=== PATIENT | female | born 1945 | race Caucasian/White ===

== ENCOUNTER → 2017-09-08 09:56 | Outpatient (CLI) | payer MEDICARE, MEDICAID, SELFPAY ==
--- NOTE | 2017-09-08 | DI.MG.S_ITS ---
BILATERAL DIGITAL SCREENING MAMMOGRAM 3D/2D WITH CAD: 09/08/2017 CLINICAL: Routine screening. Comparison is made to exams dated: 02/20/2016 mammogram and 03/05/2016 mammogram - [facility]. The tissue of both breasts is heterogeneously dense. This may lower the sensitivity of mammography. Current study was also evaluated with a Computer Aided Detection (CAD) system. No significant masses, calcifications, or other findings are seen in either breast. There has been no significant interval change. IMPRESSION: NEGATIVE There is no mammographic evidence of malignancy. A 1 year screening mammogram is recommended. This exam was interpreted at Station ID: [id number]. NOTE: For mammograms, a report in lay terms will be sent to the patient. Approximately 15% of breast malignancies will not be visualized mammographically. In the management of a palpable breast mass, a negative mammogram must not discourage biopsy of a clinically suspicious lesion. Electronically Signed By: Xavi sellers/rasta:09/08/2017 17:08:17 letter sent: Normal Exam ACR BI-RADS Category 1: Negative [id number]
== END ==
PROVIDERS: PCP Physician Assistant; Visit Provider Physician Assistant
DX: Z12.31 Encounter for screening mammogram for malignant neoplasm of breast (principal)
CPT/HCPCS: 77063; 77067

== ENCOUNTER → 2017-10-12 10:18 | Outpatient (CLI) | payer MEDICARE, MEDICAID, SELFPAY ==
--- NOTE | 2017-10-12 | DI.US.S_ITS ---
PROCEDURE: US ARTERIAL DUPLEX LE BI INDICATIONS: PERIPHERAL VASCULAR DISEASE TECHNIQUE: Color and pulse Doppler interrogation was performed of both lower extremity arterial systems, with image documentation. COMPARISON: None. FINDINGS: Right lower extremity: Common femoral artery: 101 cm/sec, with biphasic flow. Deep femoral artery: 213 cm/sec, with monophasic flow. Proximal superficial femoral artery: 70 cm/sec, with monophasic flow. Mid superficial femoral artery: 178 cm/sec, with triphasic flow. Distal superficial femoral artery: 114 cm/sec, with monophasic flow. Popliteal artery: 64 cm/sec, with monophasic flow. Posterior tibial artery: 23 cm/sec, with monophasic flow. Anterior tibial artery/dorsalis pedis: 40 cm/sec, with monophasic flow. Hernandez-scale imaging description: Scattered plaque Left lower extremity: Common femoral artery: 199 cm/sec, with monophasic flow. Deep femoral artery: 229 cm/sec, with monophasic flow. Proximal superficial femoral artery: 180 cm/sec, with monophasic flow. Mid superficial femoral artery: 102 cm/sec, with monophasic flow. Distal superficial femoral artery: 78 cm/sec, with monophasic flow. Popliteal artery: No flow Posterior tibial artery: 35 cm/sec, with monophasic flow. Anterior tibial artery/dorsalis pedis: 36 cm/sec, with monophasic flow. Hernandez-scale imaging description: Scattered plaque IMPRESSION: 1. Left popliteal artery is occluded with 2 vessel runoff via collaterals 2. High grade stenosis at the origin of both profundus femoris arteries and possibly at the distal aspect of the left common femoral artery and in the midportion of the right superficial femoral artery. Possibility of stenosis in the proximal left superficial femoral artery is indeterminate. 3. Monophasic waveforms are evident throughout the lower extremities bilaterally. Dictated by: Erik West M.D. on 10/12/2017 at 14:17 Approved by: Erik West M.D. on 10/12/2017 at 14:22
== END ==
PROVIDERS: PCP Physician Assistant; Visit Provider Internal Medicine Cardiovascular Disease
DX: I70.203 Unspecified atherosclerosis of native arteries of extremities, bilateral legs (principal)
CPT/HCPCS: 93925

== ENCOUNTER → 2017-11-02 11:09 | Outpatient (CLI) | payer MEDICARE, MEDICAID, SELFPAY ==
[2017-11-02 12:18] LABS: Add Manual Diff / Slide Review NO; Basophils Percent Auto 0.3 % (0-2); Eosinophils Percent Auto 3.1 % (2-4); Hematocrit 28.9 % (36-46); Hemoglobin 9.8 g/dL (12.0-16.0); Lymphocytes Percent Auto 32.1 % (25-40); Mean Corpuscular HGB Conc 33.8 % (30-36); Mean Corpuscular Hemoglobin 33.8 PG (26-34); Mean Corpuscular Volume 100.1 fL (80-100); Monocytes Percent Auto 11.4 % (3-14); Neutrophils Absolute Auto 3000 /uL (3000-5900); Neutrophils Percent Auto 53.1 % (50-75); Platelet Count 146 X10^3/uL (150-400); Red Blood Cell Count 2.89 X10^6/uL (4.0-5.2); Red Cell Distribution Width 14.1 % (11.6-14.8); White Blood Cell Count 5.6 X10^3/uL (4.5-11.0)
[2017-11-02 12:43] LABS: BUN Creatinine Ratio 33.8 (6-22); Blood Urea Nitrogen 27 mg/dL (7-17); Calcium 9.5 mg/dL (8.4-10.2); Carbon Dioxide 34 mmol/L (22-32); Chloride 102 mmol/L (98-107); Estimated Glomerular Filt Rate > 60.0 mL/min (>60); Glucose 108 mg/dL (80-110); HEMOLYSIS < 15 (0-50); Potassium 4.5 mmol/L (3.4-5.1); Sodium 142 mmol/L (137-145)
== END ==
PROVIDERS: PCP Physician Assistant; Visit Provider Internal Medicine Cardiovascular Disease
DX: I10 Essential (primary) hypertension (principal); I73.9 Peripheral vascular disease, unspecified
CPT/HCPCS: 36415; 80048; 85025

== ENCOUNTER → 2017-11-19 10:09 | Outpatient (CLI) | payer MEDICARE, MEDICAID, SELFPAY ==
[2017-11-19 11:16] LABS: Add Manual Diff / Slide Review NO; Basophils Percent Auto 0.2 % (0-2); Eosinophils Percent Auto 2.9 % (2-4); Hematocrit 35.7 % (36-46); Lymphocytes Percent Auto 31.8 % (25-40); Mean Corpuscular HGB Conc 33.6 % (30-36); Mean Corpuscular Hemoglobin 34.3 PG (26-34); Mean Corpuscular Volume 101.9 fL (80-100); Neutrophils Absolute Auto 2400 /uL (3000-5900); Neutrophils Percent Auto 54.1 % (50-75); Platelet Count 213 X10^3/uL (150-400); Red Cell Distribution Width 15.4 % (11.6-14.8); White Blood Cell Count 4.4 X10^3/uL (4.5-11.0)
[2017-11-19 11:34] LABS: BUN Creatinine Ratio 32.9 (6-22); Blood Urea Nitrogen 23 mg/dL (7-17); Calcium 9.1 mg/dL (8.4-10.2); Carbon Dioxide 36 mmol/L (22-32); Chloride 102 mmol/L (98-107); Estimated Glomerular Filt Rate > 60.0 mL/min (>60); Glucose 111 mg/dL (80-110); HEMOLYSIS < 15 (0-50); Potassium 4.1 mmol/L (3.4-5.1); Sodium 144 mmol/L (137-145)
== END ==
PROVIDERS: PCP Physician Assistant; Visit Provider Registered Nurse
DX: I73.9 Peripheral vascular disease, unspecified (principal); I10 Essential (primary) hypertension
CPT/HCPCS: 36415; 80048; 85025

== ENCOUNTER → 2018-01-26 14:39 | Outpatient (CLI) | payer MEDICARE, MEDICAID, SELFPAY | PROVIDERS: PCP Physician Assistant; Visit Provider Physician Assistant | DX: M81.0 Age-related osteoporosis without current pathological fracture (principal); Z78.0 Asymptomatic menopausal state; E11.9 Type 2 diabetes mellitus without complications; Z87.891 Personal history of nicotine dependence | CPT/HCPCS: 77080 ==

== ENCOUNTER → 2018-04-02 08:10 | Outpatient (CLI) | payer MEDICARE, MEDICAID, SELFPAY ==
--- NOTE | 2018-04-02 | DI.US.S_ITS ---
PROCEDURE: US ARTERIAL DUPLEX LE BI INDICATIONS: PVD TECHNIQUE: Color and pulse Doppler interrogation was performed of both lower extremity arterial systems, with image documentation. COMPARISON: [facility] Ultrasound, US, US ARTERIAL LOWER EXTREMITY DOPPLER BILATERAL, 11/20/2017, 10:25. [facility], US, US ARTERIAL DUPLEX LE BI, 10/12/2017, 10:36. FINDINGS: Right lower extremity: Common femoral artery: 106 cm/sec, with biphasic flow. Deep femoral artery: 219 cm/sec, with monophasic flow. Proximal superficial femoral artery: 70 cm/sec, with monophasic flow. Mid superficial femoral artery: 148 cm/sec, with monophasic flow. Distal superficial femoral artery: 113 cm/sec, with monophasic flow. Popliteal artery: 67 cm/sec, with monophasic flow. Posterior tibial artery: 21 cm/sec, with monophasic flow. Anterior tibial artery/dorsalis pedis: 47 cm/sec, with monophasic flow. Hernandez-scale imaging description: Scattered plaque. Left lower extremity: Common femoral artery: 253 cm/sec, with monophasic flow. Deep femoral artery: 35 cm/sec, with monophasic flow. Proximal superficial femoral artery: 87 cm/sec, with monophasic flow. Mid superficial femoral artery: 82 cm/sec, with monophasic flow. Distal superficial femoral artery: 104 cm/sec, with monophasic flow. Popliteal artery: 112 cm/sec, with monophasic flow. Posterior tibial artery: 49 cm/sec, with monophasic flow. Anterior tibial artery/dorsalis pedis: 54 cm/sec, with monophasic flow. Hernandez-scale imaging description: Scattered plaque. IMPRESSION: 1. Diffuse monophasic flow bilaterally. 2. It is noted that the popliteal artery on the left was previously occluded now demonstrates revascularization. 3. Improved appearance of previous stenosis identified within the distal right superficial femoral artery. Dictated by: Christy Johnson M.D. on 04/02/2018 at 16:16 Approved by: Christy Johnson M.D. on 04/02/2018 at 16:22
== END ==
PROVIDERS: PCP Physician Assistant; Visit Provider Registered Nurse
DX: I73.9 Peripheral vascular disease, unspecified (principal)
CPT/HCPCS: 93925

== ENCOUNTER → 2018-06-23 11:04 | Outpatient (CLI) | payer MEDICARE, MEDICAID, SELFPAY ==
--- NOTE | 2018-06-23 | DI.RAD.S_ITS ---
PROCEDURE: XR HIP W PEL IF DONE LT 2V INDICATIONS: LEFT HIP PAIN TECHNIQUE: AP pelvis with lateral view(s) of the left hip(s). COMPARISON: None. FINDINGS: Bones: No fractures or dislocations. Pelvic ring appears intact. No suspicious bony lesions. Soft tissues: The visualized bowel gas pattern is normal. No suspicious soft tissue calcifications. IMPRESSION: Normal for age, source of current left hip pain symptoms is not seen. Dictated by: Gerardo Brito M.D. on 06/23/2018 at 13:18 Approved by: Gerardo Brito M.D. on 06/23/2018 at 13:18
== END ==
PROVIDERS: PCP Physician Assistant; Visit Provider Physician Assistant
DX: M25.552 Pain in left hip (principal)
CPT/HCPCS: 73502

== ENCOUNTER → 2018-09-13 14:04 | Outpatient (CLI) | payer MEDICARE, MEDICAID, SELFPAY ==
--- NOTE | 2018-09-13 | DI.MG.S_ITS ---
BILATERAL DIGITAL SCREENING MAMMOGRAM 3D/2D WITH CAD: 09/13/2018 CLINICAL: Routine screening. Comparison is made to exams dated: 09/08/2017 mammogram, 03/05/2016 mammogram, and 02/20/2016 mammogram - [facility]. The tissue of both breasts is heterogeneously dense. This may lower the sensitivity of mammography. Current study was also evaluated with a Computer Aided Detection (CAD) system. There are benign calcifications in both breasts. No significant masses, calcifications, or other findings are seen in either breast. There has been no significant interval change. IMPRESSION: There is no mammographic evidence of malignancy. A 1 year screening mammogram is recommended. This exam was interpreted at Station ID: [id number]. NOTE: For mammograms, a report in lay terms will be sent to the patient. Approximately 15% of breast malignancies will not be visualized mammographically. In the management of a palpable breast mass, a negative mammogram must not discourage biopsy of a clinically suspicious lesion. Electronically Signed By: Gee valladares/rasta:09/13/2018 17:43:32 letter sent: Normal Exam ACR BI-RADS Category 2: Benign Finding(s) 3342F
== END ==
PROVIDERS: PCP Physician Assistant; Visit Provider Physician Assistant
DX: Z12.31 Encounter for screening mammogram for malignant neoplasm of breast (principal)
CPT/HCPCS: 77063; 77067

== ENCOUNTER → 2018-10-13 10:48 | Outpatient (CLI) | payer MEDICARE, MEDICAID, SELFPAY ==
[2018-10-13 12:06] LABS: BUN Creatinine Ratio 31.4 (6-22); Blood Urea Nitrogen 22 mg/dL (7-17); Calcium 9.7 mg/dL (8.4-10.2); Carbon Dioxide 34 mmol/L (22-32); Chloride 99 mmol/L (98-107); Estimated Glomerular Filt Rate > 60.0 mL/min (>60); Glucose 111 mg/dL (80-110); HEMOLYSIS < 15 (0-50); Potassium 3.8 mmol/L (3.4-5.1); Sodium 141 mmol/L (137-145)
== END ==
PROVIDERS: Family Provider Physician Assistant; PCP Physician Assistant; Visit Provider Registered Nurse
DX: I10 Essential (primary) hypertension (principal)
CPT/HCPCS: 36415; 80048

== ENCOUNTER → 2018-11-16 13:23 | Outpatient (CLI) | payer MEDICARE, MEDICAID, SELFPAY ==
--- NOTE | 2018-11-16 | DI.ECHO.S_ITS ---
[place] [facility]---------+ [facility] +---------+ : : [address] [address] : : : : [id number] : : : : Phone: [phone] Echocardiogram Report + + :Name: DEEPAK JAMIL Study Date: 11/16/2018 Height: 68 in : :[facility] Exam Location: [facility] Weight: 160 lb : : Gender: Female BSA: 1.9 m2 : :: 1945 Age: 72 yrs BP: 148/80 mmHg: :Reason For Study: HTN : : Performed By: Joseph Orozco : :Referring: ADDISON LEON : + + Interpretation Summary Left ventricular wall thickness is mildly increased. The ejection fraction is estimated to be 60-65%. The right ventricle is mildly dilated. Both atria are severely dilated. There is moderate mitral regurgitation. There is mild to moderate tricuspid regurgitation. The right ventricular systolic pressure is estimated to be at least 56 mmHg based on an estimated right atrial pressure of 15 mm Hg. Procedure: A two-dimensional transthoracic echocardiogram with color flow and Doppler was performed. The study quality was technically good. Comparison is made with the echocardiogram of 10/01/09. The patient was in normal sinus rhythm during the exam. The patient had frequent PACs during the exam. Left Ventricle: The left ventricle is normal in size. Left ventricular wall thickness is mildly increased. The ejection fraction is estimated to be 60- 65%. There are no focal wall motion abnormalities. Right Ventricle: The right ventricle is mildly dilated. The right ventricular systolic function is normal. Atria: Both atria are severely dilated. The interatrial septum is intact with no evidence for an atrial septal defect. Mitral Valve: The mitral valve is normal in structure and function. The mitral valve leaflets are mildly calcified. There is moderate mitral regurgitation. Aortic Valve: The aortic valve is trileaflet. The aortic valve is mildly calcified. The aortic valve opens well. No aortic regurgitation is present. Tricuspid Valve: The tricuspid valve is normal in structure and function. There is mild to moderate tricuspid regurgitation. The right ventricular systolic pressure is estimated to be at least 56 mmHg based on an estimated right atrial pressure of 15 mm Hg. Pulmonic Valve: The pulmonic valve is normal in structure and function. There is trace pulmonic regurgitation. Great Vessels: The aortic root is normal size. The ascending aorta is mildly enlarged. The aortic arch is severely enlarged. Moderately dilated abdominal aorta. Fixed mural thrombus (thrombi) in descending aorta. The pulmonary artery is normal size. Pericardium/ Pleura There is no pericardial effusion. There is no pleural effusion. MMode/2D Measurements & Calculations LVIDd: 4.8 cm LVOT diam: 2.0 cm LVIDs: 2.9 cm Ao root diam: 3.0 cm FS: 38.9 % Aortic Jxn: 2.6 cm EPSS: 0.26 cm asc Aorta Diam: 3.7 cm IVSd: 1.3 cm Ao Arch Diam (Prox Trans): 5.1 cm LVPWd: 1.1 cm LV kenney. diameter/BSA (cm/m^2): 2.6 LV sys. diameter/BSA (cm/m^2): 1.6 LA dimension: 4.8 cm RA long axis: 6.1 cm LA A2 area: 25.4 cm2 RA area: 32.8 cm2 LA A4 area: 29.1 cm2 RA vol: 150.9 ml LA length (vol): 6.1 cm RA : 81.2 ml/m2 LA vol: 102.9 ml IVC diam: 2.3 cm LA vol index: 55.3 ml/m2 RVD1 (basal): 4.4 cm RVD2 (mid): 4.1 cm Doppler Measurements & Calculations Ao V2 max: 167.1 cm/sec LVOT Max Faraz: 129.6 cm/sec Ao V2 mean: 124.3 cm/sec LV V1 max P.7 mmHg Ao max P.2 mmHg LV V1 VTI: 25.3 cm Ao mean P.5 mmHg COLTON(I,D): 2.5 cm2 Ao V2 VTI: 31.7 cm COLTON(V,D): 2.5 cm2 sev ratio: 0.80 COLTON indexed to BSA (cm^2/m^2): 1.4 MV E max faraz: 74.6 cm/sec TR max faraz: 321.0 cm/sec MV A max faraz: 61.1 cm/sec TR max P.2 mmHg MV E/A: 1.2 PA V2 max: 97.4 cm/sec Med Peak E' Faraz: 3.5 cm/sec PA V2 mean: 71.7 cm/sec E/E' med: 21.3 PA mean P.2 mmHg Lat Peak E' Faraz: 12.1 cm/sec PA pr(Accel): 46.6 mmHg E/E' lat: 6.2 PA Accel Time: 0.07 sec E/e' average: 13.7 MV dec time: 0.20 sec SV(LVOT): 80.1 ml Reading Physician:02:44 PM
== END ==
PROVIDERS: Family Provider Physician Assistant; PCP Physician Assistant; Visit Provider Internal Medicine Cardiovascular Disease
DX: I08.1 Rheumatic disorders of both mitral and tricuspid valves (principal); I10 Essential (primary) hypertension
CPT/HCPCS: 93306

== ENCOUNTER → 2018-11-19 08:57 | Outpatient (CLI) | payer MEDICARE, MEDICAID, SELFPAY ==
[2018-11-19 09:26] LABS: BUN Creatinine Ratio 44.3 (6-22); Blood Urea Nitrogen 31 mg/dL (7-17); Calcium 9.2 mg/dL (8.4-10.2); Carbon Dioxide 34 mmol/L (22-32); Chloride 98 mmol/L (98-107); Estimated Glomerular Filt Rate > 60.0 mL/min (>60); Glucose 174 mg/dL (80-110); HEMOLYSIS < 15 (0-50); Potassium 4.2 mmol/L (3.4-5.1); Sodium 140 mmol/L (137-145)
--- NOTE | 2018-11-19 09:48 | DI.CT.S_ITS ---
PROCEDURE: CT ANGIO ABD AORTA RUNOFF INDICATIONS: BILATERAL LEG EDEMA TECHNIQUE: After the administration of intravenous contrast, 2.5 mm sections acquired from T12 to the feet, with optional delayed image acquisition from the knees to the feet. 3-dimensional maximum intensity projection (MIP) coronal and sagittal reformats, and/or 3-dimensional volume rendering reformatting was then performed. For radiation dose reduction, the following was used: automated exposure control. COMPARISON: [facility], US, US ARTERIAL LOWER EXTREMITY WITH ILIAC DOPPLER BILATERAL, 10/26/2018, 11:30. FINDINGS: Image quality: Excellent. Extravascular tissues: Lung bases are clear. Heart size is enlarged. Liver is normal in size and enhancement. Gallbladder is not seen. Biliary system is non dilated. Pancreas enhances normally. Spleen is normal in size and enhancement. There is a right adrenal nodule measuring 18 mm which was not definitely seen on the prior examination. No left adrenal nodules. There is a 20 mm partially exophytic cystic focus within the right interpolar kidney laterally which demonstrates a small, 3 mm diameter focus of peripheral nodular enhancement. Small nonobstructing calcifications within the right inferior pole and interpolar kidney are present. Kidneys are otherwise normal in size and enhancement, without hydronephrosis. Non opacified bowel loops demonstrate normal wall thickness and enhancement. No free fluid or air. No retroperitoneal or mesenteric adenopathy. No ventral hernias. Bladder wall thickness is normal. No inguinal hernias or adenopathy. No suspicious bony lesions. No vertebral body compression fractures. Thoracoabdominal aorta: See lower thoracic aorta demonstrates aneurysmal dilatation, measuring 15 mm short axis. There is aneurysmal dilatation of the upper abdominal aorta measuring 55 mm short axis, with moderate mural thrombus. There is mild aneurysmal dilatation of the infrarenal abdominal aorta, measuring roughly 37 mm short axis, with moderate mural thrombus. Renal and mesenteric arteries: High grade focal stenosis within the celiac artery origin. Superior mesenteric artery is patent. Inferior mesenteric artery demonstrates a moderate origin stenosis. Single bilateral renal arteries are present, which are patent. Right lower extremity: Moderate calcific stenosis of the right common iliac artery origin. Common iliac arteries otherwise mildly diffusely stenotic. Internal iliac artery demonstrates moderate diffuse stenosis. External iliac artery demonstrates mild diffuse calcific stenosis with a superimposed moderate focal weblike stenosis distally. The common femoral artery is mildly dilated measuring 12 mm short axis. Profundofemoral artery demonstrates a moderate origin stenosis. Superficial femoral artery demonstrates multifocal moderate and high grade stenoses. Above knee popliteal artery demonstrates multifocal moderate stenoses. Below knee popliteal artery is mildly diffusely stenotic. Anterior tibial artery, tibioperoneal trunk, peroneal and posterior tibial arteries are patent. Left lower extremity: There is mild diffuse calcific stenosis of the common iliac artery. Internal iliac artery demonstrates moderate diffuse stenosis. External iliac artery demonstrates a short segment limited proximal dissection proximally, and is otherwise mildly diffusely stenotic. High moderate diffuse stenosis within the common femoral artery, with superimposed high-grade focal stenoses proximally, and distally. Profundofemoral artery demonstrates a moderate origin stenosis. Superficial femoral artery demonstrates multifocal moderate high-grade stenoses. Above-knee popliteal artery demonstrates multifocal high grade stenoses and occlusions distally. Below knee popliteal artery's occluded. Reconstituted flow within the proximal anterior tibial artery is present, which is otherwise patent. Tibioperoneal trunk is mildly diffusely stenotic with a superimposed high-grade focal stenosis within its midportion. Peroneal artery is grossly patent to its normal terminus. Posterior tibial artery is grossly patent. IMPRESSION: 1. Indeterminate right renal lesion, possibly indicating low-grade neoplasm. Initial further assessment with renal protocol CT is recommended. Urological consultation recommended. 2. Possibly new right adrenal nodule, which could be further assessed with adrenal protocol MRI, if clinically indicated. 3. Bilateral inflow stenoses as described above. Short segment limited dissection within the left external iliac artery. 4. Bilateral outflow stenoses. Left-sided outflow occlusion. 5. 3 vessel runoff bilaterally. 6. Nonobstructing right renal calculi. 7. Coronary artery disease. Dictated by: Carlee Paniagua M.D. on 11/19/2018 at 15:09 Approved by: Carlee Paniagua M.D. on 11/19/2018 at 17:13
== END ==
PROVIDERS: Family Provider Physician Assistant; PCP Physician Assistant; Visit Provider Surgery Vascular Surgery
DX: I70.203 Unspecified atherosclerosis of native arteries of extremities, bilateral legs (principal); I71.6 Thoracoabdominal aortic aneurysm, without rupture; R60.0 Localized edema; N28.9 Disorder of kidney and ureter, unspecified; N20.0 Calculus of kidney; I25.10 Atherosclerotic heart disease of native coronary artery without angina pectoris; E27.9 Disorder of adrenal gland, unspecified
CPT/HCPCS: 36415; 75635; 80048; Q9967

== ENCOUNTER → 2018-12-28 09:36 | Outpatient (CLI) | payer MEDICARE, MEDICAID, SELFPAY ==
--- NOTE | 2018-12-28 | DI.CT.S_ITS ---
PROCEDURE: CT ABDOMEN WO/W CON INDICATIONS: Cyst of kidney, acquired TECHNIQUE: Optional 5 mm thick noncontrast images acquired from the diaphragm to the iliac crests. After the administration of intravenous contrast, 5 mm thick images again acquired from the diaphragm to the iliac crests in the arterial and urographic phases. 5 mm thick coronal and sagittal reformats were then acquired. For radiation dose reduction, the following was used: automated exposure control, adjustment of mA and/or kV according to patient size. COMPARISON: [facility], CT, CT ANGIO ABD AORTA RUNOFF, 11/19/2018, 9:54. FINDINGS: Image quality: Excellent. Lung bases: Lung bases are clear. Heart size is enlarged. The distal thoracic aorta is aneurysmal measuring up to 4.9 cm transversely in the chest and about 5.2 cm in greatest diameter at the level of the diaphragmatic hiatus. Genitourinary: Precontrast images demonstrate 2 punctate nonobstructing right lower pole intrarenal calcifications, and one in the left lower pole. Additionally, there are multiple small corticomedullary hyperdense foci measuring 15 mm and less in each kidney. The partially exophytic cystic mass arising from the lateral midpole the right kidney measuring about 2.1 cm has precontrast Hounsfield units of approximately 15. Postcontrast, there is no significant internal enhancement of this mass which measures about 20 Hounsfield units maximally on delayed. There is a precontrast hyperdense rounded focus along the posterior medial inferior margin. A fine septation posteriorly is visible. Better demonstrates innumerable small corticomedullary cysts in each kidney as well as an irregular cystic area in the anterior left upper pole renal cortex with small amounts of overlying cortical thinning and punctate calcifications, potentially scar. Other solid organs: Liver is smooth in margin. Left lobe hypertrophy. There is a small rim calcifications along the superior subcapsular liver dome, and a gently lobulated 2.8 cm cyst centrally in the right liver lobe. Gallbladder is decompressed. Biliary system is non dilated. Pancreas enhances normally. Spleen is normal in size and enhancement. Mild bilateral adrenal gland thickening. Peritoneum and bowel: Unenhanced bowel loops are normal in wall thickness and caliber. No free fluid or air. Nodes and vessels: No retroperitoneal or mesenteric adenopathy by size criteria. Tortuous, aneurysmal, and atherosclerotic abdominal aorta. Dilated inferior vena cava. Bones: No suspicious bony lesions. Chronic appearing L5 compression fracture. Decreased mineralization.. Miscellaneous: No ventral hernias. IMPRESSION: 1. 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 No further followup is needed. 2. Multiple other simple and hyperdense renal cysts in each kidney. No suspicious enhancing solid masses are identified. 3. Bilateral nonobstructing nephrolithiasis. 4. Thoracoabdominal aortic aneurysm, previously characterized and without significant size change since most recent prior study. Dictated by: Carlie Epstein M.D. on 12/28/2018 at 11:08 Approved by: Carlie Epstein M.D. on 12/28/2018 at 11:37
== END ==
PROVIDERS: PCP Physician Assistant; Visit Provider Physician Assistant
DX: N28.1 Cyst of kidney, acquired (principal); N20.0 Calculus of kidney; I71.2 Thoracic aortic aneurysm, without rupture
CPT/HCPCS: 74170; Q9967

== ENCOUNTER → 2019-02-22 14:54 | Outpatient (ROUT) | payer MEDICARE, MEDICAID, SELFPAY ==
[2019-02-22 16:59] LABS: Add Manual Diff / Slide Review NO; Basophils Absolute Auto 0 /uL (0-100); Basophils Percent Auto 0.2 % (0-2); Eosinophils Absolute Auto 100 /uL (0-450); Eosinophils Percent Auto 2.4 % (2-4); Hematocrit 33.8 % (36-46); Lymphocytes Absolute Auto 1100 /uL (1100-4500); Lymphocytes Percent Auto 29.8 % (25-40); Mean Corpuscular HGB Conc 32.6 % (30-36); Mean Corpuscular Hemoglobin 32.6 PG (26-34); Mean Corpuscular Volume 100.1 fL (80-100); Monocytes Absolute Auto 500 /uL (0-900); Monocytes Percent Auto 12.7 % (3-14); Neutrophils Absolute Auto 2100 /uL (1500-7000); Neutrophils Percent Auto 54.9 % (50-75); Platelet Count 155 X10^3/uL (150-400); Red Blood Cell Count 3.38 X10^6/uL (4.0-5.2); Red Cell Distribution Width 13.7 % (11.6-14.8); White Blood Cell Count 3.7 X10^3/uL (4.5-11.0)
[2019-02-22 17:04] LABS: Alanine Aminotransferase 8 IU/L (<35); Albumin 3.8 g/dL (3.5-5.0); Albumin Globulin Ratio 1.4 (1.0-2.8); Alkaline Phosphatase 59 U/L (38-126); Aspartate Aminotransferase 28 IU/L (14-36); BUN Creatinine Ratio 36.3 (6-22); Blood Urea Nitrogen 29 mg/dL (7-17); Calcium 9.1 mg/dL (8.4-10.2); Carbon Dioxide 33 mmol/L (22-32); Chloride 101 mmol/L (98-107); Cholesterol 112 mg/dL (140-199); Estimated Glomerular Filt Rate > 60.0 mL/min (>60); Globulin 2.8 g/dL (1.7-4.1); Glucose 87 mg/dL (80-110); HDL Cholesterol 38 mg/dL (40-60); HEMOLYSIS < 15 (0-50); Hemoglobin A1C% w Est Avg Glu 5.9 % (4.0-6.0); LDL Cholesterol Calculated 59 mg/dL (<100); Magnesium 1.8 mg/dL (1.6-2.3); Potassium 3.8 mmol/L (3.4-5.1); Sodium 140 mmol/L (137-145); Total Protein 6.6 g/dL (6.3-8.2); Triglycerides 74 mg/dL (35-150)
== END ==
PROVIDERS: PCP Physician Assistant; Visit Provider Physician Assistant
DX: I10 Essential (primary) hypertension (principal); E78.2 Mixed hyperlipidemia; E11.40 Type 2 diabetes mellitus with diabetic neuropathy, unspecified; I48.20 Chronic atrial fibrillation, unspecified
CPT/HCPCS: 80053; 80061; 83036; 83735; 85025

== ENCOUNTER → 2019-06-21 14:32 | Outpatient (CLI) | payer MEDICARE, MEDICAID, SELFPAY | PROVIDERS: Family Provider Physician Assistant; PCP Physician Assistant; Referring Provider Physician Assistant; Visit Provider Family Medicine | DX: I87.2 Venous insufficiency (chronic) (peripheral) (principal); L97.821 Non-pressure chronic ulcer of other part of left lower leg limited to breakdown of skin; L97.321 Non-pressure chronic ulcer of left ankle limited to breakdown of skin; E11.621 Type 2 diabetes mellitus with foot ulcer; I73.9 Peripheral vascular disease, unspecified; L03.116 Cellulitis of left lower limb; R60.0 Localized edema | CPT/HCPCS: 11042; 87070; 87075; 87077; 87147; 87186; 87205; 99203; 99213 ==

== ENCOUNTER → 2019-06-23 10:32 | Outpatient (CLI) | payer MEDICARE, MEDICAID, SELFPAY | PROVIDERS: Family Provider Physician Assistant; PCP Physician Assistant; Referring Provider Physician Assistant; Visit Provider Family Medicine | DX: I87.2 Venous insufficiency (chronic) (peripheral) (principal); E11.621 Type 2 diabetes mellitus with foot ulcer; L97.321 Non-pressure chronic ulcer of left ankle limited to breakdown of skin; L97.821 Non-pressure chronic ulcer of other part of left lower leg limited to breakdown of skin; I73.9 Peripheral vascular disease, unspecified; E11.40 Type 2 diabetes mellitus with diabetic neuropathy, unspecified; L03.116 Cellulitis of left lower limb | CPT/HCPCS: 11042; 73610; 99212 ==

== ENCOUNTER → 2019-06-23 14:34 | Outpatient (CLI) | payer MEDICARE, MEDICAID, SELFPAY ==
--- NOTE | 2019-06-23 | DI.RAD.S_ITS ---
PROCEDURE: XR ANKLE RT MIN 3V INDICATIONS: NON HEALING SORES ON THE LATERAL MALLEOLUS TECHNIQUE: 3 views of the ankle were acquired. COMPARISON: None. FINDINGS: Bones: No fractures or dislocations. Ankle mortise is normally aligned. No suspicious bony lesions. No periosteal reaction. No gadiel osseous erosive changes. Soft tissues: No tibiotalar joint effusion. Achilles tendon appears normal. Soft tissue defect noted lateral to lateral malleolus compatible with recording nonhealing wound. No soft tissue gas. IMPRESSION: No gadiel evidence of osteomyelitis. Plain film radiographs can be insensitive to osteomyelitis during the initial 15 days of the disease process. If there is clinical concern for osteomyelitis, then three-phase nuclear medicine bone scan should be considered for further evaluation. Dictated by: Amelia Monet MD, PhD on 06/23/2019 at 15:16 Approved by: Amelia Monet MD, PhD on 06/23/2019 at 15:17
== END ==
PROVIDERS: Family Provider Physician Assistant; PCP Physician Assistant; Referring Provider Family Medicine; Visit Provider Family Medicine
DX: E11.621 Type 2 diabetes mellitus with foot ulcer (principal); L97.821 Non-pressure chronic ulcer of other part of left lower leg limited to breakdown of skin; L97.321 Non-pressure chronic ulcer of left ankle limited to breakdown of skin; I87.2 Venous insufficiency (chronic) (peripheral)
CPT/HCPCS: 73610

== ENCOUNTER → 2019-06-30 14:03 | Outpatient (CLI) | payer MEDICARE, MEDICAID, SELFPAY ==
[2019-06-30 17:23] LABS: Add Manual Diff / Slide Review NO; Basophils Absolute Auto 0 /uL (0-100); Basophils Percent Auto 0.2 % (0-2); Eosinophils Absolute Auto 100 /uL (0-450); Eosinophils Percent Auto 1.9 % (2-4); Hematocrit 31.4 % (36-46); Hemoglobin 10.5 g/dL (12.0-16.0); Lymphocytes Absolute Auto 1000 /uL (1100-4500); Lymphocytes Percent Auto 17.6 % (25-40); Mean Corpuscular HGB Conc 33.3 % (30-36); Mean Corpuscular Hemoglobin 31.9 PG (26-34); Mean Corpuscular Volume 95.8 fL (80-100); Monocytes Absolute Auto 700 /uL (0-900); Monocytes Percent Auto 12.1 % (3-14); Neutrophils Absolute Auto 3900 /uL (1500-7000); Neutrophils Percent Auto 68.2 % (50-75); Platelet Count 190 X10^3/uL (150-400); Red Blood Cell Count 3.28 X10^6/uL (4.0-5.2); Red Cell Distribution Width 16.3 % (11.6-14.8); White Blood Cell Count 5.8 X10^3/uL (4.5-11.0)
[2019-06-30 17:31] LABS: D Dimer 610 ng/mL (<230)
[2019-06-30 17:33] LABS: Alanine Aminotransferase 9 IU/L (<35); Albumin 3.7 g/dL (3.5-5.0); Alkaline Phosphatase 82 U/L (38-126); Aspartate Aminotransferase 29 IU/L (14-36); BUN Creatinine Ratio 28.8 (6-22); Bilirubin Total 0.7 mg/dL (0.2-1.3); Blood Urea Nitrogen 17 mg/dL (7-17); Carbon Dioxide 32 mmol/L (22-32); Chloride 96 mmol/L (98-107); Estimated Glomerular Filt Rate > 60.0 mL/min (>60); Globulin 3.6 g/dL (1.7-4.1); Glucose 118 mg/dL (80-110); HEMOLYSIS < 15 (0-50); Potassium 4.5 mmol/L (3.4-5.1); Sodium 135 mmol/L (137-145); Total Protein 7.3 g/dL (6.3-8.2)
[2019-06-30 17:38] LABS: Prealbumin 8.4 mg/dL (17.6-36.0)
[2019-06-30 17:42] LABS: Erythrocyte Sedimentation Rate 77 MM/HR (0-20)
[2019-06-30 17:56] LABS: C-Reactive Protein Quant 12.5 mg/dL (<1.0)
== END ==
PROVIDERS: Family Provider Physician Assistant; PCP Physician Assistant; Referring Provider Physician Assistant; Visit Provider Family Medicine
DX: I87.2 Venous insufficiency (chronic) (peripheral) (principal); E11.621 Type 2 diabetes mellitus with foot ulcer; L97.821 Non-pressure chronic ulcer of other part of left lower leg limited to breakdown of skin; L97.321 Non-pressure chronic ulcer of left ankle limited to breakdown of skin; I73.9 Peripheral vascular disease, unspecified; L03.116 Cellulitis of left lower limb; E11.40 Type 2 diabetes mellitus with diabetic neuropathy, unspecified; R60.0 Localized edema; E11.622 Type 2 diabetes mellitus with other skin ulcer
CPT/HCPCS: 11042; 11045; 36415; 80053; 84134; 85025; 85379; 85651; 86140; 87070; 87077; 87147; 87186; 87205; 99214

== ENCOUNTER → 2019-07-07 13:47 | Outpatient (CLI) | payer MEDICARE, MEDICAID, SELFPAY | PROVIDERS: Family Provider Physician Assistant; PCP Physician Assistant; Referring Provider Physician Assistant; Visit Provider Family Medicine | DX: I70.262 Atherosclerosis of native arteries of extremities with gangrene, left leg (principal); L97.821 Non-pressure chronic ulcer of other part of left lower leg limited to breakdown of skin; L97.321 Non-pressure chronic ulcer of left ankle limited to breakdown of skin; I87.2 Venous insufficiency (chronic) (peripheral); E11.621 Type 2 diabetes mellitus with foot ulcer; L03.116 Cellulitis of left lower limb; Z79.02 Long term (current) use of antithrombotics/antiplatelets; Z79.84 Long term (current) use of oral hypoglycemic drugs; R60.0 Localized edema | CPT/HCPCS: 93971; 99213; 99214 ==

== ENCOUNTER → 2019-07-07 14:59 | Outpatient (CLI) | payer MEDICARE, MEDICAID, SELFPAY ==
--- NOTE | 2019-07-07 15:02 | DI.US.S_ITS ---
PROCEDURE: US PERIPH VENOUS LOW EXTREM LT INDICATIONS: EDEMA TECHNIQUE: Real-time imaging, as well as color and pulse Doppler interrogation, were performed of the lower extremity deep veins from the inguinal ligament to the popliteal fossa. COMPARISON: None. FINDINGS: The common femoral, femoral and popliteal veins are normally compressible, and free of intraluminal thrombus. Color and pulse Doppler demonstrate normal phasic intraluminal flow. There is normal augmentation response to distal compression maneuver. IMPRESSION: Negative for deep venous thrombosis. Note: An attempt was made to contact Dr. Sharif at the time of this dictation (2:36 PM [place] time on July 07, 2019), yet there was no answer the office. Dictated by: Tay Leiva M.D. on 07/07/2019 at 14:34 Approved by: Tay Leiva M.D. on 07/07/2019 at 14:36
== END ==
PROVIDERS: Family Provider Physician Assistant; PCP Physician Assistant; Referring Provider Family Medicine; Visit Provider Family Medicine
DX: R60.0 Localized edema (principal)
CPT/HCPCS: 93971

== ENCOUNTER → 2019-08-22 09:28 | Outpatient (CLI) | payer MEDICARE, MEDICAID, SELFPAY | PROVIDERS: Family Provider Physician Assistant; PCP Physician Assistant; Visit Provider Family Medicine | DX: I87.2 Venous insufficiency (chronic) (peripheral) (principal); L97.825 Non-pressure chronic ulcer of other part of left lower leg with muscle involvement without evidence of necrosis; L97.323 Non-pressure chronic ulcer of left ankle with necrosis of muscle; S81.002A Unspecified open wound, left knee, initial encounter; S81.802A Unspecified open wound, left lower leg, initial encounter; L08.9 Local infection of the skin and subcutaneous tissue, unspecified; E11.43 Type 2 diabetes mellitus with diabetic autonomic (poly)neuropathy; I73.9 Peripheral vascular disease, unspecified; D64.89 Other specified anemias | CPT/HCPCS: 11042; 11043; 11045; 87070; 87075; 87077; 87186; 87205; 97605; 99213; 99214 ==

== ENCOUNTER → 2019-08-29 12:59 | Outpatient (CLI) | payer MEDICARE, MEDICAID, SELFPAY | PROVIDERS: Family Provider Physician Assistant; PCP Physician Assistant; Referring Provider Physician Assistant; Visit Provider Family Medicine | DX: I87.2 Venous insufficiency (chronic) (peripheral) (principal); L97.325 Non-pressure chronic ulcer of left ankle with muscle involvement without evidence of necrosis; L97.825 Non-pressure chronic ulcer of other part of left lower leg with muscle involvement without evidence of necrosis; S81.002A Unspecified open wound, left knee, initial encounter; S81.802A Unspecified open wound, left lower leg, initial encounter; L08.9 Local infection of the skin and subcutaneous tissue, unspecified; E11.43 Type 2 diabetes mellitus with diabetic autonomic (poly)neuropathy; I73.9 Peripheral vascular disease, unspecified; D64.89 Other specified anemias | CPT/HCPCS: 11042; 11043; 11045; 97605; 99214 ==

== ENCOUNTER → 2019-08-31 15:49 | Outpatient (CLI) | payer MEDICARE, MEDICAID, SELFPAY ==
[2019-08-31 16:59] LABS: BUN Creatinine Ratio 15.7 (6-22); Blood Urea Nitrogen 13 mg/dL (7-17); Calcium 8.6 mg/dL (8.4-10.2); Carbon Dioxide 32 mmol/L (22-32); Chloride 95 mmol/L (98-107); Estimated Glomerular Filt Rate > 60.0 mL/min (>60); Glucose 88 mg/dL (80-110); HEMOLYSIS < 15 (0-50); Potassium 3.7 mmol/L (3.4-5.1); Sodium 134 mmol/L (137-145)
== END ==
PROVIDERS: Family Provider Physician Assistant; PCP Physician Assistant; Referring Provider Internal Medicine; Visit Provider Internal Medicine
DX: I10 Essential (primary) hypertension (principal)
CPT/HCPCS: 80048

== ENCOUNTER → 2019-09-05 13:11 | Outpatient (CLI) | payer MEDICARE, MEDICAID, SELFPAY | PROVIDERS: Family Provider Physician Assistant; PCP Physician Assistant; Referring Provider Physician Assistant; Visit Provider Family Medicine | DX: I73.9 Peripheral vascular disease, unspecified (principal); L97.326 Non-pressure chronic ulcer of left ankle with bone involvement without evidence of necrosis; M86.9 Osteomyelitis, unspecified; E11.51 Type 2 diabetes mellitus with diabetic peripheral angiopathy without gangrene; L97.821 Non-pressure chronic ulcer of other part of left lower leg limited to breakdown of skin; I87.2 Venous insufficiency (chronic) (peripheral); E11.43 Type 2 diabetes mellitus with diabetic autonomic (poly)neuropathy; S81.002A Unspecified open wound, left knee, initial encounter; S81.802A Unspecified open wound, left lower leg, initial encounter; D64.89 Other specified anemias | CPT/HCPCS: 11042; 73610; 97597; 97598; 97605; 99213 ==

== ENCOUNTER → 2019-09-05 14:56 | Outpatient (CLI) | payer MEDICARE, MEDICAID, SELFPAY ==
--- NOTE | 2019-09-05 | DI.RAD.S_ITS ---
PROCEDURE: XR ANKLE LT MIN 3V INDICATIONS: NON-HEALING ULCER OF LEFT LATERAL MALLEOLUS TECHNIQUE: 3 views of the ankle were acquired. COMPARISON: None. FINDINGS: Bones: No fractures or dislocations. Ankle mortise is normally aligned. No suspicious bony lesions. Cortical irregularity and lucency visualized involving the lateral aspect of the lateral malleolus with adjacent soft tissue ulceration. Soft tissues: No tibiotalar joint effusion. Achilles tendon appears normal. IMPRESSION: Soft tissue ulceration and osteomyelitis involving the distal aspect of the lateral malleolus. Dictated by: Pavel Chino [facility] Interpreted: Christy Johnson MD on 09/05/2019 at 17:20 Approved by: Christy Johnson M.D. on 09/05/2019 at 17:44
== END ==
PROVIDERS: Family Provider Physician Assistant; PCP Physician Assistant; Referring Provider Family Medicine; Visit Provider Family Medicine
DX: I73.9 Peripheral vascular disease, unspecified (principal); L97.326 Non-pressure chronic ulcer of left ankle with bone involvement without evidence of necrosis; M86.9 Osteomyelitis, unspecified
CPT/HCPCS: 73610

== ENCOUNTER → 2019-09-12 13:17 | Outpatient (CLI) | payer MEDICARE, MEDICAID, SELFPAY | PROVIDERS: Family Provider Physician Assistant; PCP Physician Assistant; Referring Provider Physician Assistant; Visit Provider Family Medicine | DX: E11.51 Type 2 diabetes mellitus with diabetic peripheral angiopathy without gangrene (principal); L97.821 Non-pressure chronic ulcer of other part of left lower leg limited to breakdown of skin; L97.324 Non-pressure chronic ulcer of left ankle with necrosis of bone; I87.2 Venous insufficiency (chronic) (peripheral); E11.43 Type 2 diabetes mellitus with diabetic autonomic (poly)neuropathy; S81.002A Unspecified open wound, left knee, initial encounter; S81.802A Unspecified open wound, left lower leg, initial encounter; D64.89 Other specified anemias; M86.672 Other chronic osteomyelitis, left ankle and foot; R00.0 Tachycardia, unspecified | CPT/HCPCS: 11042; 11045; 87070; 87075; 87077; 87205; 97605; 99214 ==

== ENCOUNTER → 2019-09-19 13:03 | Outpatient (CLI) | payer MEDICARE, MEDICAID, SELFPAY ==
--- NOTE | 2019-09-19 | DI.MRI.S_ITS ---
PROCEDURE: MR ANKLE LT WO/W CON INDICATIONS: Local infection of the skin and subcutaneous tissue, unspeci TECHNIQUE: Noncontrast sagittal T1 spin echo and T2 fast spin echo with fat saturation, axial proton density fast spin echo and T2 fast spin echo with fat saturation, axial T1 spin echo with fat saturation, coronal T1 spin echo and T2 fast spin echo with fat saturation through the ankle/hindfoot. Post-contrast axial, coronal, and sagittal T1 spin echo with fat saturation through the ankle/hindfoot. COMPARISON: None. FINDINGS: Image quality: Excellent. Bones and joints: Osteoarthritic changes are noted as well and coal, hindfoot and midfoot joints. No fracture or dislocation. Geographic areas of T2 hyperintense signal within the medullary space of the distal tibial shaft is seen most consistent with areas of osteonecrosis. Edema is noted involving lateral malleolus. Subtle erosive changes involving the lateral cortex of lateral malleolus is seen. Diffuse ankle soft tissue swelling is seen. Ulceration over the lateral malleolus is seen. No discrete abscess collection. Medial structures: The posterior tibialis, flexor digitorum longus, and flexor hallucis longus tendons are intact. The posterior tibial neurovascular bundle appears normal within the tarsal tunnel, without extrinsic mass effect. The deep layer (anterior and posterior tibiotalar ligaments) and superficial layer (tibionavicular, tibiospring, and tibiocalcaneal ligaments) of the deltoid ligament appear normal. The spring ligament components (superomedial calcaneonavicular, medioplantar oblique calcaneonavicular, and inferoplantar longitudinal ligaments) are intact. Lateral structures: The anterior talofibular, calcaneofibular, and posterior talofibular ligaments appear intact. More superiorly, the anterior and posterior tibiofibular ligaments appear intact, as is the intermalleolar ligament. The tibiofibular syndesmosis is normal in width at 2 mm or less. The peroneus longus and brevis tendons demonstrate normal location and morphology. Adjacent bony peroneal tubercle and retrotrochlear prominence are normal in size. The sinus tarsi demonstrates normal fatty signal, without edema, fibrosis, or cyst formation. Visualized sinus tarsi components (cervical ligament, interosseous talocalcaneal ligament, roots of the inferior extensor retinaculum) appear normal. The calcaneonavicular and calcaneocuboid components of the bifurcate ligament appear intact. The dorsal calcaneocuboid ligament appears intact. Anterior structures: The tibialis anterior, extensor hallucis longus, and extensor digitorum longus tendons appear intact. The dorsal talonavicular ligament appears intact. Posterior and plantar structures: Achilles tendon is intact. Medial and lateral bands of the plantar fascia are of normal thickness. No abductor digiti quinti muscle atrophy to suggest Rodrigues neuropathy. IMPRESSION: 1. Osteoarthritic changes throughout all ankle, hindfoot and midfoot joints. No fracture or dislocation. 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 2. Ulceration over lateral aspect of lateral malleolus with underlying marrow edema. Finding is concerning for osteomyelitis involving the lateral malleolus. No discrete drainable abscess collection is seen. Subtle erosion involving the lateral cortex of lateral malleolus deep to the ulceration. No other area of abnormal marrow signal. 3. Ankle tendons and ligaments are grossly intact. Dictated by: Segundo Garcia M.D. on 09/19/2019 at 16:07 Approved by: Segundo Garcia M.D. on 09/19/2019 at 16:11
== END ==
PROVIDERS: Family Provider Physician Assistant; PCP Physician Assistant; Referring Provider Internal Medicine Infectious Disease; Visit Provider Internal Medicine Infectious Disease
DX: E11.51 Type 2 diabetes mellitus with diabetic peripheral angiopathy without gangrene (principal); E11.43 Type 2 diabetes mellitus with diabetic autonomic (poly)neuropathy; L98.499 Non-pressure chronic ulcer of skin of other sites with unspecified severity; L97.821 Non-pressure chronic ulcer of other part of left lower leg limited to breakdown of skin; L97.324 Non-pressure chronic ulcer of left ankle with necrosis of bone; M87.862 Other osteonecrosis, left tibia; M86.672 Other chronic osteomyelitis, left ankle and foot; L08.9 Local infection of the skin and subcutaneous tissue, unspecified; I87.2 Venous insufficiency (chronic) (peripheral); S81.002A Unspecified open wound, left knee, initial encounter; S81.802A Unspecified open wound, left lower leg, initial encounter; D64.89 Other specified anemias
CPT/HCPCS: 11042; 11043; 11045; 73723; 97605; A9579

== ENCOUNTER → 2019-09-19 15:54 | Outpatient (CLI) | payer MEDICARE, MEDICAID, SELFPAY | PROVIDERS: Family Provider Physician Assistant; PCP Physician Assistant; Referring Provider Physician Assistant; Visit Provider Family Medicine | DX: E11.51 Type 2 diabetes mellitus with diabetic peripheral angiopathy without gangrene (principal); L97.821 Non-pressure chronic ulcer of other part of left lower leg limited to breakdown of skin; L97.324 Non-pressure chronic ulcer of left ankle with necrosis of bone; I87.2 Venous insufficiency (chronic) (peripheral); E11.43 Type 2 diabetes mellitus with diabetic autonomic (poly)neuropathy; S81.002A Unspecified open wound, left knee, initial encounter; S81.802A Unspecified open wound, left lower leg, initial encounter; D64.89 Other specified anemias; M86.672 Other chronic osteomyelitis, left ankle and foot | CPT/HCPCS: 11042; 11043; 11045; 97605; 99214 ==

== ENCOUNTER → 2019-09-26 08:14 | Outpatient (CLI) | payer MEDICARE, MEDICAID, SELFPAY ==
--- NOTE | 2019-09-26 | DI.RAD.S_ITS ---
PROCEDURE: FL GUIDED PICC PLACEMENT INDICATIONS: Osteomyelitis, unspecified COMPARISON: None. FINDINGS: PICC was placed by the intravenous therapy team from the right side. Fluoroscopic spot film demonstrates the tip of PICC projecting to the area of middle 3rd of the SVC IMPRESSION: Tip of PICC projects to the area of the middle 3rd of the SVC. Dictated by: Gerardo Brito M.D. on 09/26/2019 at 9:41 Approved by: Gerardo Brito M.D. on 09/26/2019 at 9:41
[2019-09-26 09:58] LABS: Add Manual Diff / Slide Review NO; Basophils Absolute Auto 100 /uL (0-100); Basophils Percent Auto 0.9 % (0-2); Eosinophils Absolute Auto 100 /uL (0-450); Eosinophils Percent Auto 0.9 % (2-4); Hematocrit 28.9 % (36-46); Hemoglobin 9.2 g/dL (12.0-16.0); Lymphocytes Absolute Auto 1000 /uL (1100-4500); Lymphocytes Percent Auto 15.7 % (25-40); Mean Corpuscular Hemoglobin 28.9 PG (26-34); Mean Corpuscular Volume 90.3 fL (80-100); Monocytes Absolute Auto 700 /uL (0-900); Monocytes Percent Auto 11.4 % (3-14); Neutrophils Absolute Auto 4600 /uL (1500-7000); Neutrophils Percent Auto 71.1 % (50-75); Platelet Count 193 X10^3/uL (150-400); Red Cell Distribution Width 19.9 % (11.6-14.8); White Blood Cell Count 6.5 X10^3/uL (4.5-11.0)
[2019-09-26 10:12] LABS: BUN Creatinine Ratio 25.3 (6-22); Blood Urea Nitrogen 24 mg/dL (7-17); C-Reactive Protein Quant 5.5 mg/dL (<1.0); Calcium 9.3 mg/dL (8.4-10.2); Carbon Dioxide 33 mmol/L (22-32); Chloride 97 mmol/L (98-107); Estimated Glomerular Filt Rate 57.7 mL/min (>60); Glucose 118 mg/dL (80-110); HEMOLYSIS < 15 (0-50); Potassium 4.3 mmol/L (3.4-5.1); Sodium 136 mmol/L (137-145)
[2019-09-26 10:18] LABS: Erythrocyte Sedimentation Rate 34 MM/HR (0-20)
== END ==
PROVIDERS: Family Provider Physician Assistant; PCP Physician Assistant; Referring Provider Internal Medicine Infectious Disease; Visit Provider Internal Medicine Infectious Disease
DX: Z45.2 Encounter for adjustment and management of vascular access device (principal); M86.9 Osteomyelitis, unspecified
CPT/HCPCS: 36573; 80048; 85025; 85651; 86140

== ENCOUNTER → 2019-09-26 11:01 | Outpatient (CLI) | payer MEDICARE, MEDICAID, SELFPAY | PROVIDERS: Family Provider Physician Assistant; PCP Physician Assistant; Referring Provider Physician Assistant; Visit Provider Family Medicine | DX: E11.51 Type 2 diabetes mellitus with diabetic peripheral angiopathy without gangrene (principal); L97.821 Non-pressure chronic ulcer of other part of left lower leg limited to breakdown of skin; L97.324 Non-pressure chronic ulcer of left ankle with necrosis of bone; I87.2 Venous insufficiency (chronic) (peripheral); E11.43 Type 2 diabetes mellitus with diabetic autonomic (poly)neuropathy; S81.002A Unspecified open wound, left knee, initial encounter; S81.802A Unspecified open wound, left lower leg, initial encounter; D64.89 Other specified anemias; M86.672 Other chronic osteomyelitis, left ankle and foot; Z45.2 Encounter for adjustment and management of vascular access device; M86.9 Osteomyelitis, unspecified | CPT/HCPCS: 11042; 36573; 80048; 85025; 85651; 86140; 97597; 97598; 99213 ==

== ENCOUNTER → 2019-10-03 15:13 | Outpatient (CLI) | payer MEDICARE, MEDICAID, SELFPAY | PROVIDERS: Family Provider Physician Assistant; PCP Physician Assistant; Referring Provider Physician Assistant; Visit Provider Family Medicine | DX: E11.51 Type 2 diabetes mellitus with diabetic peripheral angiopathy without gangrene (principal); L97.821 Non-pressure chronic ulcer of other part of left lower leg limited to breakdown of skin; L97.324 Non-pressure chronic ulcer of left ankle with necrosis of bone; I87.2 Venous insufficiency (chronic) (peripheral); E11.43 Type 2 diabetes mellitus with diabetic autonomic (poly)neuropathy; S81.002A Unspecified open wound, left knee, initial encounter; S81.802A Unspecified open wound, left lower leg, initial encounter; D64.89 Other specified anemias; M86.672 Other chronic osteomyelitis, left ankle and foot | CPT/HCPCS: 11042; 97597; 97598; 97605; 99213 ==

== ENCOUNTER → 2019-10-10 13:50 | Outpatient (CLI) | payer MEDICARE, MEDICAID, SELFPAY | PROVIDERS: Family Provider Physician Assistant; PCP Physician Assistant; Referring Provider Physician Assistant; Visit Provider Family Medicine | DX: E11.51 Type 2 diabetes mellitus with diabetic peripheral angiopathy without gangrene (principal); L97.821 Non-pressure chronic ulcer of other part of left lower leg limited to breakdown of skin; L97.324 Non-pressure chronic ulcer of left ankle with necrosis of bone; I87.2 Venous insufficiency (chronic) (peripheral); E11.43 Type 2 diabetes mellitus with diabetic autonomic (poly)neuropathy; S81.002A Unspecified open wound, left knee, initial encounter; S81.802A Unspecified open wound, left lower leg, initial encounter; D64.89 Other specified anemias; M86.672 Other chronic osteomyelitis, left ankle and foot | CPT/HCPCS: 11042; 97597; 97598; 99183; 99213; G0277 ==

== ENCOUNTER → 2019-10-11 14:08 | Outpatient (CLI) | payer MEDICARE, MEDICAID, SELFPAY | PROVIDERS: Family Provider Physician Assistant; PCP Physician Assistant; Referring Provider Physician Assistant; Visit Provider Family Medicine | DX: E11.51 Type 2 diabetes mellitus with diabetic peripheral angiopathy without gangrene (principal); L97.821 Non-pressure chronic ulcer of other part of left lower leg limited to breakdown of skin; L97.324 Non-pressure chronic ulcer of left ankle with necrosis of bone; I87.2 Venous insufficiency (chronic) (peripheral); E11.43 Type 2 diabetes mellitus with diabetic autonomic (poly)neuropathy; S81.002A Unspecified open wound, left knee, initial encounter; S81.802A Unspecified open wound, left lower leg, initial encounter; D64.89 Other specified anemias; M86.672 Other chronic osteomyelitis, left ankle and foot | CPT/HCPCS: 99183; G0277 ==

== ENCOUNTER → 2019-10-13 13:28 | Outpatient (CLI) | payer MEDICARE, MEDICAID, SELFPAY | PROVIDERS: Family Provider Physician Assistant; PCP Physician Assistant; Referring Provider Physician Assistant; Visit Provider Family Medicine | DX: E11.51 Type 2 diabetes mellitus with diabetic peripheral angiopathy without gangrene (principal); L97.821 Non-pressure chronic ulcer of other part of left lower leg limited to breakdown of skin; L97.324 Non-pressure chronic ulcer of left ankle with necrosis of bone; I87.2 Venous insufficiency (chronic) (peripheral); E11.43 Type 2 diabetes mellitus with diabetic autonomic (poly)neuropathy; S81.002A Unspecified open wound, left knee, initial encounter; S81.802A Unspecified open wound, left lower leg, initial encounter; D64.89 Other specified anemias; M86.672 Other chronic osteomyelitis, left ankle and foot | CPT/HCPCS: 99183; G0277 ==

== ENCOUNTER → 2019-10-18 13:06 | Outpatient (CLI) | payer MEDICARE, MEDICAID, SELFPAY | PROVIDERS: Family Provider Physician Assistant; PCP Physician Assistant; Referring Provider Physician Assistant; Visit Provider Family Medicine | DX: E11.51 Type 2 diabetes mellitus with diabetic peripheral angiopathy without gangrene (principal); L97.821 Non-pressure chronic ulcer of other part of left lower leg limited to breakdown of skin; L97.324 Non-pressure chronic ulcer of left ankle with necrosis of bone; I87.2 Venous insufficiency (chronic) (peripheral); E11.43 Type 2 diabetes mellitus with diabetic autonomic (poly)neuropathy; S81.002A Unspecified open wound, left knee, initial encounter; S81.802A Unspecified open wound, left lower leg, initial encounter; D64.89 Other specified anemias; M86.672 Other chronic osteomyelitis, left ankle and foot | CPT/HCPCS: 87070; 87075; 87205; 97597; 99183; 99214; G0277 ==

== ENCOUNTER → 2019-10-19 09:43 | Outpatient (CLI) | payer MEDICARE, MEDICAID, SELFPAY | PROVIDERS: Family Provider Physician Assistant; PCP Physician Assistant; Referring Provider Physician Assistant; Visit Provider Family Medicine | DX: E11.51 Type 2 diabetes mellitus with diabetic peripheral angiopathy without gangrene (principal); L97.821 Non-pressure chronic ulcer of other part of left lower leg limited to breakdown of skin; L97.324 Non-pressure chronic ulcer of left ankle with necrosis of bone; I87.2 Venous insufficiency (chronic) (peripheral); E11.43 Type 2 diabetes mellitus with diabetic autonomic (poly)neuropathy; S81.002A Unspecified open wound, left knee, initial encounter; S81.802A Unspecified open wound, left lower leg, initial encounter; D64.89 Other specified anemias; M86.672 Other chronic osteomyelitis, left ankle and foot | CPT/HCPCS: 99183; G0277 ==

== ENCOUNTER → 2019-10-20 13:55 | Outpatient (CLI) | payer MEDICARE, MEDICAID, SELFPAY | PROVIDERS: Family Provider Physician Assistant; PCP Physician Assistant; Referring Provider Physician Assistant; Visit Provider Family Medicine | DX: E11.622 Type 2 diabetes mellitus with other skin ulcer (principal); L97.822 Non-pressure chronic ulcer of other part of left lower leg with fat layer exposed; L97.324 Non-pressure chronic ulcer of left ankle with necrosis of bone; T81.31XA Disruption of external operation (surgical) wound, not elsewhere classified, initial encounter; S81.802A Unspecified open wound, left lower leg, initial encounter; E11.51 Type 2 diabetes mellitus with diabetic peripheral angiopathy without gangrene; L97.821 Non-pressure chronic ulcer of other part of left lower leg limited to breakdown of skin; I87.2 Venous insufficiency (chronic) (peripheral); E11.43 Type 2 diabetes mellitus with diabetic autonomic (poly)neuropathy; S81.002A Unspecified open wound, left knee, initial encounter; D64.89 Other specified anemias; M86.672 Other chronic osteomyelitis, left ankle and foot | CPT/HCPCS: 99183; 99213; G0277 ==

== ENCOUNTER 2019-10-24 12:40 | Inpatient (IN) | payer MEDICARE, MEDICAID, SELFPAY ==
[2019-10-24] VITALS (32 sets, daily range): BP systolic 106–154; BP diastolic 65–98; PULSE 98–156; RESP 16–32; TEMP 36.4–36.9; O2SAT 92–100; BMI 32.0
--- NOTE | 2019-10-24 12:44 | DI.US.S_ITS ---
PROCEDURE: US PERIPH VENOUS UP EXTREM LT INDICATIONS: SWELLING TECHNIQUE: Real-time imaging, as well as color and pulse Doppler interrogation, was performed of the left upper extremity deep veins from the inferior neck to the antecubital fossa. COMPARISON: None. FINDINGS: The internal jugular vein, visualized portions of the subclavian vein, axillary, and brachial veins are free of intraluminal thrombus. Where physically possible, the veins are normally compressible. Color and pulse Doppler demonstrate normal intraluminal flow, with expected phasicity and pulsatility. Additional scanning of the cephalic and basilic veins of the superficial system demonstrate normal compressibility, without thrombus. Subcutaneous edema is present. IMPRESSION: No left upper extremity DVT. Dictated by: Michael Canchola M.D. on 10/24/2019 at 13:54 Approved by: Michael Canchola M.D. on 10/24/2019 at 13:58
[2019-10-24] MEDS: FUROSEMIDE 40 MG/4 ML VIAL IV (13:01)
--- NOTE | 2019-10-24 13:01 | ED.WEAKNESS ---
HPI - Weakness General Chief complaint: Shortness of Breath/Dyspnea Stated complaint: weakness, edema Time Seen by Provider: 10/24/19 12:43 Source: patient and EMS Mode of arrival: EMS Limitations: no limitations History of Present Illness HPI Narrative: Patient is a 73-year-old female with history of AFib, peripheral vascular disease, diabetes hypertension hyperlipidemia with chronic ongoing source of her legs on IV antibiotics since August 14 presenting today with generalized weakness. She is followed closely with wound care and was supposed to get blood work done yesterday however over the last 3 days she has been continuously week. She feels like she has swelling in all of her extremities arms legs and abdomen. She denies any shortness of breath orthopnea she has no chest pain fever or cough. She is noted to be in AFib with RVR with heart rate in 140. MD Complaint: generalized weakness Related Data Home Medications Medication Instructions Recorded Confirmed alendronate 70 mg PO QWEEK 10/24/19 10/24/19 amlodipine 5 mg PO DAILY 10/24/19 10/24/19 ampicillin-sulbactam 12 g IV DAILY 10/24/19 10/24/19 ascorbic acid (vitamin C) 500 mg PO DAILY 10/24/19 10/24/19 aspirin [Adult Low Dose Aspirin] 81 mg PO DAILY 10/24/19 10/24/19 cholecalciferol (vitamin D3) 25 mcg PO DAILY 10/24/19 10/24/19 [Vitamin D3] clonidine HCl 0.1 mg PO BID 10/24/19 10/24/19 diltiazem HCl 120 mg PO DAILY 10/24/19 10/24/19 furosemide 40 mg PO QAM 10/24/19 10/24/19 gabapentin 900 mg PO Q8HR 10/24/19 10/24/19 losartan 100 mg PO DAILY 10/24/19 10/24/19 metformin 500 mg PO BID 10/24/19 10/24/19 metoprolol tartrate 50 mg PO BID 10/24/19 10/24/19 mupirocin calcium 1 applic TOPICAL DAILY 10/24/19 10/24/19 oxybutynin chloride 5 mg PO DAILY 10/24/19 10/24/19 oxycodone 5 mg PO QID PRN 10/24/19 10/24/19 pantoprazole 40 mg PO BID 10/24/19 10/24/19 potassium chloride 20 meq PO QAM 10/24/19 10/24/19 sucralfate 10 ml PO QID 10/24/19 10/24/19 zinc 50 mg PO DAILY 10/24/19 10/24/19 Allergies Allergy/AdvReac Type Severity Reaction Status Date / Time No Known Allergies Allergy Verified 10/24/19 12:49 Review of Systems Review of Systems ROS Unobtainable: All systems reviewed & are unremarkable except as noted in HPI and below Constitutional Constitutional: Denies body ache(s), Denies chills, Denies increased appetite and Reports poor appetite Eyes Eyes: Denies change in vision, Denies eye discharge, Denies irritation and Denies loss of vision ENT Ears, Nose, Mouth, and Throat: Denies dizziness Cardiovascular Cardiovascular: Denies chest pain, Reports rapid heart rate, Reports irregular heart rhythm, Reports leg ulcers, Reports leg edema, Denies lightheadedness, Denies palpitations, Denies dyspnea, Denies dyspnea on exertion and Denies orthopnea Respiratory Respiratory: Denies cough, Denies dyspnea, Denies dyspnea on exertion and Denies wheezing Gastrointestinal Gastrointestinal: Denies abdominal pain, Denies change in bowel habits, Denies diarrhea, Denies nausea and Denies vomiting Musculoskeletal Musculoskeletal: Denies arthralgias and Denies back pain Integumentary/Breasts Skin/Breast: Reports as per HPI Neurologic Neurologic: Denies confusion, Denies dizziness and Denies loss of vision Psychiatric Psychiatric: Denies confusion Endocrine Endocrine: Denies palpitations Allergic/Immunologic Allergic/Immunologic: Denies wheezing Patient History Social History household members: children Smoking Status: Former smoker alcohol intake: current Exam Initial Vital Signs Initial Vital Signs: Vital Signs Temperature 98.3 F 10/24/19 12:37 Pulse Rate 141 H 10/24/19 12:37 Respiratory Rate 30 H 10/24/19 12:37 Blood Pressure 125/94 H 10/24/19 12:37 Pulse Oximetry 92 10/24/19 12:37 GENERAL: Chronically ill elderly female no acute distress and in no acute distress. HEENT: Head atraumatic,EOMI, pupils reactive, face symmetric, moist mucous membranes CARDIOVASCULAR: Irregularly irregular RESPIRATORY: Breath sounds equal bilaterally, no wheezes rales or rhonchi. ABDOMEN: Soft, nontender. Normoactive bowel sounds all 4 quadrants. No guarding or rebound. EXTREMITIES: Normal range of motion, no clubbing or edema. Neurovascularly intact. Left upper extremity swelling noted no right arm swelling, bilateral lower extremity pitting edema NEUROLOGICAL: Alert and oriented x4.Normal gait and speech. Cranial nerves II through XII grossly intact. SKIN: Chronic wounds noted in lower extremities dressings in place no significant surrounding erythema Course Orders Ordered: ED Orders 10/24/19 12:44 Consult to Respiratory Therapy Evaluate & Treat US periph venous up extrem lt Stat EKG-12 Lead Stat 10/24/19 12:50 Blood Culture Stat Complete Blood Count AUTO DIFF Stat Comprehensive Metabolic Panel Stat Lactate (Lactic Acid) Stat Magnesium Stat NT-proBNP (BNP-Adult 18+) Stat Partial Thromboplastin Time Stat Procalcitonin Stat Prothrombin Time INR Stat Thyroid Stimulating Hormone Stat Troponin & CK Cardiac Panel Stat 10/24/19 13:12 Urinalysis and Microscopic Stat Urine Culture Stat 10/24/19 13:59 XR chest 1V Stat 10/24/19 14:53 CT angio chest abdomen pelvis Stat Apixaban (Eliquis) 5 mg PO BID VISHNU Med Stored In (Pharmacy Fridge) 0 each PO PRN PRN PRN Reason: MED STORED IN PHARMACY FRIDGE Oxycodone HCl (Percolone) 5 mg PO QID PRN PRN Reason: Pain, Moderate (4-6) Last Admin: 10/24/19 18:48 Dose: 5 mg Documented by: JENNA Discontinued Medications Diltiazem HCl (Cardizem) 10 mg IV NOW ONE Stop: 10/24/19 13:01 Last Admin: 10/24/19 13:22 Dose: 10 mg Documented by: ARACELIS Diltiazem HCl (Cardizem) 10 mg IV NOW ONE Stop: 10/24/19 16:02 Last Admin: 10/24/19 16:43 Dose: 10 mg Documented by: JASPAL Furosemide (Lasix) 40 mg IV NOW ONE Stop: 10/24/19 12:45 Last Admin: 10/24/19 13:01 Dose: 40 mg Documented by: BECKY Metoprolol Tartrate (Lopressor) 50 mg PO NOW ONE Stop: 10/24/19 16:02 Last Admin: 10/24/19 16:45 Dose: 50 mg Documented by: JASPAL Consultations Consultation #1: Dr. Ramsay, vascular surgeon at [place] look at most recent CT at [place] he states that aneurysm is well known and stable at this time. Time: 15:52 Vital Signs Vital signs: Vital Signs - 8 hr 10/24/19 12:37 10/24/19 12:50 10/24/19 12:54 Temperature 98.3 F Pulse Rate 141 H 141 H 138 H Respiratory Rate 30 H 32 H 24 Blood Pressure 125/94 H Pulse Oximetry 92 92 97 10/24/19 13:00 10/24/19 13:15 10/24/19 13:21 Temperature Pulse Rate 146 H 155 H Respiratory Rate 20 19 Blood Pressure 139/98 H 139/84 Pulse Oximetry 99 99 10/24/19 13:22 10/24/19 13:30 10/24/19 13:45 Temperature Pulse Rate 156 H 126 H 140 H Respiratory Rate 24 24 Blood Pressure 139/84 145/86 H 106/87 Pulse Oximetry 99 97 10/24/19 14:00 10/24/19 14:15 10/24/19 14:30 Temperature Pulse Rate 140 H 132 H 140 H Respiratory Rate 31 H 25 H 16 Blood Pressure 117/81 119/91 H Pulse Oximetry 98 99 100 10/24/19 14:45 10/24/19 15:11 10/24/19 15:12 Temperature Pulse Rate 134 H 120 H 138 H Respiratory Rate 21 24 Blood Pressure 130/95 H 135/92 H Pulse Oximetry 99 97 98 10/24/19 15:14 10/24/19 15:15 10/24/19 15:30 Temperature Pulse Rate 153 H 136 H 139 H Respiratory Rate 22 21 21 Blood Pressure 130/69 Pulse Oximetry 98 98 98 10/24/19 15:45 10/24/19 16:00 Temperature Pulse Rate 136 H 152 H Respiratory Rate 21 24 Blood Pressure Pulse Oximetry 98 98 MDM - Weakness Lab Data Attestation: I reviewed the patient's lab results. Result diagrams: 10/24/19 12:50 10/24/19 12:50 Labs: Lab Results 10/24/19 10/24/19 10/24/19 Range/Units 12:50 12:50 12:50 WBC 5.0 (4.5-11.0) X10^3/uL RBC 3.52 L (4.0-5.2) X10^6/uL Hgb 9.7 L (12.0-16.0) g/dL Hct 30.9 L (36-46) % MCV 87.9 (80-100) fL MCH 27.6 (26-34) PG MCHC 31.4 (30-36) % RDW 19.6 H (11.6-14.8) % Plt Count 109 L (150-400) X10^3/uL Neut % (Auto) 69.6 (50-75) % Lymph % (Auto) 17.6 L (25-40) % [place] % (Auto) 11.9 (3-14) % Eos % (Auto) 0.4 L (2-4) % Baso % (Auto) 0.5 (0-2) % Neut # (Auto) 3500 (0289-6608) /uL Lymph # (Auto) 900 L (7475-4730) /uL [place] # (Auto) 600 (0-900) /uL Eos # (Auto) 0 (0-450) /uL Baso # (Auto) 0 (0-100) /uL PT 14.6 H (10.1-12.7) SECONDS INR 1.3 (0.9-1.3) APTT 26 L (26.4-36.2) SECONDS Sodium (137-145) mmol/L Potassium (3.4-5.1) mmol/L Chloride (98-107) mmol/L Carbon Dioxide (22-32) mmol/L BUN (7-17) mg/dL Creatinine (0.52-1.04) mg/dL Estimated GFR (>60) mL/min BUN/Creatinine Ratio (6-22) Glucose (80-110) mg/dL Lactate (0.7-2.1) mmol/L Calcium (8.4-10.2) mg/dL Magnesium 2.0 (1.6-2.3) mg/dL Total Bilirubin (0.2-1.3) mg/dL AST (14-36) IU/L ALT (<35) IU/L Alkaline Phosphatase (38-126) U/L Total Creatine Kinase 46 (30-135) U/L CK-MB (CK-2) TNP CK-MB (CK-2) Rel Index TNP Troponin I 0.034 (0.01-0.034) ng/mL NT-Pro-B Natriuret Pep 6430 H (<125) pg/mL Total Protein (6.3-8.2) g/dL Albumin (3.5-5.0) g/dL Globulin (1.7-4.1) g/dL Albumin/Globulin Ratio (1.0-2.8) Procalcitonin (<0.5) ng/mL TSH (0.47-4.68) uIU/mL Free T4 (0.78-2.19) ng/dL Urine Color Urine Appearance Urine pH (4.5-8.0) Ur Specific [place] (1.000-1.035) Urine Protein (Negative) Urine Glucose (UA) (Negative) g/dL Urine Ketones (NEGATIVE) Urine Occult Blood (Negative) Urine Nitrate (Negative) Urine Bilirubin (NEGATIVE) Urine Urobilinogen (0.2) E.U./dL Ur Leukocyte Esterase (NEGATIVE) Urine RBC (0-5/HPF) Urine WBC (0-5/HPF) Urine Bacteria (None) Urine Yeast (None) Ur Culture Indicated? COVID-19 PCR 10/24/19 10/24/19 10/24/19 Range/Units 12:50 12:50 12:50 WBC (4.5-11.0) X10^3/uL RBC (4.0-5.2) X10^6/uL Hgb (12.0-16.0) g/dL Hct (36-46) % MCV (80-100) fL MCH (26-34) PG MCHC (30-36) % RDW (11.6-14.8) % Plt Count (150-400) X10^3/uL Neut % (Auto) (50-75) % Lymph % (Auto) (25-40) % [place] % (Auto) (3-14) % Eos % (Auto) (2-4) % Baso % (Auto) (0-2) % Neut # (Auto) (3129-0567) /uL Lymph # (Auto) (1562-8856) /uL [place] # (Auto) (0-900) /uL Eos # (Auto) (0-450) /uL Baso # (Auto) (0-100) /uL PT (10.1-12.7) SECONDS INR (0.9-1.3) APTT (26.4-36.2) SECONDS Sodium 139 (137-145) mmol/L Potassium 4.2 (3.4-5.1) mmol/L Chloride 102 (98-107) mmol/L Carbon Dioxide 28 (22-32) mmol/L BUN 36 H (7-17) mg/dL Creatinine 1.35 H (0.52-1.04) mg/dL Estimated GFR 38.4 L (>60) mL/min BUN/Creatinine Ratio 26.7 H (6-22) Glucose 143 H (80-110) mg/dL Lactate 2.0 (0.7-2.1) mmol/L Calcium 8.7 (8.4-10.2) mg/dL Magnesium (1.6-2.3) mg/dL Total Bilirubin 0.9 (0.2-1.3) mg/dL AST 23 (14-36) IU/L ALT 7 (<35) IU/L Alkaline Phosphatase 77 (38-126) U/L Total Creatine Kinase (30-135) U/L CK-MB (CK-2) CK-MB (CK-2) Rel Index Troponin I (0.01-0.034) ng/mL NT-Pro-B Natriuret Pep (<125) pg/mL Total Protein 6.0 L (6.3-8.2) g/dL Albumin 3.1 L (3.5-5.0) g/dL Globulin 2.9 (1.7-4.1) g/dL Albumin/Globulin Ratio 1.1 (1.0-2.8) Procalcitonin 0.06 (<0.5) ng/mL TSH (0.47-4.68) uIU/mL Free T4 (0.78-2.19) ng/dL Urine Color Urine Appearance Urine pH (4.5-8.0) Ur Specific [place] (1.000-1.035) Urine Protein (Negative) Urine Glucose (UA) (Negative) g/dL Urine Ketones (NEGATIVE) Urine Occult Blood (Negative) Urine Nitrate (Negative) Urine Bilirubin (NEGATIVE) Urine Urobilinogen (0.2) E.U./dL Ur Leukocyte Esterase (NEGATIVE) Urine RBC (0-5/HPF) Urine WBC (0-5/HPF) Urine Bacteria (None) Urine Yeast (None) Ur Culture Indicated? COVID-19 PCR 10/24/19 10/24/19 10/24/19 Range/Units 12:50 12:50 13:12 WBC (4.5-11.0) X10^3/uL RBC (4.0-5.2) X10^6/uL Hgb (12.0-16.0) g/dL Hct (36-46) % MCV (80-100) fL MCH (26-34) PG MCHC (30-36) % RDW (11.6-14.8) % Plt Count (150-400) X10^3/uL Neut % (Auto) (50-75) % Lymph % (Auto) (25-40) % [place] % (Auto) (3-14) % Eos % (Auto) (2-4) % Baso % (Auto) (0-2) % Neut # (Auto) (5141-4150) /uL Lymph # (Auto) (4979-8430) /uL [place] # (Auto) (0-900) /uL Eos # (Auto) (0-450) /uL Baso # (Auto) (0-100) /uL PT (10.1-12.7) SECONDS INR (0.9-1.3) APTT (26.4-36.2) SECONDS Sodium (137-145) mmol/L Potassium (3.4-5.1) mmol/L Chloride (98-107) mmol/L Carbon Dioxide (22-32) mmol/L BUN (7-17) mg/dL Creatinine (0.52-1.04) mg/dL Estimated GFR (>60) mL/min BUN/Creatinine Ratio (6-22) Glucose (80-110) mg/dL Lactate (0.7-2.1) mmol/L Calcium (8.4-10.2) mg/dL Magnesium (1.6-2.3) mg/dL Total Bilirubin (0.2-1.3) mg/dL AST (14-36) IU/L ALT (<35) IU/L Alkaline Phosphatase (38-126) U/L Total Creatine Kinase (30-135) U/L CK-MB (CK-2) CK-MB (CK-2) Rel Index Troponin I (0.01-0.034) ng/mL NT-Pro-B Natriuret Pep (<125) pg/mL Total Protein (6.3-8.2) g/dL Albumin (3.5-5.0) g/dL Globulin (1.7-4.1) g/dL Albumin/Globulin Ratio (1.0-2.8) Procalcitonin (<0.5) ng/mL TSH 6.41 H (0.47-4.68) uIU/mL Free T4 1.09 (0.78-2.19) ng/dL Urine Color Yellow Urine Appearance Sl cloudy Urine pH 5.0 (4.5-8.0) Ur Specific [place] 1.015 (1.000-1.035) Urine Protein Trace H (Negative) Urine Glucose (UA) Negative (Negative) g/dL Urine Ketones Trace H (NEGATIVE) Urine Occult Blood Negative (Negative) Urine Nitrate Negative (Negative) Urine Bilirubin Negative (NEGATIVE) Urine Urobilinogen 0.2 (0.2) E.U./dL Ur Leukocyte Esterase Trace H (NEGATIVE) Urine RBC None seen (0-5/HPF) Urine WBC 5-10/hpf H (0-5/HPF) Urine Bacteria Occasional (0-1) (None) Urine Yeast 5-10/hpf H (None) Ur Culture Indicated? Specimen cultured COVID-19 PCR 10/24/19 10/24/19 Range/Units 14:50 15:40 WBC (4.5-11.0) X10^3/uL RBC (4.0-5.2) X10^6/uL Hgb (12.0-16.0) g/dL Hct (36-46) % MCV (80-100) fL MCH (26-34) PG MCHC (30-36) % RDW (11.6-14.8) % Plt Count (150-400) X10^3/uL Neut % (Auto) (50-75) % Lymph % (Auto) (25-40) % [place] % (Auto) (3-14) % Eos % (Auto) (2-4) % Baso % (Auto) (0-2) % Neut # (Auto) (1638-9285) /uL Lymph # (Auto) (0593-2916) /uL [place] # (Auto) (0-900) /uL Eos # (Auto) (0-450) /uL Baso # (Auto) (0-100) /uL PT (10.1-12.7) SECONDS INR (0.9-1.3) APTT (26.4-36.2) SECONDS Sodium (137-145) mmol/L Potassium (3.4-5.1) mmol/L Chloride (98-107) mmol/L Carbon Dioxide (22-32) mmol/L BUN (7-17) mg/dL Creatinine (0.52-1.04) mg/dL Estimated GFR (>60) mL/min BUN/Creatinine Ratio (6-22) Glucose (80-110) mg/dL Lactate (0.7-2.1) mmol/L Calcium (8.4-10.2) mg/dL Magnesium (1.6-2.3) mg/dL Total Bilirubin (0.2-1.3) mg/dL AST (14-36) IU/L ALT (<35) IU/L Alkaline Phosphatase (38-126) U/L Total Creatine Kinase (30-135) U/L CK-MB (CK-2) CK-MB (CK-2) Rel Index Troponin I (0.01-0.034) ng/mL NT-Pro-B Natriuret Pep (<125) pg/mL Total Protein (6.3-8.2) g/dL Albumin (3.5-5.0) g/dL Globulin (1.7-4.1) g/dL Albumin/Globulin Ratio (1.0-2.8) Procalcitonin (<0.5) ng/mL TSH (0.47-4.68) uIU/mL Free T4 (0.78-2.19) ng/dL Urine Color Urine Appearance Urine pH (4.5-8.0) Ur Specific [place] (1.000-1.035) Urine Protein (Negative) Urine Glucose (UA) (Negative) g/dL Urine Ketones (NEGATIVE) Urine Occult Blood (Negative) Urine Nitrate (Negative) Urine Bilirubin (NEGATIVE) Urine Urobilinogen (0.2) E.U./dL Ur Leukocyte Esterase (NEGATIVE) Urine RBC (0-5/HPF) Urine WBC (0-5/HPF) Urine Bacteria (None) Urine Yeast (None) Ur Culture Indicated? COVID-19 PCR Cancelled Negative Imaging Data US - DVT: Radiologist Impression: PROCEDURE: US PERIPH VENOUS UP EXTREM LT INDICATIONS: SWELLING TECHNIQUE: Real-time imaging, as well as color and pulse Doppler interrogation, was performed of the left upper extremity deep veins from the inferior neck to the antecubital fossa. COMPARISON: None. FINDINGS: The internal jugular vein, visualized portions of the subclavian vein, axillary, and brachial veins are free of intraluminal thrombus. Where physically possible, the veins are normally compressible. Color and pulse Doppler demonstrate normal intraluminal flow, with expected phasicity and pulsatility. Additional scanning of the cephalic and basilic veins of the superficial system demonstrate normal compressibility, without thrombus. Subcutaneous edema is present. IMPRESSION: No left upper extremity DVT. Dictated by: Michael Canchola M.D. on 10/24/2019 at 13:54 Approved by: Michael Canchola M.D. on 10/24/2019 at 13:58 Chest x-ray: Radiologist Impression: PROCEDURE: XR CHEST 1V INDICATIONS: Shortness of breath TECHNIQUE: One view of the chest was acquired. COMPARISON: [place], [place] PICC W FLUOROGUIDE, 09/26/2019, 8:12. FINDINGS: Surgical changes and devices: Right upper extremity PICC in unchanged position. Lungs and pleura: Left-sided pleural effusion with overlying atelectasis/consolidation. Bibasilar airspace opacities. Mildly coarsened interstitial markings bilaterally. No pleural effusions or pneumothorax. Mediastinum: Ectatic/aneurysmal ascending thoracic aorta and aortic arch with atherosclerosis. This is not significantly changed from comparison fluoroscopic images for obtained September 2019. Mediastinal contours otherwise normal. Heart size at the upper limits of normal. Bones and chest wall: No suspicious bony lesions. Overlying soft tissues appear unremarkable. IMPRESSION: Left pleural effusion. Bibasilar consolidative airspace disease. Findings may represent cardiogenic pulmonary edema or infectious process. Correlate with CBC findings and BNP. Enlargement of the ascending thoracic aorta with atherosclerosis similar to the comparison study. Unchanged right upper extremity PICC position. Dictated by: Adriano Damico M.D. on 10/24/2019 at 14:30 Approved by: Adriano Damico M.D. on 10/24/2019 at 14:32 CT scan - abdomen/pelvis: Radiologist Impression: PROCEDURE: CT ANGIO CHEST ABDOMEN PELVIS INDICATIONS: Short of breath and aneurysm TECHNIQUE: Precontrast 5 mm thick sections acquired from the lung apices to the iliac crests. After the administration of intravenous contrast, 2.5 mm thick sections again acquired from the lung apices to the iliac crests. Maximum intensity projection (MIP) oblique sagittal and coronal reformats were then acquired. For radiation dose reduction, the following was used: automated exposure control. COMPARISON: [facility], CT, CT ABDOMEN WO/W CON, 12/28/2018, 9:47. FINDINGS: Image quality: Excellent. AORTA: Intramural hematoma: Absent Maximum hematoma thickness: Not applicable Focal contrast enhancement: Intramural blood pool (< 2 mm neck or imperceptible communication with aortic lumen): Absent Ulcer-like projection (broad communication with aortic lumen > 3 mm): Absent . Dissection: Absent [place] classification: Not applicable Maximum aortic diameter: 6.4 cm, at the aortic arch. Periaortic hematoma: Absent . CHEST: Lungs and pleura: No acute airspace opacities except for atelectasis adjacent to bilateral small to moderate pleural effusions and what likely is a small degree of pulmonary edema. No pneumothorax. Central and peripheral airways are patent and normal in caliber. Mediastinum: Heart size is globally enlarged, previously the case also to a lesser degree. No pericardial effusion. No mediastinal or hilar adenopathy by size criteria. Central pulmonary arteries are normal in size. Esophagus is normal in caliber. No hiatal hernias. There is evidence of right heart insufficiency given reflux of contrast into the IVC and hepatic veins. Bones and chest wall: No axillary adenopathy by size criteria. Thyroid gland is not well seen. No suspicious bony lesions. No vertebral body compression fractures. ABDOMEN: Vasculature: At the abdomen/pelvis junction there are several thin faint strands within the aortic lumen, best seen centered on series 4, image 78, with an appearance unlikely to represent a true dissection but potentially fibrin stranding within the aortic lumen. Aneurysmal dilatation to an equivalent degree to that previously present on CT scanning from December of last year is again noted. Maximal aortic transverse dimension is 5.1 cm. Celiac trunk and mesenteric arteries are patent. Renal arteries are also patent. Solid organs: Liver is normal in size and enhancement. Gallbladder is not seen . Biliary system is non dilated. Pancreas enhances normally. Spleen is normal in size and enhancement. No adrenal nodules. Both kidneys are normal in size and enhancement, without hydronephrosis. Peritoneum and bowel: No free fluid or air. Bowel loops are normal in caliber and wall thickness. Nodes and vessels: No retroperitoneal or mesenteric adenopathy by size criteria. Inferior vena cava is normal in morphology. Miscellaneous: No ventral hernias. There is generalized anasarca, and mild ascites. This was not previously present. PELVIS: Genitourinary: Bladder wall thickness is normal. Miscellaneous: No inguinal hernias or adenopathy. No ventral hernias. Generalized anasarca and mild ascites is seen as was the case within the abdomen. A left external iliac artery graft/stent appears patent Bones: No suspicious bony lesions. No vertebral body compression fractures. IMPRESSION: 1. Significant interval worsening of fluid status is present now with generalized anasarca, bilateral pleural effusions, and ascites. The pleural effusions are moderate, the anasarca is moderately severe, the ascites is mild. Cardiomegaly has advanced, and mild pulmonary edema appears present in addition to atelectasis from adjacent pleural effusions. Overall there appears to be an exacerbation of chronic CHF. 2. Aneurysmal dilatation has been extensive in this patient, but has not definitely worsened over time. There are several thin strands of low-attenuation within the chest/abdomen junction of the dilated aorta, but the appearance is most likely a manifestation of fibrin stranding rather than dissection by appearance. Note: Findings discussed in detail with the emergency room physician caring the patient. Dictated by: Gerardo Brito M.D. on 10/24/2019 at 15:14 Approved by: Gerardo Brito M.D. on 10/24/2019 at 15:44 ECG Data Attestation: I personally reviewed and interpreted this ECG as follows: Prior ECG tracings: not available for review Interpretation: Atrial fibrillation rate [address] changes MDM Narrative Medical decision making narrative: Patient has significant edema in her left upper extremity but her right upper extremity but ultrasound is negative for DVT. In elevated BNP and congestive heart failure signs on both x-ray and CT. She is found to have a stable aneurysm concerned with her vascular surgeon at [place]. Lower extremities have chronic wounds which are currently dressed, there does not appear to be any occult infection. She is also continuing to get home the Unasyn via her PICC line and is actually in infusion now. The patient did respond to 10 mg of Cardizem however heart rate who quickly increased again. She says she did take her few min home medications this morning she is given a 2nd dose of Cardizem and another dose of oral metoprolol. Dr. hough hospitalist has been updated on patient's symptoms test results and agrees with admission Discharge Plan Departure Patient Disposition: Admitted As Inpatient Clinical Impression: Atrial fibrillation with rapid ventricular response CHF (congestive heart failure) Qualifiers: Heart failure type: unspecified Heart failure chronicity: unspecified Qualified Code(s): I50.9 - Heart failure, unspecified Discharge Date/Time: 10/24/19 17:37 Admit Date/Time: 10/24/19 16:14 Admit Provider: Moriah Hough
[2019-10-24 13:11] LABS: Add Manual Diff / Slide Review NO; Basophils Absolute Auto 0 /uL (0-100); Basophils Percent Auto 0.5 % (0-2); Eosinophils Absolute Auto 0 /uL (0-450); Eosinophils Percent Auto 0.4 % (2-4); Hematocrit 30.9 % (36-46); Hemoglobin 9.7 g/dL (12.0-16.0); Lymphocytes Absolute Auto 900 /uL (1100-4500); Lymphocytes Percent Auto 17.6 % (25-40); Mean Corpuscular HGB Conc 31.4 % (30-36); Mean Corpuscular Hemoglobin 27.6 PG (26-34); Mean Corpuscular Volume 87.9 fL (80-100); Monocytes Absolute Auto 600 /uL (0-900); Monocytes Percent Auto 11.9 % (3-14); Neutrophils Absolute Auto 3500 /uL (1500-7000); Neutrophils Percent Auto 69.6 % (50-75); Platelet Count 109 X10^3/uL (150-400); Red Blood Cell Count 3.52 X10^6/uL (4.0-5.2); Red Cell Distribution Width 19.6 % (11.6-14.8)
[2019-10-24] MEDS: dilTIAZem 5 MG/ML SDV 10 MG IV ×2 (13:22→16:43)
[2019-10-24 13:27] LABS: INR 1.3 (0.9-1.3); Prothrombin Time 14.6 SECONDS (10.1-12.7)
[2019-10-24 13:29] LABS: PTT Partial Thromboplastin Tim 26 SECONDS (26.4-36.2)
[2019-10-24 13:30] LABS: Creatine Kinase 46 U/L (30-135)
[2019-10-24 13:31] LABS: Alanine Aminotransferase 7 IU/L (<35); Albumin 3.1 g/dL (3.5-5.0); Albumin Globulin Ratio 1.1 (1.0-2.8); Alkaline Phosphatase 77 U/L (38-126); Aspartate Aminotransferase 23 IU/L (14-36); BUN Creatinine Ratio 26.7 (6-22); Bilirubin Total 0.9 mg/dL (0.2-1.3); Blood Urea Nitrogen 36 mg/dL (7-17); Calcium 8.7 mg/dL (8.4-10.2); Carbon Dioxide 28 mmol/L (22-32); Chloride 102 mmol/L (98-107); Estimated Glomerular Filt Rate 38.4 mL/min (>60); Globulin 2.9 g/dL (1.7-4.1); Glucose 143 mg/dL (80-110); HEMOLYSIS < 15 (0-50); Potassium 4.2 mmol/L (3.4-5.1); Sodium 139 mmol/L (137-145)
[2019-10-24 13:31] LABS: RBC Urine None Seen (0-5/HPF)
[2019-10-24 13:35] LABS: Appearance Urine UA SL CLOUDY; Bilirubin Urine UA NEGATIVE (NEGATIVE); Color Urine UA YELLOW; Glucose Urine UA NEGATIVE (Negative); Ketones Urine UA TRACE (NEGATIVE); Leukocyte Esterase Urine UA TRACE (NEGATIVE); Nitrite Urine UA NEGATIVE (Negative); Occult Blood Urine UA NEGATIVE (Negative); Protein Urine UA TRACE (Negative); Specific Gravity Urine UA 1.015 (1.000-1.035); Urobilinogen Urine UA 0.2 E.U./dL (0.2)
[2019-10-24 13:42] LABS: NT-proBNP (BNP-Adult 18+) 6430 pg/mL (<125); Troponin I 0.034 ng/mL (0.01-0.034)
[2019-10-24 13:49] LABS: Bacteria Urine Occasional (0-1); Culture Indicated Urine Specimen Cultured; WBC Urine 5-10/HPF (0-5/HPF)
--- NOTE | 2019-10-24 13:59 | DI.RAD.S_ITS ---
PROCEDURE: XR CHEST 1V INDICATIONS: Shortness of breath TECHNIQUE: One view of the chest was acquired. COMPARISON: [place], [place] PICC W FLUOROGUIDE, 09/26/2019, 8:12. FINDINGS: Surgical changes and devices: Right upper extremity PICC in unchanged position. Lungs and pleura: Left-sided pleural effusion with overlying atelectasis/consolidation. Bibasilar airspace opacities. Mildly coarsened interstitial markings bilaterally. No pleural effusions or pneumothorax. Mediastinum: Ectatic/aneurysmal ascending thoracic aorta and aortic arch with atherosclerosis. This is not significantly changed from comparison fluoroscopic images for obtained September 2019. Mediastinal contours otherwise normal. Heart size at the upper limits of normal. Bones and chest wall: No suspicious bony lesions. Overlying soft tissues appear unremarkable. IMPRESSION: Left pleural effusion. Bibasilar consolidative airspace disease. Findings may represent cardiogenic pulmonary edema or infectious process. Correlate with CBC findings and BNP. Enlargement of the ascending thoracic aorta with atherosclerosis similar to the comparison study. Unchanged right upper extremity PICC position. Dictated by: Adriano Damico M.D. on 10/24/2019 at 14:30 Approved by: Adriano Damico M.D. on 10/24/2019 at 14:32
[2019-10-24 14:11] LABS: Procalcitonin 0.06 ng/mL (<0.5)
[2019-10-24 14:14] LABS: Thyroid Stimulating Hormone 6.41 uIU/mL (0.47-4.68)
--- NOTE | 2019-10-24 14:53 | DI.CT.S_ITS ---
PROCEDURE: CT ANGIO CHEST ABDOMEN PELVIS INDICATIONS: Short of breath and aneurysm TECHNIQUE: Precontrast 5 mm thick sections acquired from the lung apices to the iliac crests. After the administration of intravenous contrast, 2.5 mm thick sections again acquired from the lung apices to the iliac crests. Maximum intensity projection (MIP) oblique sagittal and coronal reformats were then acquired. For radiation dose reduction, the following was used: automated exposure control. COMPARISON: [facility], CT, CT ABDOMEN WO/W CON, 12/28/2018, 9:47. FINDINGS: Image quality: Excellent. AORTA: Intramural hematoma: Absent Maximum hematoma thickness: Not applicable Focal contrast enhancement: Intramural blood pool (< 2 mm neck or imperceptible communication with aortic lumen): Absent Ulcer-like projection (broad communication with aortic lumen > 3 mm): Absent . Dissection: Absent Justin classification: Not applicable Maximum aortic diameter: 6.4 cm, at the aortic arch. Periaortic hematoma: Absent . CHEST: Lungs and pleura: No acute airspace opacities except for atelectasis adjacent to bilateral small to moderate pleural effusions and what likely is a small degree of pulmonary edema. No pneumothorax. Central and peripheral airways are patent and normal in caliber. Mediastinum: Heart size is globally enlarged, previously the case also to a lesser degree. No pericardial effusion. No mediastinal or hilar adenopathy by size criteria. Central pulmonary arteries are normal in size. Esophagus is normal in caliber. No hiatal hernias. There is evidence of right heart insufficiency given reflux of contrast into the IVC and hepatic veins. Bones and chest wall: No axillary adenopathy by size criteria. Thyroid gland is not well seen. No suspicious bony lesions. No vertebral body compression fractures. ABDOMEN: Vasculature: At the abdomen/pelvis junction there are several thin faint strands within the aortic lumen, best seen centered on series 4, image 78, with an appearance unlikely to represent a true dissection but potentially fibrin stranding within the aortic lumen. Aneurysmal dilatation to an equivalent degree to that previously present on CT scanning from December of last year is again noted. Maximal aortic transverse dimension is 5.1 cm. Celiac trunk and mesenteric arteries are patent. Renal arteries are also patent. Solid organs: Liver is normal in size and enhancement. Gallbladder is not seen . Biliary system is non dilated. Pancreas enhances normally. Spleen is normal in size and enhancement. No adrenal nodules. Both kidneys are normal in size and enhancement, without hydronephrosis. Peritoneum and bowel: No free fluid or air. Bowel loops are normal in caliber and wall thickness. Nodes and vessels: No retroperitoneal or mesenteric adenopathy by size criteria. Inferior vena cava is normal in morphology. Miscellaneous: No ventral hernias. There is generalized anasarca, and mild ascites. This was not previously present. PELVIS: Genitourinary: Bladder wall thickness is normal. Miscellaneous: No inguinal hernias or adenopathy. No ventral hernias. Generalized anasarca and mild ascites is seen as was the case within the abdomen. A left external iliac artery graft/stent appears patent Bones: No suspicious bony lesions. No vertebral body compression fractures. IMPRESSION: 1. Significant interval worsening of fluid status is present now with generalized anasarca, bilateral pleural effusions, and ascites. The pleural effusions are moderate, the anasarca is moderately severe, the ascites is mild. Cardiomegaly has advanced, and mild pulmonary edema appears present in addition to atelectasis from adjacent pleural effusions. Overall there appears to be an exacerbation of chronic CHF. 2. Aneurysmal dilatation has been extensive in this patient, but has not definitely worsened over time. There are several thin strands of low-attenuation within the chest/abdomen junction of the dilated aorta, but the appearance is most likely a manifestation of fibrin stranding rather than dissection by appearance. Note: Findings discussed in detail with the emergency room physician caring the patient. Dictated by: Gerardo Brito M.D. on 10/24/2019 at 15:14 Approved by: Gerardo Brito M.D. on 10/24/2019 at 15:44
[2019-10-24 16:15] LABS: COVID19 -Nasal RAPID Negative (Negative)
[2019-10-24] MEDS: METOPROLOL IR 25 MG TABLET 50 MG PO ×2 (16:45→21:33)
[2019-10-24 18:35] LABS: Free T4, Direct Thyroxine 1.09 ng/dL (0.78-2.19)
[2019-10-24] MEDS: OXYCODONE IR 5 MG TABLET PO ×2 (18:48→23:41)
--- NOTE | 2019-10-24 20:28 | DI.ECHO.S_ITS ---
[facility]+ [facility] +---------+ : : [address] : [place] : : : : [id number] : : : : Phone: [phone]+ Echocardiogram Report + + :Name: DEEPAK JAMIL Study Date: 10/25/2019 Height: 68 in : :[facility] Weight: 210 lb : : Gender: Female BSA: 2.1 m2 : :: 1945 Age: 73 yrs BP: 118/79 mmHg: :Reason For Study: AFIB, CHF : :Ordering Physician: Beverley : :Hospitalist Performed By: Janet Hernández : :Referring: TREVOR STROUD : + + Interpretation Summary 1) Normal left ventricular size with low normal sysotlic function (EF 50-55%). 2) The right ventricle is moderately dilated. Right ventricular systolic function is severely reduced. 3) The interventricular septum is flattened, consistent with a right ventricular pressure overload condition. 4) Both atria are severely dilated. 5) There is mild to moderate mitral regurgitation. 6) There is severe tricuspid regurgitation. 7) The aortic arch is severely enlarged at 5.2cm. 8) There is mild luminal irregularity and echogenicity in the abdominal aorta, suggestive of aortic atherosclerotic disease. 9) The IVC is dilated (diameter is greater than 2.1 cm) and it collapses less than 50% with a sniff. This suggests a high right atrial pressure of 15 mm Hg. 10) There are moderate sized bilateral pleural effusions present. 11) Compared to the Echo done 11/16/2018, hypervolemia is much worse on this study. Procedure: A two-dimensional transthoracic echocardiogram with color flow and Doppler was performed. The study quality was technically good. Comparison is made with the echocardiogram of 11/16/2018. The patient was in atrial fibrillation with heart rates between 97-110 bpm during the exam. Left Ventricle: The left ventricle is normal in size. There is mild-moderate concentric left ventricular hypertrophy. The ejection fraction is estimated to be 50-55%. The interventricular septum is flattened, consistent with a right ventricular pressure overload condition. Diastolic function could not be accurately assessed due to atrial fibrillation. Right Ventricle: The right ventricle is moderately dilated. Right ventricular systolic function is severely reduced. Atria: Both atria are severely dilated. There is no Doppler evidence for an interatrial shunt. Mitral Valve: The mitral valve leaflets appear mildly thickened, but open well. The mitral regurgitant jet is eccentrically directed. There is mild to moderate mitral regurgitation. Aortic Valve: The aortic valve is trileaflet. The aortic valve is moderately calcified. The aortic valve opens well. There is no aortic valve stenosis. No aortic regurgitation is present. Tricuspid Valve: The tricuspid annulus is dilated. There is severe tricuspid regurgitation. RVSP can't be calculated due to severe tricuspid regurgitation. Pulmonic Valve: The pulmonic valve leaflets are thin and pliable; valve motion is normal. There is no pulmonic valvular regurgitation. Great Vessels: The aortic root is normal size. The ascending aorta is at the upper limits of normal in size. The aortic arch is severely enlarged. There is mild luminal irregularity and echogenicity in the abdominal aorta, suggestive of aortic atherosclerotic disease. The IVC is dilated (diameter is greater than 2.1 cm) and it collapses less than 50% with a sniff. This suggests a high right atrial pressure of 15 mm Hg. Pericardium/ Pleura There is no pericardial effusion. There are moderate sized bilateral pleural effusions present. MMode/2D Measurements & Calculations LVIDd: 4.3 cm LVOT diam: 2.0 cm LVIDs: 3.4 cm Ao root diam: 2.9 cm FS: 21.4 % asc Aorta Diam: 3.7 cm EPSS: 0.53 cm Ao Arch Diam (Prox Trans): 5.2 cm IVSd: 1.4 cm LVPWd: 1.1 cm LV kenney. diameter/BSA (cm/m^2): 2.1 LV sys. diameter/BSA (cm/m^2): 1.6 LA A2 area: 33.7 cm2 RA long axis: 7.5 cm LA A4 area: 34.5 cm2 RA area: 36.1 cm2 LA length (vol): 7.3 cm RA vol: 146.6 ml LA vol: 135.1 ml RA : 70.2 ml/m2 LA vol index: 64.8 ml/m2 IVC diam: 3.2 cm RVD1 (basal): 4.6 cm TAPSE: 1.4 cm Doppler Measurements & Calculations Ao V2 max: 134.3 cm/sec LVOT Max Faraz: 89.6 cm/sec Ao V2 mean: 92.7 cm/sec LV V1 max P.2 mmHg Ao max P.2 mmHg LV V1 VTI: 12.9 cm Ao mean P.9 mmHg COLTON(I,D): 1.9 cm2 Ao V2 VTI: 20.7 cm COLTON(V,D): 2.0 cm2 sev ratio: 0.62 COLTON indexed to BSA (cm^2/m^2): 0.91 MV E max faraz: 111.3 cm/sec TR max faraz: 291.1 cm/sec MV A max faraz: 2.6 cm/sec TR max P.9 mmHg MV E/A: 43.3 PA V2 max: 59.6 cm/sec Med Peak E' Faraz: 8.9 cm/sec PA V2 mean: 38.3 cm/sec E/E' med: 12.5 PA mean P.70 mmHg Lat Peak E' Faraz: 20.6 cm/sec PA pr(Accel): 54.6 mmHg E/E' lat: 5.4 E/e' average: 8.9 MV dec time: 0.17 sec SV(LVOT): 39.5 ml Reading Physician:03:17 PM
--- NOTE | 2019-10-24 21:51 | PM.HP.1 ---
History of Present Illness History of Present Illness Date Patient Seen: 10/24/19 Time Patient Seen: 21:04 Chief complaint: weakness, edema Narrative: Mrs. Xochitl Earl is a 73-year-old female who appears older than her stated age with a past medical history significant for chronic atrial fibrillation (anticoagulated only with aspirin related to history gastric bleed), diabetes, hypertension, hyper lipidemia and peripheral vascular disease status post arterial bypass graft left leg with chronic leg wounds followed closely by wound care clinic presents to the ER with worsening generalized weakness and extremity swelling. The patient is a poor historian who describes worsening edema in her legs and arms, left greater than right that has been increasing for 3-4 days. She has an indwelling PICC line in the left line for continuous IV infusion Unasyn for her chronic leg wounds. Patient denies complaints of shortness of breath, orthopnea, chest pain or palpitations. She has apparently unaware of her atrial fibrillation but states she has ?had it for a long time?. She reports no recent illness, fevers or chills and no known COVID-19 exposures. She denies headaches or dizziness nasal congestion or sore throat. Reports no neck or back pain. She has no shortness of breath, cough or wheezing. She denies complaints of abdominal pain, nausea vomiting. She states that she has had no change in bowel habits but cannot tell me when she last moved her bowels. She denies urinary urgency or frequency and is taking oxybutynin. With she denies falls or trauma. Upon arrival to the ER the patient is afebrile with temperature 98.3?, heart rate of 141, blood pressure of 125/94, respiratory rate of 30 saturating 92% on room air. Twelve lead EKG is obtained which finds of atrial fibrillation with rapid ventricular response a rate of 140, unifocal PVCs, no ST or T-wave changes. A chest x-ray obtained finding a left pleural effusion with basilar consolidative airspace disease, pulmonary edema versus pneumonia. S ETA abdomen and pelvis finds aortic aneurysmal changes without dissection, small amount of pulmonary edema, generalized anasarca with bilateral pleural effusions and ascites. Venous ultrasound is obtained of the left upper extremity with an indwelling PICC line finding no evidence of DVT. On laboratory analysis she has a white count of 5.0, hemoglobin of 9.7, hematocrit of 30.9, platelets of 109. She has a PT of 14.6, INR of 1.3 and a PTT of 26. Her electrolytes are all in the normal range with a potassium 4 2 and magnesium of 2.0. Her BUN is 36 and creatinine is 1.35. Her nonfasting glucose is 143. She has a total bilirubin 0.9 AST of 26, ALT of 7 and alkaline phosphatase of 77 with an albumin of 3.1. His lactic acid of 2.0. She has a total CK of 4.6 and a troponin of 0.034 and a proBNP of 6430. . She is found have an elevated TSH at 6.41 with a normal free T4 of 1.09. Urinalysis finds a specific gravity of 1.015, trace ketones, trace leukocyte esterase, negative nitrates her blood, wbc's 5-10 and yeast t 5-10 and reflexed to culture. In the ER the patient received diltiazem 10 mg x 2 and metoprolol tartrate 50 mg by mouth. She also received Lasix 40 mg. Patient was started on nasal cannula 2 liters/minute with improvement in oxygenation to 98%. COVID-19 screening is negative. The patient's admitted to the medicine service for atrial fibrillation with rapid ventricular response and exacerbation of chronic heart failure. Patient History Medical History (Updated 10/25/19 @ 00:39 by OWEN Kirkland) Aortic aneurysm (Acute) CHF (congestive heart failure) (Inactive) Chronic atrial fibrillation (Acute) Chronic ulcer of leg (Acute) Diabetes type 2, controlled (Acute) Gastric bleed (Acute) Hyperlipidemia (Acute) Hypertension (Acute) PAD (peripheral artery disease) (Acute) Surgical History (Updated 10/25/19 @ 00:40 by OWEN Kirkland) History of esophagogastroduodenoscopy (EGD) (Acute) History of femoropopliteal bypass (Acute) Family & Social History Family History (Updated 10/25/19 @ 00:41 by OWEN Kirkland) Father Cancer Smoker Mother Atrial fibrillation Congestive heart failure Social History: household members children Prior Living Arrangements Apartment/Condo Safety & Behavioral: Feels Safe in Current Yes Environment Been Physically Hurt or No Threatened By a Person Suicidal Ideation Description None Suicide Plan Description No Plan Tobacco & Substance use: Smoking Status Former smoker alcohol intake current alcohol intake frequency holiday/special occasion Substance Use Type does not use Meds Home Medications and Allergies Home Medications Medication Instructions Recorded Confirmed Type alendronate 70 mg PO QWEEK 10/24/19 10/24/19 History amlodipine 5 mg PO DAILY 10/24/19 10/24/19 History ampicillin-sulbactam 12 g IV DAILY 10/24/19 10/24/19 History ascorbic acid (vitamin C) 500 mg PO DAILY 10/24/19 10/24/19 History aspirin [Adult Low Dose Aspirin] 81 mg PO DAILY 10/24/19 10/24/19 History cholecalciferol (vitamin D3) 25 mcg PO DAILY 10/24/19 10/24/19 History [Vitamin D3] clonidine HCl 0.1 mg PO BID 10/24/19 10/24/19 History diltiazem HCl 120 mg PO DAILY 10/24/19 10/24/19 History furosemide 40 mg PO QAM 10/24/19 10/24/19 History gabapentin 900 mg PO Q8HR 10/24/19 10/24/19 History losartan 100 mg PO DAILY 10/24/19 10/24/19 History metformin 500 mg PO BID 10/24/19 10/24/19 History metoprolol tartrate 50 mg PO BID 10/24/19 10/24/19 History mupirocin calcium 1 applic TOPICAL DAILY 10/24/19 10/24/19 History oxybutynin chloride 5 mg PO DAILY 10/24/19 10/24/19 History oxycodone 5 mg PO QID PRN 10/24/19 10/24/19 History pantoprazole 40 mg PO BID 10/24/19 10/24/19 History potassium chloride 20 meq PO QAM 10/24/19 10/24/19 History sucralfate 10 ml PO QID 10/24/19 10/24/19 History zinc 50 mg PO DAILY 10/24/19 10/24/19 History Allergies Allergy/AdvReac Type Severity Reaction Status Date / Time No Known Allergies Allergy Verified 10/24/19 12:49 Review of Systems Review of Systems ROS: Yes All systems reviewed with the patient and are negative except as otherwise documented Exam Vital Signs (past 8 hours): - 10/24/19 14:00 10/24/19 14:15 10/24/19 14:30 Temperature Pulse Rate 140 H 132 H 140 H Respiratory Rate 31 H 25 H 16 Blood Pressure 117/81 119/91 H Pulse Oximetry 98 99 100 10/24/19 14:45 10/24/19 15:11 10/24/19 15:12 Temperature Pulse Rate 134 H 120 H 138 H Respiratory Rate 21 24 Blood Pressure 130/95 H 135/92 H Pulse Oximetry 99 97 98 10/24/19 15:14 10/24/19 15:15 10/24/19 15:30 Temperature Pulse Rate 153 H 136 H 139 H Respiratory Rate 22 21 21 Blood Pressure 130/69 Pulse Oximetry 98 98 98 10/24/19 15:45 10/24/19 16:00 10/24/19 16:15 Temperature Pulse Rate 136 H 152 H 150 H Respiratory Rate 21 24 18 Blood Pressure Pulse Oximetry 98 98 97 10/24/19 16:30 10/24/19 16:43 10/24/19 16:44 Temperature Pulse Rate 152 H 136 H 156 H Respiratory Rate 28 H 23 Blood Pressure 150/96 H 150/96 H Pulse Oximetry 97 98 10/24/19 16:45 10/24/19 17:00 10/24/19 17:01 Temperature Pulse Rate 102 H 125 H 125 H Respiratory Rate 24 22 22 Blood Pressure 154/77 H 115/65 Pulse Oximetry 98 98 96 10/24/19 17:15 10/24/19 17:40 10/24/19 17:52 Temperature 98.5 F 97.6 F Pulse Rate 131 H 98 H 107 H Respiratory Rate 17 23 20 Blood Pressure 119/79 111/75 106/66 Pulse Oximetry 98 97 99 10/24/19 21:20 Temperature 98.4 F Pulse Rate 108 H Respiratory Rate 30 H Blood Pressure 118/79 Pulse Oximetry 95 Oxygen Delivery Method Nasal Cannula Oxygen Flow Rate 2 Narrative Exam Narrative: GENERAL APPEARANCE: well developed, elderly female older appearing than her stated age, tachypneic but in no acute distress. HEENT: Normocephalic, PERRLA, conjunctiva clear, EOMs intact without nystagmus, no sinus tenderness to percussion, no rhinorrhea, mucous membranes are moist and pink without lesions or exudate. NECK/THYROID: neck supple, nontender, no JVD, no carotid bruit, no thyromegaly, trachea midline. LYMPH NODES: no cervical or supraclavicular lymphadenopathy. SKIN: [place], warm and dry, bilat bowel lower extremity wounds dressed from wound clinic not visualized. HEART: Irregularly irregular rhythm, S1-S2, 1/6 systolic murmur, no rubs or gallops, brisk capillary refill, generalized edema with anasarca up to the costal margin LUNGS: Breath sounds diminished bilateral bases left greater than right with basilar crackles, no coarseness or wheezing, no cough present CHEST: Symmetrical movement, tachypneic, no accessory muscle use, shallow tidal volume ABDOMEN: round, distended, nontender to palpation, no organomegaly, no flank or suprapubic tenderness, active bowel tones. EXTREMITIES: moves all extremities, strength is 4/5 and symmetrical, no deformities or joint effusions. NEUROLOGIC: AAO to person and place, impaired recall, cranial nerves II-XII grossly intact, sensation intact to light touch, hearing grossly normal to speech. PSYCH: Good eye contact, anxious appearing, cooperative Objective Labs Result Diagrams: 10/24/19 12:50 10/24/19 12:50 Labs: Laboratory Results - last 24 hr 10/24/19 10/24/19 10/24/19 12:50 12:50 12:50 WBC 5.0 RBC 3.52 L Hgb 9.7 L Hct 30.9 L MCV 87.9 MCH 27.6 MCHC 31.4 RDW 19.6 H Plt Count 109 L Neut % (Auto) 69.6 Lymph % (Auto) 17.6 L [place] % (Auto) 11.9 Eos % (Auto) 0.4 L Baso % (Auto) 0.5 Neut # (Auto) 3500 Lymph # (Auto) 900 L [place] # (Auto) 600 Eos # (Auto) 0 Baso # (Auto) 0 PT 14.6 H INR 1.3 APTT 26 L Sodium Potassium Chloride Carbon Dioxide BUN Creatinine Estimated GFR BUN/Creatinine Ratio Glucose Lactate Calcium Magnesium 2.0 Total Bilirubin AST ALT Alkaline Phosphatase Total Creatine Kinase 46 CK-MB (CK-2) TNP CK-MB (CK-2) Rel Index TNP Troponin I 0.034 NT-Pro-B Natriuret Pep 6430 H Total Protein Albumin Globulin Albumin/Globulin Ratio Procalcitonin TSH Free T4 Urine Color Urine Appearance Urine pH Ur Specific [place] Urine Protein Urine Glucose (UA) Urine Ketones Urine Occult Blood Urine Nitrate Urine Bilirubin Urine Urobilinogen Ur Leukocyte Esterase Urine RBC Urine WBC Urine Bacteria Urine Yeast Ur Culture Indicated? Nasal Screen MRSA (PCR) COVID-19 PCR 10/24/19 10/24/19 10/24/19 12:50 12:50 12:50 WBC RBC Hgb Hct MCV MCH MCHC RDW Plt Count Neut % (Auto) Lymph % (Auto) [place] % (Auto) Eos % (Auto) Baso % (Auto) Neut # (Auto) Lymph # (Auto) [place] # (Auto) Eos # (Auto) Baso # (Auto) PT INR APTT Sodium 139 Potassium 4.2 Chloride 102 Carbon Dioxide 28 BUN 36 H Creatinine 1.35 H Estimated GFR 38.4 L BUN/Creatinine Ratio 26.7 H Glucose 143 H Lactate 2.0 Calcium 8.7 Magnesium Total Bilirubin 0.9 AST 23 ALT 7 Alkaline Phosphatase 77 Total Creatine Kinase CK-MB (CK-2) CK-MB (CK-2) Rel Index Troponin I NT-Pro-B Natriuret Pep Total Protein 6.0 L Albumin 3.1 L Globulin 2.9 Albumin/Globulin Ratio 1.1 Procalcitonin 0.06 TSH Free T4 Urine Color Urine Appearance Urine pH Ur Specific [place] Urine Protein Urine Glucose (UA) Urine Ketones Urine Occult Blood Urine Nitrate Urine Bilirubin Urine Urobilinogen Ur Leukocyte Esterase Urine RBC Urine WBC Urine Bacteria Urine Yeast Ur Culture Indicated? Nasal Screen MRSA (PCR) COVID-19 PCR 10/24/19 10/24/19 10/24/19 12:50 12:50 13:12 WBC RBC Hgb Hct MCV MCH MCHC RDW Plt Count Neut % (Auto) Lymph % (Auto) [place] % (Auto) Eos % (Auto) Baso % (Auto) Neut # (Auto) Lymph # (Auto) [place] # (Auto) Eos # (Auto) Baso # (Auto) PT INR APTT Sodium Potassium Chloride Carbon Dioxide BUN Creatinine Estimated GFR BUN/Creatinine Ratio Glucose Lactate Calcium Magnesium Total Bilirubin AST ALT Alkaline Phosphatase Total Creatine Kinase CK-MB (CK-2) CK-MB (CK-2) Rel Index Troponin I NT-Pro-B Natriuret Pep Total Protein Albumin Globulin Albumin/Globulin Ratio Procalcitonin TSH 6.41 H Free T4 1.09 Urine Color Yellow Urine Appearance Sl cloudy Urine pH 5.0 Ur Specific [place] 1.015 Urine Protein Trace H Urine Glucose (UA) Negative Urine Ketones Trace H Urine Occult Blood Negative Urine Nitrate Negative Urine Bilirubin Negative Urine Urobilinogen 0.2 Ur Leukocyte Esterase Trace H Urine RBC None seen Urine WBC 5-10/hpf H Urine Bacteria Occasional (0-1) Urine Yeast 5-10/hpf H Ur Culture Indicated? Specimen cultured Nasal Screen MRSA (PCR) COVID-19 PCR 10/24/19 10/24/19 10/24/19 14:50 15:40 18:00 WBC RBC Hgb Hct MCV MCH MCHC RDW Plt Count Neut % (Auto) Lymph % (Auto) [place] % (Auto) Eos % (Auto) Baso % (Auto) Neut # (Auto) Lymph # (Auto) [place] # (Auto) Eos # (Auto) Baso # (Auto) PT INR APTT Sodium Potassium Chloride Carbon Dioxide BUN Creatinine Estimated GFR BUN/Creatinine Ratio Glucose Lactate Calcium Magnesium Total Bilirubin AST ALT Alkaline Phosphatase Total Creatine Kinase CK-MB (CK-2) CK-MB (CK-2) Rel Index Troponin I NT-Pro-B Natriuret Pep Total Protein Albumin Globulin Albumin/Globulin Ratio Procalcitonin TSH Free T4 Urine Color Urine Appearance Urine pH Ur Specific [place] Urine Protein Urine Glucose (UA) Urine Ketones Urine Occult Blood Urine Nitrate Urine Bilirubin Urine Urobilinogen Ur Leukocyte Esterase Urine RBC Urine WBC Urine Bacteria Urine Yeast Ur Culture Indicated? Nasal Screen MRSA (PCR) Negative for mrsa COVID- PCR Cancelled Negative 10/24/19 20:35 WBC RBC Hgb Hct MCV MCH MCHC RDW Plt Count Neut % (Auto) Lymph % (Auto) [place] % (Auto) Eos % (Auto) Baso % (Auto) Neut # (Auto) Lymph # (Auto) [place] # (Auto) Eos # (Auto) Baso # (Auto) PT INR APTT Sodium Potassium Chloride Carbon Dioxide BUN Creatinine Estimated GFR BUN/Creatinine Ratio Glucose Lactate Calcium Magnesium Total Bilirubin AST ALT Alkaline Phosphatase Total Creatine Kinase CK-MB (CK-2) CK-MB (CK-2) Rel Index Troponin I 0.040 H NT-Pro-B Natriuret Pep Total Protein Albumin Globulin Albumin/Globulin Ratio Procalcitonin TSH Free T4 Urine Color Urine Appearance Urine pH Ur Specific [place] Urine Protein Urine Glucose (UA) Urine Ketones Urine Occult Blood Urine Nitrate Urine Bilirubin Urine Urobilinogen Ur Leukocyte Esterase Urine RBC Urine WBC Urine Bacteria Urine Yeast Ur Culture Indicated? Nasal Screen MRSA (PCR) COVID-19 PCR Assessment & Plan Assessment & Plan narrative: This is a 73-year-old female patient who presents to the ER complaining general weakness and is found to be in rapid atrial fib with an exacerbation of CHF and pronounced anasarca up to the costal margin and abdominal ascites resulting and rapid shallow breathing. 1. Chronic Atrial fibrillation with rapid ventricular response, present on admission, active -patient reports chronic atrial fibrillation, she reports no chest pain or palpitations and is unaware of her rhythm. Patient is found to be in atrial fibrillation with 12 lead EKG finding atrial fibrillation at 140 with PVCs without evidence of ischemia or [place]. -patient has a total CK of 46, troponin of 0.034, will trend troponins with repeat troponin this evening. ProBNP is 6430. TSH is elevated at 6.41 however free T4 is normal at 1.09. Potassium is 4.2 and magnesium is 2.0. -patient is not anticoagulated on other than aspirin 81 mg daily related to history of GI bleed, will add Plavix 75 mg daily. -in the ER the patient received diltiazem 10 mg x 2 and metoprolol tartrate 50 mg orally with improvement in heart rate to the 90s to 100s. -ordered metoprolol tartrate 50 mg twice daily with next dose tonight. -will continue home regimen of diltiazem 120 mg daily. -ordered metoprolol tartrate 5 mg IV every 6 hours as needed for heart rate greater than 110 and blood pressure greater than 110. -ordered echocardiogram for the morning. -will closely monitor electrolytes 2. Acute exacerbation of chronic heart failure with preserved ejection fraction, present on admission, active -patient describes worsening swelling of arms and legs over the last 3-4 days. Patient presents with generalized anasarca up into the abdomen with pitting edema to the costal margin. -CT a of the abdomen and pelvis find significant interval worsening of fluid status with moderate to severe generalized anasarca, moderate bilateral pleural effusions and mild ascites, worsening cardiomegaly with mild pulmonary edema with atelectasis of adjacent pleural effusions consistent with exacerbation of chronic CHF per radiologist's read. -swelling upper extremities with left greater than right with left having PICC line in place. Venous ultrasound is obtained finding no evidence of DVT. -the patient's last echo was completed on 11/16/2018 revealing ejection fraction of 60-65%, mildly dilated right ventricle, severely dilated bilateral atria, moderate mitral regurgitation, [id number] tricuspid regurgitation, right ventricular systolic pressure is estimated 56 mm/Hg with right atrial pressure of 15 mm/Hg. -proBNP is 6430, total CK is 46 and troponin is 0.0334. -patient received Lasix 40 mg in the emergency department with no subjective improvement per patient report. -order Lasix 40 mg twice daily at 0800 and 1700. -will monitor electrolytes with diuresis. 3. Acute kidney injury, present on admission, active -elevated serum creatinine at 1.35 on admission labs, creatinine was 0.95 on 09/26/2019. -will continue Lasix therapy necessary for management of congestive failure and anasarca. -will avoid other renal toxic agents. -will renally dose medications. 4. Diabetes type 2 non insulin dependent, controlled, stable -Blood sugar is 143 on admission labs. -patient routinely takes metformin 500 mg twice daily. Her last hemoglobin A1c was 5.9 in February 2019. -ordered fingerstick glucose checks a.c. and HS with low-dose correctional insulin. -will recheck hemoglobin A1c. -ordered low-sodium constant carbohydrate diet. 5. Anemia, normochromic normocytic, chronic, stable -patient with documented anemia since February of 2019 and presents today with a hemoglobin of 9.7 which is improved over previous hemoglobin 9.2 on 09/26/2019. -the patient is currently significantly fluid overloaded with a delusional component. -MCV is 87.9 with MCH of 27.6 with an elevated RDW at 19.6 and platelets of 109. -ordered iron panel. 6. Peripheral vascular disease, status post femoral-popliteal bypass, with chronic wounds bilateral lower legs, present on admission, stable -patient is closely followed by wound care clinic under the care of Dr. Willoughby. -the patient is currently receiving infusion therapy with Unasyn 12 g in 400 cc infusing at 20 cc/hour per Dr. Willoughby which is continued. 7. Acute on chronic generalized weakness, chronic, stable -patient with increased weakness related to fluid retention. -requested PT and OT to consult evaluate and treat. 8. Aortic aneurysm, chronic, stable -CT angiogram finds extensive aneurysmal dilation but not worse over time, without dissection. VTE prophylaxis: Heparin and dual antiplatelet therapy. IV fluid: Continues Unasyn infusion Diet: Low-sodium, constant carbohydrate, protein supple Code status full code, patient designates Vinita Cordero to be her surrogate decision maker. The patient is admitted due to the severity of her symptoms risk of complications and adverse events. The patient requires ongoing monitoring and further evaluation. The patient is admitted as an inpatient with expected length of stay to be greater than 2 midnights. COVID-19 COVID-19 status: Negative Result date/Date tested (Pos, Neg/Pending): 10/24/19 Scores GCS Yossi coma scale eye opening: Spontaneous [place]i coma scale verbal response: Confused [place] coma scale motor response: Obey commands [place] coma scale total score: 14
--- NOTE | 2019-10-24 21:52 | PC.NURSE ---
SCD ORDERED BUT NOT ON PER RN DUE TO HER FOOT ULCERS.FOOT ELEVATED WITH PILLOWS.
[2019-10-24] MEDS: PANTOPRAZOLE 40 MG TABLET PO (22:01)
[2019-10-24] MEDS: ACETAMINOPHEN 325 MG TABLET 650 MG PO (22:06)
[2019-10-24 22:30] LABS: Procalcitonin 0.05 ng/mL (<0.5)
[2019-10-24] MEDS: METOPROLOL TARTRATE 5 MG/5 ML INJ IV (23:03)
[2019-10-25] VITALS (16 sets, daily range): BP systolic 82–114; BP diastolic 52–74; PULSE 80–122; RESP 7–28; TEMP 36.4–36.7; O2SAT 64–98
[2019-10-25] MEDS: OXYCODONE IR 5 MG TABLET PO (02:29)
[2019-10-25 05:37] LABS: Add Manual Diff / Slide Review NO; Basophils Absolute Auto 0 /uL (0-100); Basophils Percent Auto 0.7 % (0-2); Eosinophils Absolute Auto 100 /uL (0-450); Eosinophils Percent Auto 1.2 % (2-4); Hematocrit 29.1 % (36-46); Hemoglobin 9.1 g/dL (12.0-16.0); Lymphocytes Absolute Auto 1200 /uL (1100-4500); Mean Corpuscular HGB Conc 31.1 % (30-36); Mean Corpuscular Hemoglobin 27.4 PG (26-34); Mean Corpuscular Volume 88.1 fL (80-100); Monocytes Absolute Auto 600 /uL (0-900); Monocytes Percent Auto 11.8 % (3-14); Neutrophils Absolute Auto 3500 /uL (1500-7000); Neutrophils Percent Auto 64.3 % (50-75); Platelet Count 144 X10^3/uL (150-400); Red Blood Cell Count 3.31 X10^6/uL (4.0-5.2); Red Cell Distribution Width 19.5 % (11.6-14.8); White Blood Cell Count 5.5 X10^3/uL (4.5-11.0)
[2019-10-25 05:43] LABS: HEMOLYSIS < 15 (0-50); Iron 28 ug/dL (37-170)
[2019-10-25 05:44] LABS: Hemoglobin A1C% w Est Avg Glu 6.4 % (4.0-6.0)
[2019-10-25 05:53] LABS: Creatine Kinase 33 U/L (30-135)
[2019-10-25 05:54] LABS: BUN Creatinine Ratio 27.7 (6-22); Blood Urea Nitrogen 36 mg/dL (7-17); Calcium 8.3 mg/dL (8.4-10.2); Carbon Dioxide 29 mmol/L (22-32); Chloride 104 mmol/L (98-107); Cholesterol 76 mg/dL (140-199); Estimated Glomerular Filt Rate 40.2 mL/min (>60); Glucose 104 mg/dL (80-110); HDL Cholesterol 19 mg/dL (40-60); HEMOLYSIS < 15 (0-50); LDL Cholesterol Calculated 41 mg/dL (<100); Percent Iron Saturation 9 % (15-50); Potassium 3.9 mmol/L (3.4-5.1); Sodium 139 mmol/L (137-145); Total Iron Binding Capacity 329 ug/dL (265-497); Transferrin 253 mg/dL (206-381); Triglycerides 81 mg/dL (35-150)
[2019-10-25 06:04] LABS: Troponin I 0.042 ng/mL (0.01-0.034)
--- NOTE | 2019-10-25 09:16 | CM.DANOTE ---
Discharge Planning/Care Management DCP: assessment: case received, EMR reviewed and met briefly with pt. Introduced self and role. Pt appeared ill, said she was feeling very nauseated and that it would be best to talk to her daughter Vinita regarding her care needs. Spoke then with Vinita Cordero by phone: H: [phone]. She had just woken up but was able to say that her mother lives with her. She takes her to the Wound Care clinic where she see's Dr. Sharif. She is on IV Unasyn and this is with [facility]. She said she could not recall specifics of much of this and wondered why her mother was feeling nauseated. Explained Team Bedside Rounding with hospitalists and encouraged her to be here at 0945 if possible so she could talk with Dr. Villegas. She said this would not be possible today but maybe tomorrow. Spoke then with Girish (in for Adryan) at [facility]. He conferred with pharmacist Alice who is following this case. He stated that [facility] had been working with Dr. Sharif to adjust the dosing of the IV Unasyn as pt is currently getting hyperbaric therapy at the clinic and thus the dosing was being adusted for 20 rather than the recommended 24 hour day continuous infusion. The pharmacy team noted this was affecting pt's kidney function and they directed pt to go the the ER. He noted that Alice would be very willing to talk with staff to discuss this further. ([facility]: [phone].) He requested clinical notes be faxed to [facility] and KENIA Garcia will do this today before she leaves. P: follow as needs unfolds. Payer: Medicare and Medicaid PCP: Giuliana Dao Admitted 8 afternoon to care of hospitalist team. Admission status: INPT. Advanced directive, confirm from FAMILY Start: 10/24/19 17:55 Freq: Q24H Status: Active Protocol: Document 10/24/19 21:12 AK (Rec: 10/24/19 21:12 AK [id number]) Advance Directive, confirm on record Time 21:12 Person contacted daughter Copy received No CM Discharge Assessment Start: 10/25/19 09:07 Freq: Status: Active Protocol: Document 10/25/19 09:08 ITV (Rec: 10/25/19 09:10 ITV [id number]) Discharge Planning Assessment Advance Directives? Yes History Provided By Patient,Family Member,Medical Record Prior Living Arrangements Apartment/Condo Comment [employer] Members Comment lives with her daughter Vinita Type of transporation used prior to Relies on Others admit White-board Updated in Patient Room with Yes name and ext. # of Sales Agent Pest Control Service Review Status In Process
[2019-10-25] MEDS: ONDANSETRON 4 MG/2 ML INJ IV (09:20)
[2019-10-25] MEDS: FUROSEMIDE 40 MG/4 ML VIAL IV ×2 (09:30→09:39)
[2019-10-25] MEDS: POTASSIUM CHLORIDE 20 MEQ TAB PO ×2 (09:36→16:30)
[2019-10-25] MEDS: ASPIRIN EC 81 MG TABLET PO (09:37)
[2019-10-25] MEDS: METOPROLOL IR 25 MG TABLET 50 MG PO ×2 (09:37→21:11)
[2019-10-25] MEDS: GABAPENTIN 600 MG TABLET PO ×2 (09:37→21:11)
[2019-10-25] MEDS: AMLODIPINE 5 MG TABLET PO (09:37)
[2019-10-25] MEDS: cloNIDine 0.1 MG TABLET PO (09:37)
[2019-10-25] MEDS: CLOPIDOGREL 75 MG TABLET PO (09:37)
[2019-10-25] MEDS: PANTOPRAZOLE 40 MG TABLET PO ×2 (09:37→21:11)
[2019-10-25] MEDS: LOSARTAN 50 MG TABLET 100 MG PO (09:38)
[2019-10-25] MEDS: OXYBUTYNIN 5 MG ER TAB PO (09:38)
[2019-10-25] MEDS: HEPARIN 5,000 UNIT/ML VIAL 5000 UNIT SUBCUT ×2 (09:38→21:13)
[2019-10-25] MEDS: dilTIAZem CD 120 MG CAP PO (09:39)
[2019-10-25] MEDS: SODIUM CHLORIDE 0.9% FLUSH 10 ML IV ×2 (09:39→22:06)
[2019-10-25] MEDS: [UNRECOGNIZED DRUG - REMARK] PO (11:15)
[2019-10-25] MEDS: METOPROLOL TARTRATE 5 MG/5 ML INJ IV (11:26)
--- NOTE | 2019-10-25 12:51 | PT.IIE ---
Current Diagnoses Chronic atrial fibrillation, unspecified (10/24/19) Surgical History (Last Updated 10/25/19 @ 00:40 by OWEN Kirkland) History of esophagogastroduodenoscopy (EGD) (Acute) History of femoropopliteal bypass (Acute) Medical History (Last Updated 10/25/19 @ 00:39 by OWEN Kirkland) Aortic aneurysm (Acute) CHF (congestive heart failure) (Inactive) Chronic atrial fibrillation (Acute) Chronic ulcer of leg (Acute) Diabetes type 2, controlled (Acute) Gastric bleed (Acute) Hyperlipidemia (Acute) Hypertension (Acute) PAD (peripheral artery disease) (Acute) Physical Therapy Inpatient Evaluation/Re-Eval M1 PT/OT-IP Prior Functional Status Start: 10/25/19 09:33 Freq: NEEDED Status: Active Protocol: Document 10/25/19 12:11 AW (Rec: 10/25/19 12:50 AW [id number]) Medical Review Prior Functional Status Medical History Reviewed Yes Communication Pt is able to make needs known . Mobility and Gait Pt has limited mobility with use of 4WW. She has had recent difficulty getting in and out of bed. She uses a wheelchair for mobility when she attends regular wound care appointments at this hospital. Pt's daughter has been assisting the pt to lift her legs for stair navigation to access her home. Activities of Daily Living and IADL's Pt's daughter, Vinita, provides assist for dressing tasks. She provides SBA and help with washing pt's back when she is able to shower but this has been limited lately due to wound dressings. Vinita states the pt is independent with toilet hygiene but that she provides assist to transfer to and from the toilet. She uses a BSC at night or when she is particularly weak. Prior Functional Level (Other details) Pt's daughter, Vinita, is pt's ELDA caregiver with 50 hours per month. Pt currently receiving home services through [facility]. Social History Household Members children Living Arrangements Apartment/Condo Number of Stairs To Enter/Railing? 2 JON[address] the building with bilateral rails + 2 steps inside the building to her apartment. Home Environment Standard Height Toilet,Tub/ Shower Home Equipment Front Wheel Walker,Four Wheel Walker,Straight Cane,Bedside Commode,Raised Toilet Seat w/ Armrests,Shower Seat without Backrest,Grab Bars In Shower Additional Social History Comment Pt lives with her daughter, Vinita, who provides multimedia artist caregiver assist. They identify one other relative ( sister?) in [place] but they are unable to visit due to border restrictions. M2 PT-IP Current Condition Start: 10/25/19 09:33 Freq: NEEDED Status: Active Protocol: Document 10/25/19 12:11 AW (Rec: 10/25/19 12:50 AW [id number]) Physical Therapy Current Condition Current Condition Evaluation Date 10/25/19 Treatment Diagnosis CHF exacerbation, general weakness, difficulty in walking Onset Date 10/24/19 Precautions Other Precautions Chronic LLE wounds. PICC line RUE M3 PT-IP Subjective Start: 10/25/19 09:33 Freq: NEEDED Status: Active Protocol: Document 10/25/19 12:11 AW (Rec: 10/25/19 12:50 AW [id number]) Subjective Physical Therapy Visit Type Type Initial Evaluation Visit Start Time 10:06 Visit Stop Time 10:55 Total Visit Minutes 49 Physical Therapy Visit Comments Patient Comments Pt is sleepy and requires encouragement to participate but ultimately agrees to mobilize with PT Therapy Pain Assessment Pain When Pain Assessed During Mobility Pain Present Pain Present Pain Reported Location ankle Scale Used not quantified Pain Behaviors Calling Out,Crying,Facial Grimacing,Guarding,Wincing Pain Management Techniques Distraction,Elevation,Re- positioning M4 PT-IP Mobility and Gait Start: 10/25/19 09:33 Freq: NEEDED Status: Active Protocol: Document 10/25/19 12:11 AW (Rec: 10/25/19 12:50 AW [id number]) PT-Bed Mobility Assessment Supine to Sit Supine to Sit Maximum Assistance,1 Person Assistance,Bedrails Scooting Scooting to Edge of Bed Moderate Assistance PT-Transfer Assessment Sit to and From Stand Sit to and from Stand Maximum Assistance,1 Person Assistance,Use of Upper Extremities Equipment Transfer Assistive Device Gait Belt,Front Wheeled Walker Orthotic/Prosthetic Devices or Brace: No Transfers Transfer Destination Chair Transfer Technique Stand Step Pivot Transfer Ability Level of Assist Maximum Assistance,1 Person Assistance,Use of Upper Extremities Comments Mobility Comments Pt was reclined in the bed when PT arrived. HR was elevated in the 120-130's. BP was 116/83. Pt was on 2L/min O2 via NC and SpO2 was low 90' s with encouragement for deep breaths. RT arrived and requested to trial mobility without supplemental O2. Pt required max A x 1 to move her legs toward the left side of the bed and to right her trunk from supine in flat bed. Pt resisted, calling out that she did not want to get up, but ultimately sat EOB with max encouragement, cues, and assist. Pt required mod assist for sitting balance to correct leftward and posterior lean as well as max cues for hand placement on the bed to steady herself. Pt required mod assist to scoot to EOB in preparation for standing. SpO2 ranged from 82-89% on room air even as pt was cued for deep and diaphragmatic breathing. She stood using FWW max A x 1 with max cues and tactile facilitation required for knee extension. Once she had her hands on the walker, pt used heavy UE weightbearing but was unable to distribute her weight evenly, demonstrated markedly decreased LLE weightbearing. Pt was able to take a few steps with FWW, sliding her left foot along the ground and requiring max A x 1 as she pivoted to sit on the chair. Pt needed max A x 1 for transfer to the chair, demonstrating poor control of descent. Pt was positioned with legs elevated using recliner and additional pillows. RT bumped flow rate on supplemental O2 up to 3L/ min and SpO2 recovered to 94%. Pt's daughter then arrived and provided home setup details. Pt was left with call light and all needs in reach, daughter visiting in room. Gait Assessment Gait Gait Assistance Required: Maximum Assistance,1 Person Assist Distance (Feet) 2 Assistive Devices Assistive Device Gait Belt,Front Wheeled Walker Gait Deviations General Gait Pattern Antalgic,Decreased Stride Length,Decreased Feet Clearance,Flexed Trunk,Lateral Trunk Lean,Step-to Gait Factors Limiting Gait Function Factors Limiting Gait Function Decreased Activity Tolerance, Decreased Sensation,Decreased Strength,Limited Range of Motion,Pain,Poor Balance,Poor Safety Awareness,Respiratory Distress Comments Gait Comments See mobility comments for details. Transfer only. Pt unable to tolerate more activity. Stair Climbing Assessment Comments Stair Climbing Comments Not assessed. PT-Balance Assessment Sitting Balance and Reactions Static Sitting Balance Ability Poor Dynamic Sitting Balance Ability Poor Standing Balance and Reactions Static Standing Balance Ability Poor Dynamic Standing Balance Ability Poor Device Used FWW M5 PT-IP Objective Assessments Start: 10/25/19 09:33 Freq: NEEDED Status: Active Protocol: Document 10/25/19 12:11 AW (Rec: 10/25/19 12:50 AW [id number]) Orientation Orientation/Cognition Level of Alertness Lethargic Orientation Name,Place,Situation Language Function Ability No Deficits Noted Safety Awareness Decreased Safety Awareness Memory Description Short Term Impaired,[place] [employer]isher Impaired Comments Pt was somnolent and struggled to answer many questions, unable to manage any increase in cognitive load. Gross Range of Motion Upper Extremity ROM Assessment Bilaterally Impaired Lower Extremity ROM Assessment Bilaterally Impaired Impairments Pt lacks active ankle DF (L more affected than R) Strength Upper Extremity Strength Assessment Bilaterally Impaired Lower Extremity Strength Assessment Bilaterally Impaired Hip 3-/5 Knee 3-/5 Ankle 3-/5 Comments Strength Comments BLE strength globally impaired Coordination Assessment Assessment Coordination Comments Unable to assess Sensation Assessment Sensation Gross Sensation Right LE Impaired,Left LE Impaired Light Touch Impaired Sensation Description Numbness,Heaviness Muscle Tone Muscle Tone WNL Yes M6 PT-IP Treatment Start: 10/25/19 09:33 Freq: NEEDED Status: Active Protocol: Document 10/25/19 12:11 AW (Rec: 10/25/19 12:50 AW [id number]) Physical Therapy Treatment Exercises Exercises Ankle Pumps Education Education Provided Safety Other Treatments Other Treatment Performed Provided education on role of PT, plan of care, risks of immobility, and safe use of FWW. M7 PT-IP Assessment and Plan Start: 10/25/19 09:33 Freq: NEEDED Status: Active Protocol: Document 10/25/19 12:11 AW (Rec: 10/25/19 12:50 AW [id number]) PT Summary Assessment and Plan Potential Rehabilitation Potential Fair Status of Condition at Evaluation Evolving Summary Impairments Pain,ROM,Strength,Balance, Coordination,Sensation, Cognition,Bed Mobility, Transfers,Gait,Activity Tolerance Assessment Summary Xochitl is a 73 yo woman seen for PT evaluation with admitting diagnosis of CHF exacerbation and left pleural effusion. Mobility is limited at baseline with use of 4WW in the home and wheelchair propelled by her daughter when attending regular wound care appointments. Pt lives with her daughter, Vinita, who provides primary caregiver support. On evaluation, pt is requiring one-person max assist with all mobility and is unable to tolerate much activity due to weakness, respiratory distress, and pain . Home is not likely to be a safe discharge plan for this pt who would benefit from SNF rehab to address strength and functional mobility deficits. Goals Bed Mobility Goal Contact Guard Assistance Transfer Goal Minimal Assistance,Front Wheeled Walker Gait Goal Minimal Assistance,Front Wheel Walker Gait Distance 75 Other Goals - up/down 2 steps with bilateral rails CGA Days to Meet Goals 10 Frequency of Treatment Frequency Of Treatment Once a Day Treatment Plan Physical Therapy Treatment Plan Bed Mobility Training,Transfer Training,Gait Training, Therapeutic Exercise,Balance Retraining,Discharge Planning, Hot or Cold Pack,Neuromuscular Re-ed,Coordination Retraining Other Recommendations and Next Treatment bed mobility, sitting balance, Focus transfers, gait with FWW and chair follow if able Recommendations To Nursing Amount of Assist Needed 2 Person Assist,Mechanical Lift Discharge Recommendations PT Discharge Recommendations SNF Rehab Transportation Needs at Discharge Wheelchair/Cabulance
--- NOTE | 2019-10-25 13:05 | OT.IP.EVAL ---
Current Diagnoses Chronic atrial fibrillation, unspecified (10/24/19) Past Medical History (Last Updated 10/25/19 @ 00:39 by OWEN Kirkland) Aortic aneurysm (Acute) CHF (congestive heart failure) (Inactive) Chronic atrial fibrillation (Acute) Chronic ulcer of leg (Acute) Diabetes type 2, controlled (Acute) Gastric bleed (Acute) Hyperlipidemia (Acute) Hypertension (Acute) PAD (peripheral artery disease) (Acute) Surgical History (Last Updated 10/25/19 @ 00:40 by OWEN Kirkland) History of esophagogastroduodenoscopy (EGD) (Acute) History of femoropopliteal bypass (Acute) Occupational Therapy Inpatient Evaluation/Re-Eval M1 PT/OT-IP Prior Functional Status Start: 10/25/19 13:33 Freq: NEEDED Status: Active Protocol: Document 10/25/19 12:47 [facility] (Rec: 10/25/19 13:45 [facility] [id number]) Medical Review Prior Functional Status Medical History Reviewed Yes Communication Pt is able to make needs known . Mobility and Gait Pt has limited mobility with use of 4WW. She has had recent difficulty getting in and out of bed. She uses a wheelchair for mobility when she attends regular wound care appointments at this hospital. Pt's daughter has been assisting the pt to lift her legs for stair navigation to access her home. Activities of Daily Living and IADL's Pt's daughter, Vinita, provides assist for dressing tasks. She provides SBA and help with washing pt's back when she is able to shower but this has been limited lately due to wound dressings. Vinita states the pt is independent with toilet hygiene but that she provides assist to transfer to and from the toilet. She uses a BSC at night or when she is particularly weak. Prior Functional Level (Other details) Pt's daughter, Vinita, is pt's ELDA caregiver with 50 hours per month. Pt currently receiving home services through [facility]. Social History Household Members children Living Arrangements Apartment/Condo Number of Stairs To Enter/Railing? 2 JON[address] the building with bilateral rails + 2 steps inside the building to her apartment. Home Environment Standard Height Toilet,Tub/ Shower Home Equipment Front Wheel Walker,Four Wheel Walker,Straight Cane,Bedside Commode,Raised Toilet Seat w/ Armrests,Shower Seat without Backrest,Grab Bars In Shower Additional Social History Comment Pt lives with her daughter, Vinita, who provides form builder helper caregiver assist. They identify one other relative ( sister?) in [place] but they are unable to visit due to border restrictions. M2 OT-IP Current Condition Start: 10/25/19 13:33 Freq: Status: Active Protocol: Document 10/25/19 12:47 [facility] (Rec: 10/25/19 13:45 [facility] [id number]) Occupational Therapy Current Condition Current Condition Evaluation Date 10/25/19 Treatment Diagnosis A-fib with RVR, exacerbation of CHF, decreased mobility and self care Diagnosis Onset Date 10/24/19 M3 OT- IP Subjective and Pain Start: 10/25/19 13:33 Freq: Status: Active Protocol: Document 10/25/19 12:47 [facility] (Rec: 10/25/19 13:45 [facility] [id number]) OT- Subjective Occupational Therapy Visit Type Type Initial Evaluation Visit Start Time 12:47 Visit Stop Time 13:05 Total Visit Minutes 18 Occupational Therapy Visit Comments Patient Comments Pt wanting to get back to bed. Patient/Caregiver Goals To get stronger. OT Pain Assessment Pain When Pain Assessed At Rest Pain Present Pain Present Denied Pain M4 OT- IP ADL's Start: 10/25/19 13:33 Freq: Status: Active Protocol: Document 10/25/19 12:47 [facility] (Rec: 10/25/19 13:45 [facility] [id number]) OT [id number] Comments OT Self-Feeding Comments NOt at meal time. OT ADL-Grooming Comments OT Grooming Comments Not performed too tired. OT ADL-Dressing General Eval Lower Body Dressing Ability Total Assistance OT ADL-Toileting General Evaluation Toileting Ability Total Assistance Areas Needing Assistance Manage Clothing,Perform Perineal Hygiene Comments OT Toileting Comments Bearden in place, dependent for hygiene and brief change in bed. M5 OT- IP IADL's Start: 10/25/19 13:33 Freq: Status: Active Protocol: Document 10/25/19 12:47 [facility] (Rec: 10/25/19 13:45 [facility] [id number]) OT-Instrumental Activities of Daily Living Medication Management Medication Management Caregiver Administers Money Management Money Management Caregiver Provides Assistance Meal Preparation Meal Preparation Caregiver Provides Assist Ms Sql Dba Ms Sql Dba Caregiver Provides Assist M6 OT- IP Functional Cognition Start: 10/25/19 13:33 Freq: Status: Active Protocol: Document 10/25/19 12:47 [facility] (Rec: 10/25/19 13:45 [facility] [id number]) Cognitive Factors Limiting Selfcare Function Cognitive Ability Level of Alertness Alert Patient Orientation Name,Place Attention Span Ability Capable of Focused Attention, Capable of Sustained Attention Ability to Follow Commands Able to Follow One Step Commands Cognitive Comments Cognitive Assessment Comments Pt very tired but able to follow 1-2 step commands appropriately at this time for bed mobility and transfer needs. OT- Vision and Hearing OT- Hearing Assessment OT- Hearing Assessment WFL M7 OT- IP Mobility and Balance Start: 10/25/19 13:33 Freq: Status: Active Protocol: Document 10/25/19 12:47 [facility] (Rec: 10/25/19 13:45 [facility] [id number]) OT- Bed Mobility Assessment Sit to Supine Sit to Supine Assist Moderate Assistance,Maximum Assistance,2 Person Assistance OT-Transfer Assessment Sit to and From Stand Sit to and from Stand Moderate Assistance,2 Person Assistance Transfers Transfer Ability Moderate Assistance,2 Person Assistance Technique Transfer Destination Bed,Chair Devices Transfer Assistive Devices Gait Belt,Front Wheeled Walker Comments Mobility Comments MODA X 2 to stand and assist for balance , guide FWW and assist to help weight shift so able to move her LLE. Assist x2 to get from sit to supine. OT- Gait Assessment Comments Gait Ability Comments Transfer only at this time. OT- Balance Assessment Sitting Balance and Reactions Static Sitting Balance Ability Fair Standing Balance and Reactions Static Standing Balance Ability Poor M8 OT- IP Objective Assessments Start: 10/25/19 13:33 Freq: Status: Active Protocol: Document 10/25/19 12:47 [facility] (Rec: 10/25/19 13:45 [facility] [id number]) OT Gross Range of Motion Upper Extremity Range of Motion Assessment Bilaterally Impaired OT Strength Comments Strength Comments BUE strength 3-/5 to 3+/5 from proximal to distal. OT-Muscle Tone Assessment Muscle Tone WNL Yes M9 OT- IP Assessment and Plan Start: 10/25/19 13:33 Freq: Status: Active Protocol: Document 10/25/19 12:47 [facility] (Rec: 10/25/19 13:45 [facility] [id number]) OT Summary Assessment and Plan Potential Rehabilitation Potential Good Analytic Complexity at Evaluation Low Summary OT Impairments Range of Motion,Strength, Balance,Functional Mobility, Grooming,Dressing,Toileting, Bathing,Toilet Transfers, Shower Transfers,Activity Tolerance Progress Towards Goals Slow Progress due to Medical Issues,Slow Progress due to Activity Tolerance Assessment Summary Pt low complexity and here for A-fib RVR and exacerbation of CHF and now needing two person asisst for all mobility and ADL needs. Pt at this time would benefit from skilled rehab to help regain her strength, activity tolerance so able to get back to prior level of care. Goals Self-Feeding Goal Independent Grooming Goal Independent Dressing Goal Moderate Assistance Toileting Goal Independent Bathing Goal Standby Assistance Toilet Transfer Goal Independent Shower Transfer Goal Standby Assistance Patient/Caregiver Education Goal Caregiver Independent Assisting Patient Days to Meet Goals 10 Frequency of Treatment Frequency Of Treatment Once a Day Treatment Plan OT Treatment Plan ADL Training,Functional Mobility,Patient/Family Education,Discharge Planning Other Treatment Recommendations and Next Transfer to [facility] with MODA X 1 Treatment Focus and FWW. Discharge Recommendations OT Discharge Recommendations SNF Rehab Home Equipment Needs defer to SNF Transportation Needs at Discharge Wheelchair/Cabulance
--- NOTE | 2019-10-25 16:10 | DIET.PN ---
Dietary Progress Note Assessment: 73y F admitted to medicine service for atrial fibrillation with rapid ventricular response and exacerbation of chronic heart failure referred to nutrition for unhealing wounds c Lyndon Score 14. Pts daughter, Vinita in room during interview. Pt was overwhelmed c conversation so daughter and I moved into hallway with pts permission. Pts daughter is medical device and expressed several times being exhausted and doing everything. Pt's daughter inquiring about if pt's ulcers are healed in her stomach so she can eat different foods (?) Usual Day: B: Special K cereal c 2% milk and V8 Fusion L: can of cream of ___ soup D: spaghetti c clam/marinara/angela sauce Sn: cheese and crackers or cookie and ice cream Pt recently started drinking one ONS Boost/d. Protein: Per pt's daughter, pt will not eat tofu, peanut butter, or beans, but daughter cannot have beef, pork, eggs, fish. Pts daily protein intake is meeting ~50% of needs c multiple barriers including food insecurity and limited items which both housemates can and will consume. Vitamin A: Pt eating little to no Vitamin A foods c no supplementation. Vitamin C: Pt eating little to no Vitamin C but does take 500mg supplement daily. Zinc: Pt eats little beef, pork, beans but does take 25 mcg supplement daily. HT: 172.7cm WT: 92.4kg BMI: 31 MNA: 10 @risk for maln Lyndon: 14 (high risk for skin breakdown, wounds) Labs: hgb 9.1 L, Cr 1.3 H, eGFR 40.2 L, A1c 6.4 H, TSH 6.41 H Nutrition Diagnosis: chronic unhealing wounds r/t inadequate intake of skin supporting foods (PRO, Vit A, C, Zinc) aeb pt seen regularly at wound care c hyperbaric tx and 20h daily home infusions of Unasyn, pt admitted c anasarca up to ribs, food recall low in skin supporting foods, pt food insecure on food benefits (EBT). Interventions: 1. Encouraged pt's daughter to purchase foods which will support wound healing including high pro foods and orange fruits and veggies in addition to current supplementation. Pt enjoys yogurt and could add this in. 2. Recc ONS Hasmukh BID and ONS Ensure once daily to support wound healing. Readiness for learning/implementation is low at this time, but will check back throughout hospitalization to support pt and intake of foods for wound healing. EER: 92g PRO (1g/kg wounds/renal) Monitoring/Evaluations: f/u tomorrow c teaching
[2019-10-25] MEDS: INSULIN ASPART 100 UNIT/ML INSULN PEN SUBCUT (16:58)
--- NOTE | 2019-10-25 17:49 | PM.PN.1 ---
Subjective Subjective Date Patient Seen: 10/25/19 Interval history: Xochitl Earl is a 73-year-old female who appears older than her stated age with a past medical history significant for CVAs with residual left-sided weakness, hypertension, hyperlipidemia, chronic atrial fibrillation (anticoagulated only with aspirin due to significant GI bleed in July 2019), pulmonary hypertension, diabetes mellitus type II, non-insulin using, and peripheral vascular disease of bilateral lower extremities with multiple stents and fem-pop bypass to left lower extremity with chronic leg wounds on IV antibiotics, receiving hyperbaric chamber therapy and followed closely by wound care who presented to the ED with worsening generalized weakness and lower extremity swelling. The patient is resting in bed comfortably. Atrial fibrillation is controlled with HR 70-90's. Patient reports swelling slightly improved. She denies shortness of breath, orthopnea, and PND. She inquires regarding a topical ointment that is to be applied daily per wound care clinic previous orders. Plan to coordinate nursing wound care with wound care clinic and continue previous wound care orders and dressing changes. She continues to feel extremely weak. She has no other complaints and denies headache, chest pain, abdominal pain, nausea, vomiting, fever, chills, dysuria, diarrhea or constipation. She is voiding via Bearden catheter without difficulty. She has not had a BM since admission and an as needed regimen is ordered. Plan for physical and occupational therapy evaluation and treatment. Exam Vital Signs (past 8 hours): - 10/25/19 12:00 10/25/19 15:00 10/25/19 15:15 Temperature 97.5 F L Pulse Rate 97 H 88 92 H Respiratory Rate 14 7 L 20 Blood Pressure 114/52 L Pulse Oximetry 96 95 96 10/25/19 15:30 10/25/19 15:45 10/25/19 16:00 Temperature 97.5 F L Pulse Rate 93 H 86 80 Respiratory Rate 22 14 14 Blood Pressure 89/53 L 89/53 L Pulse Oximetry 98 64 L 72 L 10/25/19 16:15 Temperature Pulse Rate 80 Respiratory Rate 19 Blood Pressure Pulse Oximetry 80 L Oxygen Delivery Method Nasal Cannula Oxygen Flow Rate 2 Narrative Exam Narrative: General: Elderly female sitting in bed and in no acute distress, appears older than stated age, frail, and weak, appropriately interactive HEENT: Normocephalic, atraumatic. External ears without defect. Pupils equal, round, and reactive to light. Anicteric sclerae, moist conjunctivae, and no lid lag. Oropharynx free of erythema and cobble stoning with moist mucosa. Neck: Supple with full range of motion. No jugular venous distension. No lymphadenopathy or thyromegaly. Cardiovascular: Regular rate and rhythm without murmurs, rubs, or gallops appreciated Pulmonary: Diminished throughout but clear to auscultation bilaterally with fine bibasilar crackles. No wheezes or rhonchi. Normal respiratory effort with no use of accessory muscles. Abdomen: Soft, mild distension, nontender, bowel sounds present. Extremities: No clubbing or cyanosis. Anasarca with dependent edema to chest wall. Upper body muscle wasting. Lower extremity chronic wounds wrapped with dressings C/D/I. Skin: Normal temperature, turgor, and texture; no rash, ulcers, or subcutaneous nodules appreciated. Neurological: Cranial nerves grossly intact. No focal neurological deficits. Generalized weakness. Psychiatric: Normal mood and affect. Alert and oriented to person, place, and time. Probable mild cognitive impairment with short term memory deficit. Objective Labs Result Diagrams: 10/26/19 04:35 10/26/19 04:35 Labs: Laboratory Results - last 24 hr 10/24/19 10/24/19 10/24/19 12:50 18:00 20:35 WBC RBC Hgb Hct MCV MCH MCHC RDW Plt Count Neut % (Auto) Lymph % (Auto) [place] % (Auto) Eos % (Auto) Baso % (Auto) Neut # (Auto) Lymph # (Auto) [place] # (Auto) Eos # (Auto) Baso # (Auto) Sodium Potassium Chloride Carbon Dioxide BUN Creatinine Estimated GFR BUN/Creatinine Ratio Glucose Hemoglobin A1c Calcium Magnesium Iron TIBC % Saturation Transferrin Total Creatine Kinase CK-MB (CK-2) CK-MB (CK-2) Rel Index Troponin I 0.040 H Triglycerides Cholesterol LDL Cholesterol, Calc HDL Cholesterol Procalcitonin Free T4 1.09 Nasal Screen MRSA (PCR) Negative for mrsa 10/24/19 10/25/19 10/25/19 20:35 04:20 04:20 WBC 5.5 RBC 3.31 L Hgb 9.1 L Hct 29.1 L MCV 88.1 MCH 27.4 MCHC 31.1 RDW 19.5 H Plt Count 144 L Neut % (Auto) 64.3 Lymph % (Auto) 22.0 L [place] % (Auto) 11.8 Eos % (Auto) 1.2 L Baso % (Auto) 0.7 Neut # (Auto) 3500 Lymph # (Auto) 1200 [place] # (Auto) 600 Eos # (Auto) 100 Baso # (Auto) 0 Sodium 139 Potassium 3.9 Chloride 104 Carbon Dioxide 29 BUN 36 H Creatinine 1.30 H Estimated GFR 40.2 L BUN/Creatinine Ratio 27.7 H Glucose 104 Hemoglobin A1c Calcium 8.3 L Magnesium 2.0 Iron TIBC % Saturation Transferrin Total Creatine Kinase CK-MB (CK-2) CK-MB (CK-2) Rel Index Troponin I Triglycerides 81 Cholesterol 76 L LDL Cholesterol, Calc 41 HDL Cholesterol 19 L Procalcitonin 0.05 Free T4 Nasal Screen MRSA (PCR) 10/25/19 10/25/19 10/25/19 04:20 04:20 04:20 WBC RBC Hgb Hct MCV MCH MCHC RDW Plt Count Neut % (Auto) Lymph % (Auto) [place] % (Auto) Eos % (Auto) Baso % (Auto) Neut # (Auto) Lymph # (Auto) [place] # (Auto) Eos # (Auto) Baso # (Auto) Sodium Potassium Chloride Carbon Dioxide BUN Creatinine Estimated GFR BUN/Creatinine Ratio Glucose Hemoglobin A1c 6.4 H Calcium Magnesium Iron 28 L TIBC 329 % Saturation 9 L Transferrin 253 Total Creatine Kinase 33 CK-MB (CK-2) TNP CK-MB (CK-2) Rel Index TNP Troponin I 0.042 H Triglycerides Cholesterol LDL Cholesterol, Calc HDL Cholesterol Procalcitonin Free T4 Nasal Screen MRSA (PCR) Assessment & Plan Assessment & Plan narrative: Xochitl Earl is a 73-year-old female who appears older than her stated age with a past medical history significant for CVAs with residual left-sided weakness, hypertension, hyperlipidemia, chronic atrial fibrillation (anticoagulated only with aspirin due to significant GI bleed in July 2019), diabetes mellitus type II, non-insulin using, peptic ulcer disease with recent GI bleed and peripheral vascular disease of bilateral lower extremities with multiple stents and fem-pop bypass to left lower extremity with chronic leg wounds on IV antibiotics, receiving hyperbaric chamber therapy and followed closely by wound care who presented to the ED with worsening generalized weakness and lower extremity swelling. 1. Severe right sided heart failure due to decompensated cor pulmonale and pulmonary hypertension, present on admission. Active. -Patient presented with severe anasarca and dependent edema to abdomen/chest wall. -Chest x-ray demonstrated cardiogenic pulmonary edema and left pleural effusion. -Chest CTA demonstrated and significant interval worsening of fluid status is present now with generalized anasarca, bilateral pleural effusions, and ascites. The pleural effusions are moderate, the anasarca is moderately severe, the ascites is mild. Cardiomegaly has advanced, and mild pulmonary edema appears present in addition to atelectasis from adjacent pleural effusions. -ProBNP is 6430. -Repeat echocardiogram demonstrated normal left ventricular size with low normal sysotlic function (EF 50-55%), right ventricle is moderately dilated, right ventricular systolic function is severely reduced, interventricular septum is flattened, consistent with a right ventricular pressure overload condition, both atria are severely dilated, mild to moderate mitral regurgitation, severe tricuspid regurgitation, aortic arch is severely enlarged at 5.2cm, mild luminal irregularity and echogenicity in the abdominal aorta, suggestive of aortic atherosclerotic disease, IVC is dilated (diameter is greater than 2.1 cm) and it collapses less than 50% with a sniff suggestive of high right atrial pressure of 15 mm Hg, moderate sized bilateral pleural effusions present. Compared to the Echo done 11/16/2018, hypervolemia is much worse on this study. -Received 40 mg IV Lasix in ED. Continue furosemide 40 mg IV twice daily. -Continue to monitor strict I&Os. Net -1 L. -Continue to monitor electrolytes closely while diuresing and replete as necessary. Goal K > 4.0 and Mg > 2.0. -Plan to consult cardiology for help with heart failure management and diuresis and palliative care to discuss goals of care and overall poor prognosis with high mortality. 2. Chronic atrial fibrillation with rapid ventricular response, present on admission. RVR resolved. -Patient denies chest pain or palpitations and is unaware of her rhythm. -EKG demonstrates atrial fibrillation with RVR without ischemic changes such as ST elevation or depression. -CHADS2 Vasc 7, however, patient had severe life-threatening GI bleed due to peptic ulcer disease from combined gastro duodenal ulcers in July 2019. Continue dual anti-platelet therapy including aspirin 81 mg and Plavix 75 mg daily and Protonix 40 mg twice daily. -Troponin normal at 0.034. TSH is elevated at 6.41 however free T4 is normal at 1.09. Potassium is 4.2 and magnesium is 2.0. -Received diltiazem 10 mg x 2 and metoprolol tartrate 50 mg PO with improvement in heart rate to the 90s to 100s. -Continue home diltiazem 120 mg daily and metoprolol tartrate 50 mg twice daily. May need to consider amiodarone to control heart rate as blood pressures are low normal with severe right-sided heart failure and IV diuresis. 3. Acute kidney injury, present on admission. Active. -Secondary to hypervolemia and hypoperfusion. -Initial creatinine 1.35. Baseline creatinine 0.95 on 09/26/2019. -Avoid nephrotoxic agents, optimize renal perfusion, and renally dose medications. -Continue to monitor creatinine daily. 4. Acute on chronic generalized weakness, chronic, present on admission. Stable. -Secondary to right-sided heart failure and severe anasarca. -Continue physical and occupational therapy evaluation treatment. 5. Peripheral vascular disease, status post multiple left-sided stents and left femoral-popliteal bypass, with infected chronic wounds of bilateral lower legs, present on admission. Stable. -Followed closely by wound care Dr. Willoughby. -Continue Unasyn 12 g in 400 cc infusing at 20 cc/hour and wound care per wound care standing orders. 6. History of CVA with left-sided weakness and hyperlipidemia, chronic, present on admission. Stable. -Continue dual anti-platelet therapy with aspirin 81 mg daily and Plavix 75 mg daily with Protonix 40 mg twice daily for GI prophylaxis and atorvastatin 20 mg daily at bedtime. 7. Hypertension, chronic, present on admission. Stable. -Received amlodipine 5 mg daily, clonidine 0.1 mg twice daily, diltiazem 120 mg daily, diuresis as above, losartan 100 mg daily, metoprolol tartrate 50 mg twice daily. Plan to hold amlodipine and losartan as blood pressure has been low normal this afternoon with diuresis. Continue diuresis as above and rate control medications with metoprolol and diltiazem. 8. Peptic ulcer disease with recent GI bleed, chronic, present on admission. Presumed stable. -Patient had threatening GI bleed in July 2019 at [facility]. -Continue Protonix 40 mg twice daily and Carafate 1 g 4 times daily. 9. Diabetes mellitus type 2, non-insulin using, chronic, present on admission. Stable. -Hemoglobin A1C is 6.4% indicative of excellent glycemic control. -Held metformin. -Continue ACHS blood glucose checks and low-dose correctional insulin. -Continue hearthealty/carbohydrate consistent diet. 10. Normocytic normochromic anemia, chronic, present on admission. Stable. -Hemoglobin 9.7 which is stable and at baseline. No overt signs of bleeding. -Iron panel demonstrated mild iron deficiency and anemia of chronic disease. B12 and folate pending. 11. Aortic aneurysm, chronic, present on admission. Stable -CTA chest, abdomen and pelvis demonstrated severe aortic aneurysmal dilation with maximal aortic transverse dimension is 5.1 cm without dissection and without definite change. -Patient is not a surgical candidate due severe vascular disease and multiple comorbidities. Code status: Full code, patient designates Vinita Cordero to be her surrogate decision maker. VTE prophylaxis: SQ Heparin Disposition: Patient status tenuous and remains hospitalized.
--- NOTE | 2019-10-25 21:24 | PC.NURSE ---
2123 Provider SANDHYA Lazar updated on pt BP 98/60 with MAP of 73 HR 95 pt asymptomatic. Orders to hold Clonidine and Lasix, will continue to monitor pressure closely. Bed low and locked, call light within reach.
[2019-10-26] VITALS (48 sets, daily range): BP systolic 63–129; BP diastolic 41–97; PULSE 38–135; RESP 12–41; TEMP 31.7–36.9; O2SAT 69–98
[2019-10-26] MEDS: OXYCODONE IR 5 MG TABLET PO (00:52)
[2019-10-26] MEDS: cloNIDine 0.1 MG TABLET PO (04:57)
[2019-10-26 05:44] LABS: Albumin 2.6 g/dL (3.5-5.0); Albumin Globulin Ratio 0.9 (1.0-2.8); Alkaline Phosphatase 61 U/L (38-126); Aspartate Aminotransferase 18 IU/L (14-36); BUN Creatinine Ratio 28.1 (6-22); Bilirubin Total 0.6 mg/dL (0.2-1.3); Blood Urea Nitrogen 41 mg/dL (7-17); Calcium 8.5 mg/dL (8.4-10.2); Carbon Dioxide 29 mmol/L (22-32); Chloride 106 mmol/L (98-107); Estimated Glomerular Filt Rate 35.1 mL/min (>60); Globulin 2.9 g/dL (1.7-4.1); Glucose 97 mg/dL (80-110); HEMOLYSIS < 15 (0-50); Magnesium 2.1 mg/dL (1.6-2.3); Potassium 4.8 mmol/L (3.4-5.1); Sodium 140 mmol/L (137-145); Total Protein 5.5 g/dL (6.3-8.2)
[2019-10-26 05:48] LABS: Basophils Absolute Auto 200 /uL (0-100); Basophils Percent Auto 3.1 % (0-2); Eosinophils Absolute Auto 0 /uL (0-450); Eosinophils Percent Auto 0.3 % (2-4); Hematocrit 28.8 % (36-46); Lymphocytes Absolute Auto 1000 /uL (1100-4500); Lymphocytes Percent Auto 16.1 % (25-40); Mean Corpuscular HGB Conc 31.1 % (30-36); Mean Corpuscular Hemoglobin 27.7 PG (26-34); Mean Corpuscular Volume 89.2 fL (80-100); Monocytes Absolute Auto 600 /uL (0-900); Monocytes Percent Auto 9.9 % (3-14); Neutrophils Absolute Auto 4400 /uL (1500-7000); Neutrophils Percent Auto 70.6 % (50-75); Platelet Count 141 X10^3/uL (150-400); Red Blood Cell Count 3.23 X10^6/uL (4.0-5.2); Red Cell Distribution Width 19.6 % (11.6-14.8); White Blood Cell Count 6.2 X10^3/uL (4.5-11.0)
[2019-10-26 05:49] LABS: Add Manual Diff / Slide Review SLIDE REVIEW; Alanine Aminotransferase < 4 IU/L (<35)
--- NOTE | 2019-10-26 06:17 | DI.CT.S_ITS ---
PROCEDURE: CT ANGIO HEAD AND NECK INDICATIONS: mental status changes, possible cerebrovascular accident TECHNIQUE: Pre-contrast 4.5 mm thick sections acquired from the foramen magnum to the vertex. After the administration of intravenous contrast, 1 mm thick sections acquired from the aortic arch through the [place] of [place]. Post-contrast 4.5 mm thick sections then re-acquired from the foramen magnum to the vertex. 3-dimensional qigyeuc-yegdetmpx-neejakeoaz (MIP) and/or volume rendering reformats were acquired of the central intracranial vasculature and neck separately. COMPARISON: [facility], CT, CT ANGIO CHEST ABDOMEN PELVIS, 10/24/2019, 14:49. FINDINGS: Image quality: Excellent. BRAIN: CSF spaces: Ventricles are stable in size and shape. Basal cisterns are patent. No extra-axial fluid collections. Brain: No midline shift. No intracranial bleeds or masses. Hernandez-white matter interface appears intact. Stable age related senescent changes and diffuse cortical volume loss. Stable changes of chronic small vessel ischemic disease involving the bilateral periventricular white matter. Redemonstration of small bilateral lacunar infarcts and left cerebellar infarction. These are better characterized on dedicated noncontrast CT of the head obtained earlier same day. Please see separate report for further details. Skull and face: Calvarium and facial bones appear intact, without suspicious lesions. Orbits appear normal. Sinuses: Sinuses and mastoids are clear. HEAD CT ANGIOGRAPHY: Anterior circulation: Intracranial internal carotid arteries are patent bilaterally with atherosclerotic calcifications within the intracranial segments. No high-grade stenosis identified. No occlusion. The flow within the paired anterior cerebral arteries is normal and symmetric. The flow within the middle cerebral arteries appear patent. The anterior communicating artery is seen. No aneurysms are seen. Posterior circulation: Visualized portions of the vertebral arteries are patent, and join to form a normal appearing basilar artery. Flow within the posterior cerebral arteries is normal and symmetric. No aneurysms are seen. NECK CT ANGIOGRAPHY: Carotid system: The great vessels demonstrate a conventional anatomy as they arise from the aortic arch. The origins of the common carotid arteries appear patent. Scattered atherosclerotic calcifications throughout the extracranial carotid arterial vasculature. The common carotid arteries demonstrate normal caliber and courses. There are moderate atherosclerotic calcifications at the bilateral carotid bifurcation without hemodynamically significant stenosis. No evidence for occlusion, dissection, or aneurysmal dilatation. The internal carotid arteries are patent without hemodynamically significant stenosis or occlusion. Posterior circulation: The origins of the vertebral arteries both appear patent without hemodynamically significant stenosis. The more superior extracranial portions of both vertebral arteries also demonstrate normal courses and calibers. They join to form a normal appearing basilar artery. Soft tissues: Large right thyroid nodule measuring approximately 3.5 x 2.6 cm. No suspicious adenopathy. Remainder of the visualized neck soft tissues demonstrate no suspicious abnormalities. Moderate bilateral pleural effusions. Aneurysmal dilatation of the aortic arch, recently evaluated in not significantly changed. Pulmonary emphysematous changes of the bilateral lung apices. Bones: No suspicious bony lesions. Multilevel cervical spondylosis of the imaged spine. Minimal anterolisthesis of C4 on C5. No acute compression fractures. IMPRESSION: 1. Moderate atherosclerosis of the imaged intracranial and extracranial carotid arterial vasculature without occlusion, dissection, aneurysm, or hemodynamically significant stenosis. 2. Negative CT angiogram of the intracranial arterial vasculature. 3. Redemonstration of thoracic aortic aneurysm which was recently evaluated on October 24, 2019. No evidence for significant changes. 4. Moderate bilateral pleural effusions. 5. Large right thyroid lobe nodule measuring up to 3.5 cm in size. Recommend dedicated thyroid ultrasound for further characterization. No significant discrepancy with the night time babysitter radiology preliminary report. Any quantitative measurements of stenosis were performed using NASCET criteria. Dictated by: Gee Ramírez M.D. on 10/26/2019 at 7:50 Approved by: Gee Ramírez M.D. on 10/26/2019 at 8:25
--- NOTE | 2019-10-26 06:18 | DI.CT.S_ITS ---
PROCEDURE: CT HEAD/BRAIN WO CON INDICATIONS: altered mental status, cva TECHNIQUE: Noncontrast 4.5 mm thick angled axial sections acquired from the foramen magnum to the vertex, with coronal and sagittal reformats. For radiation dose reduction, the following was used: automated exposure control, adjustment of mA and/or kV according to patient size. COMPARISON: [facility], CT, HEAD WITHOUT CONTRAST, 09/30/2009, 11:20. FINDINGS: Image quality: Excellent. CSF spaces: Basal cisterns are patent. No extra-axial fluid collections. The ventricles are symmetric in size and shape. Brain: No intracranial bleeds or masses. There is cerebral volume loss for age, with resultant ventricular and sulcal prominence. There are periventricular and deep white matter chronic small vessel ischemic changes. There is intracranial internal carotid artery atherosclerosis. Redemonstration of small chronic bilateral basal ganglial lacunar infarctions as well as remote left cerebellar infarct. Skull and face: Calvarium and visualized facial bones appear intact, without suspicious lesions. Sinuses: Visualized sinuses and mastoids are clear. IMPRESSION: 1. Stable CT evaluation of the head without acute intracranial abnormalities. 2. Stable age related senescent changes and sequela of chronic small vessel ischemic disease. 3. Stable appearance of chronic, small bilateral lacunar infarcts and left cerebellar infarct. Dictated by: Gee Ramírez M.D. on 10/26/2019 at 7:38 Approved by: Gee Ramírez M.D. on 10/26/2019 at 7:47
[2019-10-26 06:19] LABS: Ferritin 19 ng/mL (11-264)
--- NOTE | 2019-10-26 06:48 | P.EN_ITS ---
Event Note Date Patient Seen: 10/26/19 Time Patient Seen: 05:20 Event Note: Code stroke The patient had deteriorating cognitive status throughout the evening with increasing confusion and restlessness consistent with a presentation of delirium. Patient had diminished blood pressure earlier in the evening and Lasix was held. The patient's presentation had slowly deteriorated becoming markedly altered. She was evaluated at 0530 at which time the patient was markedly altered. Requiring tactile stimulus to open her eyes , pupils are equal and reactivewith dysconjugate gaze, eyes move bilaterally cross midline. No ptosis or facial droop. Respiratory pattern is altered long apneic periods followed by gasping breaths. Patient extremities with cogwheel type motion with decreased motion on the left The patient can wiggle toes on the right but not on the left but has comorbid conditions including marked swelling of Bilateral lower extremities left greater than right. FAST Exam: face: Symmetrical arms: Cogwheel motion and drift bilaterally. sensory: Responds to noxious stimulus in all extremities time: Last known normal approximately 11:[address] is ordered however the CT scanner is undergoing a power change management facilitator removed and exam is delayed. Requested Dr. Bui her ER physician to evaluate the patient and agrees with the presentation consistent with stroke. Patient has an NIH score of 15 by my assessment. Patient is hypotensive with blood pressure of 86/53, and receives a 250 cc bolus. The patient had been hypotensive history afternoon and again last night but on stimulation pressure returned into the mid 90s. The patient's nighttime dose of Lasix is held and clonidine 0.1 mg is held in administered later. Patient's transported CT scan for a CT angio of the head and neck as well as a CT of the brain without contrast. The patient's transported down to the scanner on monitor and back without incident. During that time the patient appears to be becoming somewhat more lucid and asking simple questions. Spoke with Dr. Neff at [facility] stroke who indicated no acute CVA is noted on his read over the phone he reports old strokes and no bleed. He indicates her might be a at possible small branch blockage of the basal artery feeding the occipital lobe. He notes that if there is a difference interpretation he defers to the official radiology reading of the films. Awaiting official reading by Radiology. On follow-up with the patient she appears more alert and interactive stating she is hungry returned to baseline.
[2019-10-26 06:51] LABS: Folate 8.6 ng/mL (2.76-20.0); Vitamin B12 429 pg/mL (239-931)
[2019-10-26 06:56] LABS: Anisocytosis 1+
--- NOTE | 2019-10-26 07:04 | PC.NURSE ---
NOC Note: Pt reported pain to BLE, was given PRN Oxycodone at 0100, she reported relief but remained restless, notified SHIPS OR BARGES LOADER of restlessness. Eventually pt when to sleep for a while. Just before 5 am SHIPS OR BARGES LOADER was making rounds, pt was restless with shallow resp, O2 sat difficult to obtain due to cold extremities, pt was having difficulty following directions. SHIPS OR BARGES LOADER evaulated pt, Catapress given at 0500 as instructed. BP was low at start of shift and Providers aware, Pt PB remained low and dropped after the catapress. SHIPS OR BARGES LOADER did further evaluation pt. Pt was taken to CT at 0615.
[2019-10-26] MEDS: SODIUM CHLORIDE 0.9% 500 ML 950 ML IV (07:13)
[2019-10-26 08:38] LABS: PCO2 ABG 67.7 mmHg (35-45); PO2 ABG 84 mmHg (80-100); pH ABG 7.23 (7.35-7.45)
[2019-10-26 08:39] LABS: HCO3 ABG 29 mmol/L (22-26); Oxygen Saturation ABG 94 % (95-100); TCO2 ABG 31 mmol/L (21-31)
[2019-10-26 08:40] LABS: Fractionated Inspired Oxygen 44
[2019-10-26] MEDS: OXYBUTYNIN 5 MG ER TAB PO (08:43)
[2019-10-26] MEDS: HEPARIN 5,000 UNIT/ML VIAL 5000 UNIT SUBCUT (08:43)
[2019-10-26] MEDS: dilTIAZem CD 120 MG CAP PO (08:43)
[2019-10-26] MEDS: ASPIRIN EC 81 MG TABLET PO (08:44)
[2019-10-26] MEDS: GABAPENTIN 600 MG TABLET PO (08:44)
[2019-10-26] MEDS: POTASSIUM CHLORIDE 20 MEQ TAB PO (08:44)
[2019-10-26] MEDS: CLOPIDOGREL 75 MG TABLET PO (08:44)
[2019-10-26] MEDS: FUROSEMIDE 40 MG/4 ML VIAL IV ×2 (08:45→14:18)
[2019-10-26] MEDS: METOPROLOL IR 50 MG TABLET PO (08:46)
[2019-10-26] MEDS: PANTOPRAZOLE 40 MG TABLET PO (08:46)
[2019-10-26] MEDS: SODIUM CHLORIDE 0.9% FLUSH 10 ML IV (08:46)
[2019-10-26] MEDS: DOPAMINE HCL IN DEXTROSE 5 % 400 MG/250 ML PLAST..BAG 17.588 MG IV (09:02)
[2019-10-26 09:12] LABS: TSH w/ Reflex to FT4 5.75 uIU/mL (0.47-4.68)
[2019-10-26] MEDS: AMIODARONE 150 MG/100 ML PIGGYBACK 200 MG IV (09:18)
[2019-10-26 09:38] LABS: Free T4, Direct Thyroxine 1.02 ng/dL (0.78-2.19)
[2019-10-26] MEDS: AMIODARONE 360 MG/200 ML PIGGYBACK 33.333 MG IV (09:48)
[2019-10-26 10:30] LABS: HCO3 ABG 29 mmol/L (22-26); PCO2 ABG 67.6 mmHg (35-45); PO2 ABG 47 mmHg (80-100); TCO2 ABG 31 mmol/L (21-31)
[2019-10-26 10:31] LABS: Fractionated Inspired Oxygen 28; Oxygen Saturation ABG 73 % (95-100); pH ABG 7.23 (7.35-7.45)
[2019-10-26 11:08] LABS: pH ABG 7.23 (7.35-7.45)
[2019-10-26 11:09] LABS: Fractionated Inspired Oxygen 60; HCO3 ABG 30 mmol/L (22-26); Oxygen Saturation ABG 95 % (95-100); PCO2 ABG 71.9 mmHg (35-45); PO2 ABG 90 mmHg (80-100); TCO2 ABG 32 mmol/L (21-31)
--- NOTE | 2019-10-26 11:13 | CM.DPC ---
Addendum entered by Dalila Ayala R.N. 10/26/19 13:22: Dr. Villegas indicated that Dr. Coronado is stating that hospice should be expedited as soon as possible. Went ahead and left a message with [facility] In the message, let hospice know that Sirisha Segura is to be coming over for palliative care consult this afternoon. Faxed over face sheet, yesterday's progress note, history and physical, med sheets, labs. On the face reminded them about the palliative care visit today. It is unclear at this time as to when hospice would be able to do an admission, it would start with phone informational visits and consent, after referral is reviewed. Original Note: DCP Cont: Met with patient's daughter, Vinita. She was in tears, overwhelmed. Mentioned palliative care consult, she stated, what's that. Went over role of palliative nurse and establishing goals of care. Daughter stated, you will have to excuse me, I have ADHD, and it's hard to obtain information. Asked her about conversation with hospitalist, and she mentioned, some of it, I can't remember, but I know that my mom's heart is failing. Asked her about patient going home, and mentioned detention as well. Daughter stated, I can probably handle it if she has a hospital bed. Daughter stated that she is the only sibling, but has friends that can help. She also stated that her dad can come up from [place], but he has ADHD/[place]. Daughter has been managing patient at home, and giving her IV antibiotics. Mentioned hospice briefly, and let daughter know that Sirisha Seugra can discuss several options, and go over goals of care with patient had her. Current POLST is DNR with limited interventions. Daughter stated, she should be in her moms room after 3:00. She also gave permission for Sirisha to contact her over the phone. P: DCP to follow closely. Have e-mailed Sirisha Segura and asked her to see patient today, first, as a priority. Dalila Ayala RN/Finished Stock Inspector
--- NOTE | 2019-10-26 11:40 | PT-IP ANOTE ---
Pt on medical hold per nursing stating patient is not appropriate at this time for therapy.
--- NOTE | 2019-10-26 11:40 | OT.IPNOTE ---
Per nursing pt not appropriate for therapy at this time, therefore HOLD for OT.
--- NOTE | 2019-10-26 12:53 | PM.CN ---
History of Present Illness Consult details Chief complaint: weakness, edema Narrative: 73 yo frail W h/o persistent AF, cor pulmonale, AAA, diabetes, and severe PAD with chronic leg wounds admitted with fatigue and worsening. Patient lives with her daughter locally. Over the past several weeks, the patient has harris worsening edema throughout her body to the point that it's been hard for her to get out of bed. She also reports worsening dyspnea. Denies chest pain or syncope. Meds Home Medications and Allergies Home Medications Medication Instructions Recorded Confirmed Type alendronate 70 mg PO QWEEK 10/24/19 10/24/19 History amlodipine 5 mg PO DAILY 10/24/19 10/24/19 History ampicillin-sulbactam 12 g IV DAILY 10/24/19 10/24/19 History ascorbic acid (vitamin C) 500 mg PO DAILY 10/24/19 10/24/19 History aspirin [Adult Low Dose Aspirin] 81 mg PO DAILY 10/24/19 10/24/19 History cholecalciferol (vitamin D3) 25 mcg PO DAILY 10/24/19 10/24/19 History [Vitamin D3] clonidine HCl 0.1 mg PO BID 10/24/19 10/24/19 History diltiazem HCl 120 mg PO DAILY 10/24/19 10/24/19 History furosemide 40 mg PO QAM 10/24/19 10/24/19 History gabapentin 900 mg PO Q8HR 10/24/19 10/24/19 History losartan 100 mg PO DAILY 10/24/19 10/24/19 History metformin 500 mg PO BID 10/24/19 10/24/19 History metoprolol tartrate 50 mg PO BID 10/24/19 10/24/19 History mupirocin calcium 1 applic TOPICAL DAILY 10/24/19 10/24/19 History oxybutynin chloride 5 mg PO DAILY 10/24/19 10/24/19 History oxycodone 5 mg PO QID PRN 10/24/19 10/24/19 History pantoprazole 40 mg PO BID 10/24/19 10/24/19 History potassium chloride 20 meq PO QAM 10/24/19 10/24/19 History sucralfate 10 ml PO QID 10/24/19 10/24/19 History zinc 50 mg PO DAILY 10/24/19 10/24/19 History atorvastatin 20 mg PO DAILY 10/26/19 10/26/19 History Allergies Allergy/AdvReac Type Severity Reaction Status Date / Time No Known Allergies Allergy Verified 10/24/19 12:49 Exam Vital Signs (past 8 hours): - 10/26/19 04:57 10/26/19 08:00 10/26/19 08:30 Temperature 97.8 F Pulse Rate 75 97 H Respiratory Rate 21 Blood Pressure 92/51 L 87/63 L Pulse Oximetry 94 10/26/19 09:00 10/26/19 09:45 10/26/19 10:00 Temperature Pulse Rate 86 125 H Respiratory Rate 21 30 H Blood Pressure 96/56 L 103/75 103/75 Pulse Oximetry 10/26/19 10:36 10/26/19 10:56 10/26/19 11:00 Temperature 97.7 F Pulse Rate 131 H Respiratory Rate 36 H Blood Pressure 103/75 118/69 Pulse Oximetry 92 93 10/26/19 12:00 Temperature Pulse Rate 54 L Respiratory Rate 27 H Blood Pressure 96/67 Pulse Oximetry Fraction of Inspired Oxygen 50 Oxygen Delivery Method BiPAP Oxygen Flow Rate 6 Narrative Exam Narrative: Gen yamileth: chronically ill appearing in mild distress HEET: NCAT, no scleral icterus CV: irregularly irregular, distant heart sounds, 3/6 systolic murmur, JVP 12cm H20, 3+ LE edema bilaterally in her legs Resp: poor aeration, coarse anteriorly Abd: soft, NT Neuro: no facial droop, able to move arms symmetrically Skin: legs wrapped Psych: flat affect Objective Labs Result Diagrams: 10/26/19 04:35 10/26/19 04:35 Labs: Laboratory Results - last 24 hr 10/26/19 10/26/19 10/26/19 04:35 04:35 04:35 WBC 6.2 RBC 3.23 L Hgb 9.0 L Hct 28.8 L MCV 89.2 MCH 27.7 MCHC 31.1 RDW 19.6 H Plt Count 141 L Neut % (Auto) 70.6 Lymph % (Auto) 16.1 L Collier % (Auto) 9.9 Eos % (Auto) 0.3 L Baso % (Auto) 3.1 H Neut # (Auto) 4400 Lymph # (Auto) 1000 L Collier # (Auto) 600 Eos # (Auto) 0 Baso # (Auto) 200 H RBC Morphology Not Reportable Anisocytosis 1+ H ABG pH ABG pCO2 ABG pO2 ABG HCO3 ABG Total CO2 ABG O2 Saturation ABG Base Excess FiO2 Sodium 140 Potassium 4.8 Chloride 106 Carbon Dioxide 29 BUN 41 H Creatinine 1.46 H Estimated GFR 35.1 L BUN/Creatinine Ratio 28.1 H Glucose 97 Calcium 8.5 Magnesium 2.1 Ferritin 19 Total Bilirubin 0.6 AST 18 ALT < 4 Alkaline Phosphatase 61 Total Protein 5.5 L Albumin 2.6 L Globulin 2.9 Albumin/Globulin Ratio 0.9 L Vitamin B12 429 Folate 8.6 TSH Free T4 10/26/19 10/26/19 10/26/19 04:35 08:11 09:42 WBC RBC Hgb Hct MCV MCH MCHC RDW Plt Count Neut % (Auto) Lymph % (Auto) Collier % (Auto) Eos % (Auto) Baso % (Auto) Neut # (Auto) Lymph # (Auto) Collier # (Auto) Eos # (Auto) Baso # (Auto) RBC Morphology Anisocytosis ABG pH 7.23 L* 7.23 L* ABG pCO2 67.7 H* 67.6 H* ABG pO2 84 47 L* ABG HCO3 29 H 29 H ABG Total CO2 31 31 ABG O2 Saturation 94 L 73 L* ABG Base Excess 1.0 1.0 FiO2 44 28 Sodium Potassium Chloride Carbon Dioxide BUN Creatinine Estimated GFR BUN/Creatinine Ratio Glucose Calcium Magnesium Ferritin Total Bilirubin AST ALT Alkaline Phosphatase Total Protein Albumin Globulin Albumin/Globulin Ratio Vitamin B12 Folate TSH 5.75 H Free T4 1.02 10/26/19 10:56 WBC RBC Hgb Hct MCV MCH MCHC RDW Plt Count Neut % (Auto) Lymph % (Auto) Collier % (Auto) Eos % (Auto) Baso % (Auto) Neut # (Auto) Lymph # (Auto) Collier # (Auto) Eos # (Auto) Baso # (Auto) RBC Morphology Anisocytosis ABG pH 7.23 L* ABG pCO2 71.9 H* ABG pO2 90 ABG HCO3 30 H ABG Total CO2 32 H ABG O2 Saturation 95 ABG Base Excess 2.0 FiO2 60 Sodium Potassium Chloride Carbon Dioxide BUN Creatinine Estimated GFR BUN/Creatinine Ratio Glucose Calcium Magnesium Ferritin Total Bilirubin AST ALT Alkaline Phosphatase Total Protein Albumin Globulin Albumin/Globulin Ratio Vitamin B12 Folate TSH Free T4 Assessment & Plan Assessment & Plan narrative: # Cor Pulmonale: patient has end stage cor pulmonale based on echo 10/26/2019. Etiology is pulmonary hypertension from life long smoking (quit recently). She is hypervolemic on exam and diuersis has been challenging even with IV furosemide. Patient educated about her condition. Plan: - Continue IV dopamine gtt (strted 10/26/2019 AM) to aid in diuresis - Increase furosemide from 40mg IV bid to 40mg IV tid # HARMEET: probably due cardiorenal syndrome. She also received IV contrast yesterday and overnight for CT scans and I am very concerned that she will get HARMEET from it. Plan: - Diuresis as above # Persistent AF: chronic. Recent GIB 09/2019. - Continue amiodarone IV gtt while the patient is on dopamine IV gtt - No anticoagulation due to recent GIB # PAD with severe chronic wounds requiring half-way antibiotics. - Defer to the hospitalist. # AAA: large. Not a candidate for EVAR or surgery. # Goals of Care: Patient is very frail with severe multiple medical problems. I am concerned that she is failing medical therapy. Given her life expectancy is likely less than 6 months (probably more like few more weeks), I would recommend transitioning to hospice HF. She can continue with PO diuretics while being on hospice (if it helps) and add morphine as needed for comfort. - Recommend palliative care consult for help with transitioning to hospice HF Total critical care time 80 minutes managing this patient's end stage cor pulmonale, speaking with the patient and daughter (Vinita), and coordinating care with Dr. Moriah Villegas.
--- NOTE | 2019-10-26 13:44 | PM.CN.PC.1 ---
History of Present Illness Consult details Date Patient Seen: 10/26/19 Time Patient Seen: 15:00 Chief complaint: weakness, edema Reason for consult: Palliative Medicine Consultation Requesting provider: Moriah Villegas Narrative: Palliative medicine consultation received from Dr. Villegas regarding this 73F medically frail woman, Xochitl Lynne, who presented to the emergency department after experiencing worsening weakness and an inablity to care for self in the home. Her daughter Vinita lives with the patient and has been her mother's caregiver for may years. Patient expressed that she has been experiencing worsening edema in her legs, trunk, and arms and that this had progressed to the point where she was having difficulty getting out of bed. Additionally, she c/o worsening shortness of breath. She denied syncope, chest pain, chest pressure. She was found to have severe right sided heart failure from underlying lung disease, a large aortic aneurysm, anasarca refractory to aggressive diuretics, HARMEET in the setting of CKD. She was taken off of coumadin due to a GIB for underlying arial fibrillation, and is noted to have chronic, severe wounds from PAD. She was significantly hypotension upon admission and started on a Dopamine drip. Amiodarone was initiated when patient presented with Atrial fibrillation with RVR. Patient was evaluated by cardiology, and found to not be a candidate for EVAR or surgery. He notes that she is failing medical therapy and recommended the patient consider de-escalation of aggressive care in favor of more comfort oriented goals of care. Palliative medicine is consulted in the case to help the patient and her family better understand her diagnosis, prognosis, and options for care. Of note, patient experienced neurological changes overnight and a CODE STROKE was called. She has undergone CTA head and neck, as well as CT of chest, abdomen and pelvis, which have contributed to her renal failure (contrast). Attending physician indicates a clear lack of insight from both patient and her daughter regarding her general poor health, and her very poor custodial prognosis. Both attending physician and Cardiology recognize a window of time with the patient may tolerate discharge home in the care of a community-based hospice agency. Alternatively, patient may choose deescalation of aggressive care here at the hospital in favor of comfort care, and would likely within hours to days without life supporting medications such as amiodarone and dopamine. Past medical history: Atrial fibrillation, COPD, chronic diastolic congestive heart failure, CKD Social history: Patient is , lives here in town. Her daughter Vinita lives with and cares for the patient. 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 She has a [employer] background. She enjoys reading and gardening in her spare time but has not been able to do any of these things recurrently due to weakness and a recent left lower leg bypass surgery. She states that she has been failing at home and that she has been unable to get in and out of her bed to the bathroom or even reposition herself, prompting this hospitalization. Because of the patient's profound general decline in clinical status over months, frailty evident by weakness, frequent falls, inability to provide of adequate self care, severe malnutrition (dramatic, unintentional weight loss, fatigue, lethargy) and given the possibility of an underlying, incurable medical illness, the medical team is of the belief that life expectancy is limited to days to weeks, and has requested clarification of this woman's specific medical goals. Attending physician has requested palliative medicine to assist in furthering conversation with patient and family regarding the complex and sensitive medical issues of the perceived benefits/burdens of continued life prolonging treatments, realistic prognosis, perspectives on and dying, priority in clinical care and burden of physical, emotional and spiritual symptoms for patient and family. I have reviewed the medical record, radiographs, diagnostics, attempted to interview the patient (disoriented, no registration) and subsequently interviewed the patient DPO[facility]. The following aspects are pertinent, current and remote medical history, social/emotional and family dynamics, current medications and effects, ROS, examination findings, prognosis, care planning, goal setting. Meds Home Medications and Allergies Home Medications Medication Instructions Recorded Confirmed Type alendronate 70 mg PO QWEEK 10/24/19 10/24/19 History amlodipine 5 mg PO DAILY 10/24/19 10/24/19 History ampicillin-sulbactam 12 g IV DAILY 10/24/19 10/24/19 History ascorbic acid (vitamin C) 500 mg PO DAILY 10/24/19 10/24/19 History aspirin [Adult Low Dose Aspirin] 81 mg PO DAILY 10/24/19 10/24/19 History cholecalciferol (vitamin D3) 25 mcg PO DAILY 10/24/19 10/24/19 History [Vitamin D3] clonidine HCl 0.1 mg PO BID 10/24/19 10/24/19 History diltiazem HCl 120 mg PO DAILY 10/24/19 10/24/19 History furosemide 40 mg PO QAM 10/24/19 10/24/19 History gabapentin 900 mg PO Q8HR 10/24/19 10/24/19 History losartan 100 mg PO DAILY 10/24/19 10/24/19 History metformin 500 mg PO BID 10/24/19 10/24/19 History metoprolol tartrate 50 mg PO BID 10/24/19 10/24/19 History mupirocin calcium 1 applic TOPICAL DAILY 10/24/19 10/24/19 History oxybutynin chloride 5 mg PO DAILY 10/24/19 10/24/19 History oxycodone 5 mg PO QID PRN 10/24/19 10/24/19 History pantoprazole 40 mg PO BID 10/24/19 10/24/19 History potassium chloride 20 meq PO QAM 10/24/19 10/24/19 History sucralfate 10 ml PO QID 10/24/19 10/24/19 History zinc 50 mg PO DAILY 10/24/19 10/24/19 History atorvastatin 20 mg PO DAILY 10/26/19 10/26/19 History Allergies Allergy/AdvReac Type Severity Reaction Status Date / Time No Known Allergies Allergy Verified 10/24/19 12:49 Review of Systems Cardiovascular Cardiovascular: Reports dyspnea Comments: Atrial fibrillation rate of 100 noted on ECG monitor. Patient's blood pressure supported with dopamine. Heart rate is supported by amiodarone. Respiratory Respiratory: Reports dyspnea and Reports stridor Exam Vital Signs (past 8 hours): - 10/26/19 08:00 10/26/19 08:30 10/26/19 09:00 Temperature 97.8 F Pulse Rate 97 H 86 Respiratory Rate 21 21 Blood Pressure 87/63 L 96/56 L Pulse Oximetry 94 10/26/19 09:45 10/26/19 10:00 10/26/19 10:36 Temperature Pulse Rate 125 H Respiratory Rate 30 H Blood Pressure 103/75 103/75 Pulse Oximetry 92 10/26/19 10:56 10/26/19 11:00 10/26/19 12:00 Temperature 97.7 F Pulse Rate 131 H 54 L Respiratory Rate 36 H 27 H Blood Pressure 103/75 118/69 96/67 Pulse Oximetry 93 Fraction of Inspired Oxygen 50 Oxygen Delivery Method BiPAP Oxygen Flow Rate 6 Narrative Exam Narrative: 73-year-old woman with anasarca sits in bed, has difficulty finding a comfortable position. She deepthi air occasionally, endorses shortness of breath. Skin is meredith. She at times has difficulty focusing on the conversation and answering more than simple questions. Neck Neck: JVD Cardio Other: ECG indicates atrial fibrillation rate of 100. Blood pressure is 106/52, supported by dopamine. Neuro General: patient alert, patient oriented x3 and other (Sleepy, at times has difficulty focusing on conversation) Objective Labs Result Diagrams: 10/26/19 04:35 10/26/19 04:35 Labs: Laboratory Results - last 24 hr 10/26/19 10/26/19 10/26/19 04:35 04:35 04:35 WBC 6.2 RBC 3.23 L Hgb 9.0 L Hct 28.8 L MCV 89.2 MCH 27.7 MCHC 31.1 RDW 19.6 H Plt Count 141 L Neut % (Auto) 70.6 Lymph % (Auto) 16.1 L Churchill % (Auto) 9.9 Eos % (Auto) 0.3 L Baso % (Auto) 3.1 H Neut # (Auto) 4400 Lymph # (Auto) 1000 L Churchill # (Auto) 600 Eos # (Auto) 0 Baso # (Auto) 200 H RBC Morphology Not Reportable Anisocytosis 1+ H ABG pH ABG pCO2 ABG pO2 ABG HCO3 ABG Total CO2 ABG O2 Saturation ABG Base Excess FiO2 Sodium 140 Potassium 4.8 Chloride 106 Carbon Dioxide 29 BUN 41 H Creatinine 1.46 H Estimated GFR 35.1 L BUN/Creatinine Ratio 28.1 H Glucose 97 Calcium 8.5 Magnesium 2.1 Ferritin 19 Total Bilirubin 0.6 AST 18 ALT < 4 Alkaline Phosphatase 61 Total Protein 5.5 L Albumin 2.6 L Globulin 2.9 Albumin/Globulin Ratio 0.9 L Vitamin B12 429 Folate 8.6 TSH Free T4 10/26/19 10/26/19 10/26/19 04:35 08:11 09:42 WBC RBC Hgb Hct MCV MCH MCHC RDW Plt Count Neut % (Auto) Lymph % (Auto) Churchill % (Auto) Eos % (Auto) Baso % (Auto) Neut # (Auto) Lymph # (Auto) Churchill # (Auto) Eos # (Auto) Baso # (Auto) RBC Morphology Anisocytosis ABG pH 7.23 L* 7.23 L* ABG pCO2 67.7 H* 67.6 H* ABG pO2 84 47 L* ABG HCO3 29 H 29 H ABG Total CO2 31 31 ABG O2 Saturation 94 L 73 L* ABG Base Excess 1.0 1.0 FiO2 44 28 Sodium Potassium Chloride Carbon Dioxide BUN Creatinine Estimated GFR BUN/Creatinine Ratio Glucose Calcium Magnesium Ferritin Total Bilirubin AST ALT Alkaline Phosphatase Total Protein Albumin Globulin Albumin/Globulin Ratio Vitamin B12 Folate TSH 5.75 H Free T4 1.02 10/26/19 10:56 WBC RBC Hgb Hct MCV MCH MCHC RDW Plt Count Neut % (Auto) Lymph % (Auto) Churchill % (Auto) Eos % (Auto) Baso % (Auto) Neut # (Auto) Lymph # (Auto) Churchill # (Auto) Eos # (Auto) Baso # (Auto) RBC Morphology Anisocytosis ABG pH 7.23 L* ABG pCO2 71.9 H* ABG pO2 90 ABG HCO3 30 H ABG Total CO2 32 H ABG O2 Saturation 95 ABG Base Excess 2.0 FiO2 60 Sodium Potassium Chloride Carbon Dioxide BUN Creatinine Estimated GFR BUN/Creatinine Ratio Glucose Calcium Magnesium Ferritin Total Bilirubin AST ALT Alkaline Phosphatase Total Protein Albumin Globulin Albumin/Globulin Ratio Vitamin B12 Folate TSH Free T4 Assessment & Recommendations A & R narrative: Discussion: Met with patient and her daughter Vinita at the bedside. Discussion with patient and her daughter regarding her current medical issues. Both the patient and Vinita seems to lack insight into the patient's very poor overall prognosis, though patient states, ?they have told me that I am going to .? Patient agrees that she does not wish to be resuscitated, and is not sure where she would like to spend her final days and hours. She has a [place] state POLST indicating she does not wish to be resuscitated. She has presented with possibility of going home with hospice, she agrees that it may be very challenging for her daughter to help take care of her personal needs at the end of life, though she would prefer to at home. They are expecting the patient's ex- to arrive in town with his current , to help support the daughter, they do not believe that he will be helpful in caring for her personal eats however. Discussion regarding the hospice Medicare benefit, they are aware that a hospice consult has been placed. Discussed compassionate withdrawal of care, with institution of comfort care. Patient would like the time to discuss this opportunity with her daughter. Updated the medical team regarding the outcome of this palliative medicine consultation. Update: Within minutes of the palliative medicine consultation termination, patient was noted by nursing staff to have bradied down with heart rate in the 40s, was found to be agonal breaths. Patient with daughter at bedside. Palliative medicine provided comfort and support to daughter, calling family member to initiate a phone tree to deliver the news of patient's expiration. Recommendations: -maintain DNA are in patient's EMR -maintain [place] POLST in patient's EMR -hospice referral for evaluation Impression: -acute on chronic congestive heart failure -respiratory failure with hypoxia -aortic aneurysm -hypotension -atrial fibrillation with RVR -cor pulmonale -dyspnea -palliative medicine consultation Coding: To remain informed regarding current treatment opportunities, provider reviewed extensive additional documentation of multiple treatment providers/facilities which was utilized to update the management plan. Total time in review of additional medical information is 23 minutes, external to in person evaluation. Time in assessment and management of acute and chronic medical diagnoses, pertinent history to palliative medicine decision making, discussion and management of clinical findings enumerated above as well as fears regarding the transition to a more end of life plan and and dying is 28 minutes, more than half of which is necessary for education and counseling. Advanced Care Planning discussion time is 15 minutes. The patient currently has testamentary documents for estate planning, [facility] has POLST and statement of wishes. Dialogue addresses patient preferences at the end/near end of life including resuscitation wishes (no CPR, DNAR). Additional care limits discussed above. Time Spent With Patient Time with patient: Greater than 35 minutes
--- NOTE | 2019-10-26 13:46 | CM.DPC ---
DCP Cont: [facility]. She stated that informational visit could not be done until tomorrow. Let her know that this case specialist will follow up with hospice tomorrow to set up a time, and daughter will meet with palliative care nurse today. Charmaine stated that their census is high at this time, as well. P: DCP to continue to follow. Will attempt to meet up with Sirisha Segura today, and will reach out to hospice tomorrow to set up informational visit via phone with daughter. Dalila Ayala RN/E Marketing Specialist
--- NOTE | 2019-10-26 14:12 | OT.IPNOTE ---
Touched base with nursing regarding pt's status if able to be seen for therapy this PM. Nursing states still HOLD as not medically appropriate for therapy at this time.
--- NOTE | 2019-10-26 14:45 | PT-IP ANOTE ---
Pt expressed not wanting to work with therapy I can't do physical therapy right now. I am having alot of swelling. I am on hospice, how can I work with therapy. STEVEDORE HOLD discussed patient's concerns with hospitalist with recommendation of holding off today and reassessing how patient in doing tomorrow, would be beneficial for patient to mobilize within to tolerance. Therapy will return tomorrow.
--- NOTE | 2019-10-26 15:24 | PC.NURSE ---
Day Shift Note Pt alert and oriented x2. Restless and picking at oxygen and bedding intermittently. Able to make needs known and participate in care. SpO2 difficult to obtain due to poor circulation - MD aware and ABG obtained while pt on 6L NC; SpO2 94% on ABG along with elevated CO2. MD notified and requested to turn oxygen down to 2L NC and repeat ABG in 1 hr - this was done and SpO2 73%. MD updated and RT placed pt on bipap at about 1020 with FiO2 AT 50% AND 16/8. Pt picking and pulling at bipap mask and required frequent reminders to leave bipap in place. Settings on bipap decreased by RT (see RT charting) and pt continued to not tolerate bipap and removed mask, refusing to put back on at 1430. Placed on 4L NC, SPO2 seen to be low 90s when a good pleth is noted on pulse oximetry. MD updated. Dopamine gtt started at 5 mcg/kg/min at 0900 and Amiodarone gtt started at 0920 per protocol (currently at 1 mg/min). BP has been stable throughout shift - see VS trends. HR in the 90-120s, afib. Bearden catheter in place and draining clear yellow urine. Dressings to BLEs C/D/I - dressing orders from [facility] obtained and placed in chart along with supplies needed. Pt daughter at bedside, palliative care consult underway.
[2019-10-26] MEDS: OXYCODONE IR 10 MG TABLET PO (15:42)
[2019-10-26] MEDS: AMIODARONE 541 MG/300.56 ML PIGGYBACK 16.7 MG IV (15:47)
--- NOTE | 2019-10-26 15:49 | PM.PN.1 ---
Exam Vital Signs (past 8 hours): - 10/26/19 08:00 10/26/19 08:30 10/26/19 09:00 Temperature 97.8 F Pulse Rate 97 H 86 Respiratory Rate 21 21 Blood Pressure 87/63 L 96/56 L Pulse Oximetry 94 10/26/19 09:45 10/26/19 10:00 10/26/19 10:36 Temperature Pulse Rate 125 H Respiratory Rate 30 H Blood Pressure 103/75 103/75 Pulse Oximetry 92 10/26/19 10:56 10/26/19 11:00 10/26/19 12:00 Temperature 97.7 F Pulse Rate 131 H 54 L Respiratory Rate 36 H 27 H Blood Pressure 103/75 118/69 96/67 Pulse Oximetry 93 10/26/19 13:00 10/26/19 13:22 10/26/19 14:00 Temperature Pulse Rate 123 H 110 H Respiratory Rate 25 H 27 H Blood Pressure 96/67 129/97 H Pulse Oximetry 90 L 10/26/19 15:00 10/26/19 15:44 Temperature 98.4 F Pulse Rate 135 H Respiratory Rate 25 H Blood Pressure 106/76 Pulse Oximetry 91 Fraction of Inspired Oxygen 35 Oxygen Delivery Method Nasal Cannula Oxygen Flow Rate 4 Objective Labs Result Diagrams: 10/26/19 04:35 10/26/19 04:35 Labs: Laboratory Results - last 24 hr 10/26/19 10/26/19 10/26/19 04:35 04:35 04:35 WBC 6.2 RBC 3.23 L Hgb 9.0 L Hct 28.8 L MCV 89.2 MCH 27.7 MCHC 31.1 RDW 19.6 H Plt Count 141 L Neut % (Auto) 70.6 Lymph % (Auto) 16.1 L [place] % (Auto) 9.9 Eos % (Auto) 0.3 L Baso % (Auto) 3.1 H Neut # (Auto) 4400 Lymph # (Auto) 1000 L [place] # (Auto) 600 Eos # (Auto) 0 Baso # (Auto) 200 H RBC Morphology Not Reportable Anisocytosis 1+ H ABG pH ABG pCO2 ABG pO2 ABG HCO3 ABG Total CO2 ABG O2 Saturation ABG Base Excess FiO2 Sodium 140 Potassium 4.8 Chloride 106 Carbon Dioxide 29 BUN 41 H Creatinine 1.46 H Estimated GFR 35.1 L BUN/Creatinine Ratio 28.1 H Glucose 97 Calcium 8.5 Magnesium 2.1 Ferritin 19 Total Bilirubin 0.6 AST 18 ALT < 4 Alkaline Phosphatase 61 Total Protein 5.5 L Albumin 2.6 L Globulin 2.9 Albumin/Globulin Ratio 0.9 L Vitamin B12 429 Folate 8.6 TSH Free T4 10/26/19 10/26/19 10/26/19 04:35 08:11 09:42 WBC RBC Hgb Hct MCV MCH MCHC RDW Plt Count Neut % (Auto) Lymph % (Auto) [place] % (Auto) Eos % (Auto) Baso % (Auto) Neut # (Auto) Lymph # (Auto) [place] # (Auto) Eos # (Auto) Baso # (Auto) RBC Morphology Anisocytosis ABG pH 7.23 L* 7.23 L* ABG pCO2 67.7 H* 67.6 H* ABG pO2 84 47 L* ABG HCO3 29 H 29 H ABG Total CO2 31 31 ABG O2 Saturation 94 L 73 L* ABG Base Excess 1.0 1.0 FiO2 44 28 Sodium Potassium Chloride Carbon Dioxide BUN Creatinine Estimated GFR BUN/Creatinine Ratio Glucose Calcium Magnesium Ferritin Total Bilirubin AST ALT Alkaline Phosphatase Total Protein Albumin Globulin Albumin/Globulin Ratio Vitamin B12 Folate TSH 5.75 H Free T4 1.02 10/26/19 10:56 WBC RBC Hgb Hct MCV MCH MCHC RDW Plt Count Neut % (Auto) Lymph % (Auto) [place] % (Auto) Eos % (Auto) Baso % (Auto) Neut # (Auto) Lymph # (Auto) [place] # (Auto) Eos # (Auto) Baso # (Auto) RBC Morphology Anisocytosis ABG pH 7.23 L* ABG pCO2 71.9 H* ABG pO2 90 ABG HCO3 30 H ABG Total CO2 32 H ABG O2 Saturation 95 ABG Base Excess 2.0 FiO2 60 Sodium Potassium Chloride Carbon Dioxide BUN Creatinine Estimated GFR BUN/Creatinine Ratio Glucose Calcium Magnesium Ferritin Total Bilirubin AST ALT Alkaline Phosphatase Total Protein Albumin Globulin Albumin/Globulin Ratio Vitamin B12 Folate TSH Free T4
--- NOTE | 2019-10-26 16:46 | PM.DDS.1 ---
Discharge Summary Hospital Course Date of Admission: 10/24/19 16:14 Date of : 10/26/19 Primary care provider: Giuliana Dao PA-C Consults: 10/24/19 12:44 Consult to Respiratory Therapy Evaluate & Treat Comment: Physician Instructions: Evaluate and treat 10/24/19 17:54 Consult to Dietitian, Adult Routine Comment: Reason For Exam: low BMI 10/24/19 20:25 Consult to Discharge Planning Routine Comment: Consult to Occupational Therapy Evaluate & Treat Comment: Physician Instructions: Evaluate and treat Consult to Physical Therapy Evaluate & Treat Comment: Physician Instructions: Evaluate and Treat 10/25/19 02:13 Consult to Wound Care Routine Comment: Establish patient Consulting Provider: [facility] 10/25/19 22:52 Consult to Palliative Care Routine Comment: right heart failure severe anasarca, code status Consulting Provider: Sirisha Segura 10/25/19 23:48 Consult to Wound Care Routine Comment: Consulting Provider: [facility] 10/26/19 08:17 Consult to Cardiology Routine Comment: Consulting Provider: Hawa Coronado Reason for consultation: Right sided HF, severe TR, anasarca to chest wall, PAD Has provider been notified: Yes Discharge provider: Moriah Villegas D.O. Discharge Diagnosis: 1. PEA Arrest 2. Severe right sided heart failure due to decompensated cor pulmonale and pulmonary hypertension 3. Chronic atrial fibrillation with rapid ventricular response 4. Acute kidney injury 5. Acute on chronic generalized weakness 6. Peripheral vascular disease, status post multiple left-sided stents and left femoral-popliteal bypass, with infected chronic wounds of bilateral lower legs 7. History of CVA with left-sided weakness and hyperlipidemia 8. Hypertension 9. Peptic ulcer disease with recent GI bleed 10. Diabetes mellitus type 2, non-insulin using 11. Normocytic normochromic anemia 12. Severely dilated abdominal aortic aneurysm Hospital Course: Xochitl Earl is a 73-year-old female who appears older than her stated age with a past medical history significant for CVAs with residual left-sided weakness, hypertension, hyperlipidemia, chronic atrial fibrillation (anticoagulated only with aspirin due to significant GI bleed in July 2019), diabetes mellitus type II, non-insulin using, peptic ulcer disease with recent GI bleed and peripheral vascular disease of bilateral lower extremities with multiple stents and fem-pop bypass to left lower extremity with chronic leg wounds on IV antibiotics, receiving hyperbaric chamber therapy and followed closely by wound care who presented to the ED with worsening generalized weakness and lower extremity swelling. The patient was found to be in severe right-sided heart failure with decompensated cor pulmonale and pulmonary hypertension. Overnight on 10/24-10/25 patient was found to have stroke-like symptoms by nursing staff at 4:00 a.m.. Evaluation by Patel WEAVER and ED physician Dr. Chacko CTA head and neck was negative and a discussion was had with [facility] which found patient to be tPA candidate. Patient was seen and examined in the morning and found to be mentating and talking clearly. Her gait disturbance had resolved. She may have possibly had a TIA. Cardiology consult was pursued and recommended placing patient on dopamine, aggressive diuresis, amiodarone to control heart rate and pursuing hospice. The patient's daughter Vinita brought in POLST form which indicated patient was DNR/DNI and her code status was updated. Palliative care consult was pursued to discuss goals of care and hospice. The patient's daughter was at bedside. Patient was being turn by nursing staff and let out a cry and heart rate dropped and she PEA arrested. Time of 16:33. Objective Labs Result Diagrams: 10/26/19 04:35 10/26/19 04:35 Labs: Laboratory Results - last 24 hr 10/26/19 10/26/19 10/26/19 04:35 04:35 04:35 WBC 6.2 RBC 3.23 L Hgb 9.0 L Hct 28.8 L MCV 89.2 MCH 27.7 MCHC 31.1 RDW 19.6 H Plt Count 141 L Neut % (Auto) 70.6 Lymph % (Auto) 16.1 L [place] % (Auto) 9.9 Eos % (Auto) 0.3 L Baso % (Auto) 3.1 H Neut # (Auto) 4400 Lymph # (Auto) 1000 L [place] # (Auto) 600 Eos # (Auto) 0 Baso # (Auto) 200 H RBC Morphology Not Reportable Anisocytosis 1+ H ABG pH ABG pCO2 ABG pO2 ABG HCO3 ABG Total CO2 ABG O2 Saturation ABG Base Excess FiO2 Sodium 140 Potassium 4.8 Chloride 106 Carbon Dioxide 29 BUN 41 H Creatinine 1.46 H Estimated GFR 35.1 L BUN/Creatinine Ratio 28.1 H Glucose 97 Calcium 8.5 Magnesium 2.1 Ferritin 19 Total Bilirubin 0.6 AST 18 ALT < 4 Alkaline Phosphatase 61 Total Protein 5.5 L Albumin 2.6 L Globulin 2.9 Albumin/Globulin Ratio 0.9 L Vitamin B12 429 Folate 8.6 TSH Free T4 10/26/19 10/26/19 10/26/19 04:35 08:11 09:42 WBC RBC Hgb Hct MCV MCH MCHC RDW Plt Count Neut % (Auto) Lymph % (Auto) [place] % (Auto) Eos % (Auto) Baso % (Auto) Neut # (Auto) Lymph # (Auto) [place] # (Auto) Eos # (Auto) Baso # (Auto) RBC Morphology Anisocytosis ABG pH 7.23 L* 7.23 L* ABG pCO2 67.7 H* 67.6 H* ABG pO2 84 47 L* ABG HCO3 29 H 29 H ABG Total CO2 31 31 ABG O2 Saturation 94 L 73 L* ABG Base Excess 1.0 1.0 FiO2 44 28 Sodium Potassium Chloride Carbon Dioxide BUN Creatinine Estimated GFR BUN/Creatinine Ratio Glucose Calcium Magnesium Ferritin Total Bilirubin AST ALT Alkaline Phosphatase Total Protein Albumin Globulin Albumin/Globulin Ratio Vitamin B12 Folate TSH 5.75 H Free T4 1.02 10/26/19 10:56 WBC RBC Hgb Hct MCV MCH MCHC RDW Plt Count Neut % (Auto) Lymph % (Auto) [place] % (Auto) Eos % (Auto) Baso % (Auto) Neut # (Auto) Lymph # (Auto) [place] # (Auto) Eos # (Auto) Baso # (Auto) RBC Morphology Anisocytosis ABG pH 7.23 L* ABG pCO2 71.9 H* ABG pO2 90 ABG HCO3 30 H ABG Total CO2 32 H ABG O2 Saturation 95 ABG Base Excess 2.0 FiO2 60 Sodium Potassium Chloride Carbon Dioxide BUN Creatinine Estimated GFR BUN/Creatinine Ratio Glucose Calcium Magnesium Ferritin Total Bilirubin AST ALT Alkaline Phosphatase Total Protein Albumin Globulin Albumin/Globulin Ratio Vitamin B12 Folate TSH Free T4
[2019-10-26] MEDS: LORazepam 2 MG/ML INJ (17:05)
[2019-10-26] MEDS: MORPHINE 2 MG/ML INJ (17:05)
--- NOTE | 2019-10-26 18:05 | PC.NURSE ---
1600 Pt being reposition to left side by BASIN TENDER, patient requested repositioning. Patient cried out during repositioning, it was noted at that time that heart rate and cardiac rhythms changed, this nurse and other ICU nurse Neptali went into pt room and noted that she was agonal breathing, listened to chest and checked pulse, there was no heartbeat, called Dr. Villegas to bedside, she confirmed that pt was dying verbal orders to give 2mg Morphine and 1mg Ativan to ease pt discomfort. POLST form presented today states that pt is a DNR/DNI, so no resuscitation was used. Medications administered, daughter at bedside holding patient's hand. At exactly 1633 pt stopped breathing, Dr. Villegas updated on time of , daughter at bedside. Charge nurse Laura was notified that pt had passed, [facility] home was contacted, paperwork completed per protocol.
--- NOTE | 2019-10-27 12:50 | CM.DPNOTE ---
DCP: Updated [facility]. Adryan at [facility] is aware as well. Dalila Ayala RN/[employer]
== END 2019-10-26 19:05 | disposition expired | DRG 308 ==
LOC: ED 15:41 → AC 16:15 → ICU 17:47
PROVIDERS: Nurse Practitioner Adult Health; Admitting Provider Internal Medicine; Emergency Provider Emergency Medicine; Family Provider Physician Assistant; PCP Physician Assistant; Referring Provider Physician Assistant; Visit Provider Internal Medicine
DX: I48.20 Chronic atrial fibrillation, unspecified (principal); J96.02 Acute respiratory failure with hypercapnia; G93.41 Metabolic encephalopathy; N17.9 Acute kidney failure, unspecified; I69.354 Hemiplegia and hemiparesis following cerebral infarction affecting left non-dominant side; G45.9 Transient cerebral ischemic attack, unspecified; I13.0 Hypertensive heart and chronic kidney disease with heart failure and stage 1 through stage 4 chronic kidney disease, or unspecified chronic kidney disease; R18.8 Other ascites; I46.9 Cardiac arrest, cause unspecified; I50.811 Acute right heart failure; I27.81 Cor pulmonale (chronic); I27.29 Other secondary pulmonary hypertension; E11.51 Type 2 diabetes mellitus with diabetic peripheral angiopathy without gangrene; I71.9 Aortic aneurysm of unspecified site, without rupture; I08.1 Rheumatic disorders of both mitral and tricuspid valves; E78.5 Hyperlipidemia, unspecified; D64.9 Anemia, unspecified; R29.6 Repeated falls; S81.802D Unspecified open wound, left lower leg, subsequent encounter; S81.801D Unspecified open wound, right lower leg, subsequent encounter; Z79.01 Long term (current) use of anticoagulants; Z79.84 Long term (current) use of oral hypoglycemic drugs; Z11.59 Encounter for screening for other viral diseases; Z87.891 Personal history of nicotine dependence; Z66 Do not resuscitate
CPT/HCPCS: 36415; 36600; 51701; 70450; 70496; 70498; 71045; 71275; 74174; 80048; 80053; 80061; 81001; 82550; 82607; 82728; 82746; 82805; 82962; 83036; 83540; 83550; 83605; 83735; 83880; 84145; 84439; 84443; 84484; 85025; 85610; 85730; 87040; 87077; 87086; 87635; 87797; 93005; 93010; 93306; 93971; 94660; 94760; 94762; 96374; 96375; 96376; 97163; 97165; 99232; 99285; 99497; J0282; J1644; J1940; J2060; J2270; J2405; Q9967